=== PATIENT | male | born 1940 | race Caucasian/White ===

== ENCOUNTER 2020-02-23 06:49 | Inpatient (IN) | payer MEDICARE, SELFPAY ==
[2020-02-23] VITALS (16 sets, daily range): BP systolic 92–192; BP diastolic 59–94; PULSE 71–85; RESP 15–20; TEMP 36.4–36.7; O2SAT 96–100; BMI 30.9
--- NOTE | 2020-02-23 | ECG_ITS ---
Measurements Intervals [place] Rate: 71 P: 40 CO: 260 QRS: -45 QRSD: 170 T: -13 QT: 441 QTc: 482 Interpretive Statements SINUS RHYTHM WITH FIRST DEGREE AV BLOCK RIGHT BUNDLE BRANCH BLOCK LEFT ANTERIOR FASCICULAR BLOCK ABNORMAL ECG Electronically Signed On 02-23-2020 15:36:02 CDT by Rob Pierre D.O.
--- NOTE | 2020-02-23 | ECHO_ITS ---
Patient Info Name: Kenan Grubbs Age: 79 years : 1940 Gender: Male Ht: 70 in Wt: 216 lbs BSA: 2.23 m2 HR: 71 bpm BP: 103 / 59 mmHg Heart Rhythm: Sinus Rhythm Technical Quality: Good Exam Date: 02/23/2020 3:55 PM Exam Location: [facility] Patient Status: Inpatient Admit Date: 02/23/2020 Staff Ordering Physician: Tj Whyte MD Anchor Tack Puller: Nik Monzon RDCS Attending Provider: William Teixeira MD Referring Physician: Isabell GALDAMEZ; Exam Type: CA echo doppler color flow Study Info Indications R07.9 - Chest pain, unspecified Complete two-dimensional, color flow and Doppler transthoracic echocardiogram is performed. Strain analysis performed. History/Risk Factors Chest pain; COPD, Afib, CAD, HTN. Summary 1. Left ventricular chamber dimension is mildly enlarged. 2. Left ventricular systolic function is normal, estimated at 55-60%. 3. There is mildly increased left ventricular wall thickness. 4. Left ventricular septal wall motion is normal. 5. Global longitudinal strain is abnormal at -12 %. 6. The left ventricular diastolic function is grade I diastolic dysfunction. 7. The inferior wall is hypokinetic. 8. All other betancourt appear normal. 9. Left atrial chamber dimension is moderately enlarged. 10. Right atrial chamber dimension is mildly enlarged. 11. There is mild aortic valve regurgitation. 12. There is mild aortic valve calcification. 13. There is mild mitral valve regurgitation. 14. There is mild tricuspid valve regurgitation. 15. Mild pulmonary hypertension, estimated pulmonary arterial systolic pressure is 41 mmHg. 16. The aortic root size at the sinus of Valsalva is mildly dilated. Left Ventricle Left ventricular chamber dimension is mildly enlarged. Left ventricular systolic function is normal, estimated at 55-60%. There is mildly increased left ventricular wall thickness. Left ventricular septal wall motion is normal. The left ventricular diastolic function is grade I diastolic dysfunction. Global longitudinal strain is abnormal at -12 %. The inferior wall is hypokinetic. All other betancourt appear normal. Right Ventricle Right ventricular chamber dimension is normal. Right ventricular systolic function is normal. Left Atria Left atrial chamber dimension is moderately enlarged. Right Atria Right atrial chamber dimension is mildly enlarged. Atrial Septum Intact interatrial septum visualized by color flow imaging. Aortic Valve The aortic valve is trileaflet. There is no aortic valve stenosis. There is mild aortic valve regurgitation. There is mild aortic valve calcification. Pulmonic Valve The pulmonic valve is normal. There is no pulmonic valve stenosis. There is trace pulmonic regurgitation. Mitral Valve The mitral valve has calcified annulus. There is no mitral valve stenosis. There is mild mitral valve regurgitation. Tricuspid Valve The tricuspid valve leaflets are normal. There is no significant tricuspid valve stenosis. There is mild tricuspid valve regurgitation. Mild pulmonary hypertension, estimated pulmonary arterial systolic pressure is 41 mmHg. Pericardium/Pleural The pericardium appears normal. There is trivial pericardial effusion. Inferior Vena Cava Dilated inferior vena cava with <50% collapse upon inspiration consistent with elevated right atrial pressure, 10 mmHg. Aorta The aortic root size at the sinus of Valsalva is mildly dilated.
--- NOTE | ~2020-02-23 | CT_ITS ---
EXAMINATION: CT abdomen pelvis w con DATE: 02/23/2020 08:09 INDICATION: Upper abdominal pain, right upper quadrant. Nausea and vomiting. TECHNIQUE: Computed tomography (CT) of the abdomen and pelvis was performed with 100 cc Omnipaque 350 intravenous contrast. Automated exposure control and iterative reconstruction technique were employe d. Exam dose: 1161.58 mGy-cm total exam DLP. COMPARISON: 02/06/2019 CT abdomen pelvis FINDINGS: There is mild infiltrate, atelectasis and/or scarring in the lower lobes. There is mild dis coid atelectasis or scarring of the middle lobe. There is a small likely benign right greater fissure lymph node. Cardiomegaly. No pericardial effusion. Slight left pleural effusion. Small sliding hiatal hernia. There is intrahepatic and extrahepatic bile duct dilatation, common bile duct dilated up to 14 mm genoveva meter. The common bile duct tapers distally, without any obvious filling defect. Common bile duct siz e is not significantly changed compared to 02/06/2019, possibly secondary to cholecystectomy. Several small hepatic cysts are suggested, the largest measuring approximately 7 mm. Normal splenic size. No pancreatic mass lesion or ductal dilatation or abnormal pancreatic calcificat ion. Normal morphology of the adrenal glands. Occasional bilateral renal cysts, the largest situated on the right, measuring approximately 3.2 cm d imension. No suspicious solid renal lesion is evident. No urinary tract calculus or hydroureteronephr osis. There is an abdominal aortobiiliac endovascular stent for repair of infrarenal abdominal aortic aneur ysm. The aneurysm measures up to 6.5 cm diameter compared to approximately 6.1 cm on 02/06/2019. No intraperitoneal or retroperitoneal or pelvic mass lesion or adenopathy or ascites is evident. There is soft tissue thickening along the posterior wall of the urinary bladder which is most likely due to prostate enlargement versus much less likely possibility of prostate or urinary bladder malign aditya. The 1.3 cm peripheral density of the left trigonal region noted on the 02/06/2019 CT abdomen pelv is examination is no longer present. Diverticulosis of the colon; no CT evidence of diverticulitis. Normal appendix. No bowel obstruction, bowel wall thickening, pneumatosis or intraperitoneal free air is detected. Healed or advanced healing lower left rib fractures. Degenerative changes of the thoracic and lumbar spine, including diffuse idiopathic skeletal hyperost osis of the lower thoracic spine. There are multiple compression fracture deformities of the lower th oracic and lumbar spine including T11, L1 and L5. Bilateral L4 pars interarticularis defects are again noted, without spondylolisthesis. No suspicious osteolytic or osteoblastic lesions are noted. Bilateral fat-containing inguinal hernias. IMPRESSION: Stable bile duct dilatation, likely secondary to cholecystectomy Small sliding hiatal hernia Hepatic and renal cysts Diverticulosis of the colon Abdominal aortic and biiliac endovascular stent; mildly increased size of infrarenal fusiform abdomin al aortic aneurysm, measuring up to 6.5 cm diameter compared to 6.1 cm on 02/06/2019 Reviewed, dictated and finalized at [facility]. Reviewed, dictated and finalized at [facility]. IMPRESSION: Stable bile duct dilatation, likely secondary to cholecystectomy Small sliding hiatal hernia Hepatic and renal cysts Diverticulosis of the colon Abdominal aortic and biiliac endovascular stent; mildly increased size of infra renal fusiform abdominal aortic aneurysm, measuring up to 6.5 cm diameter nick red to 6.1 cm on 02/06/2019
--- NOTE | ~2020-02-23 | NM_ITS ---
EXAMINATION: NM betsy stress w perfusion DATE: 02/24/2020 12:34 INDICATION: Chest tightness TECHNIQUE: Rest images were obtained following intravenous administration of 9.2 mCi Tc99m tetrofosmi n (Myoview). The patient was infused intravenously with Lexiscan (Regadenoson). Then, 87.7 mCi Tc99m tetrofosmin (Myoview) was administered intravenously, and stress images were obtained. Data was recon structed into short axis and horizontal and vertical long axis SPECT images. Gated SPECT images were also obtained. COMPARISON: None. FINDINGS: There is no definite reversible or fixed perfusion abnormality to suggest ischemia or infar ction. There is normal left ventricular chamber size, wall motion and ejection fraction. Left ventr icular ejection fraction measures 63%. IMPRESSION: 1. Normal myocardial perfusion at rest and during stress. 2. Left ventricular ejection fraction measuring 63%. Reviewed, dictated and finalized at [facility].
--- NOTE | 2020-02-23 07:00 | ECG_ITS ---
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 COMPARED TO ECG 07/31/2019 10:42:53 SINUS RHYTHM NOW PRESENT FIRST DEGREE AV BLOCK NOW PRESENT LEFT-AXIS DEVIATION NOW PRESENT MTDD
--- NOTE | 2020-02-23 07:05 | ED.ABDPAIN ---
HPI - Abdominal Pain General Chief Complaint: Abdominal Pain Stated Complaint: RUQ abd pain Time Seen by Provider: 02/23/20 07:01 Source: patient and family Mode of arrival: EMS Limitations: no limitations History of Present Illness HPI narrative: Patient is a 79-year-old male with a history of Parkinson's dementia, COPD, atrial fibrillation on Eliquis, who presents to the emergency department for evaluation of chest and abdominal pain. Patient states he awakened this morning to a substernal chest pressure and upper epigastric abdominal pain. Patient also reports abdominal pain in the upper part of his right abdomen. He had associated dizziness, nausea, vomiting. Patient did not feel sweaty. He denies back pain. No ripping or tearing sensation to the flanks. No numbness or tingling. No syncope or loss of consciousness. Patient denies any cough or shortness of breath. No fever. No abdominal distention or diarrhea. Chest pain is currently resolved. Mild epigastric abdominal pain in a bandlike pattern across his abdomen. Related Data Home Medications Medication Instructions Recorded Confirmed alfuzosin mg PO 10/27/19 apixaban [Eliquis] mg 10/27/19 budesonide-formoterol [Symbicort] INHALATION 10/27/19 flecainide 10/27/19 fluticasone propionate INTRANASAL 10/27/19 ipratropium-albuterol [Combivent INHALATION 10/27/19 Respimat] isosorbide mononitrate mg PO 10/27/19 montelukast mg 10/27/19 triamterene-hydrochlorothiazid cap 10/27/19 aspirin 81 mg PO DAILY 02/23/20 polyethylene glycol 3350 [Miralax] 02/23/20 02/23/20 potassium chloride meq PO 02/23/20 02/23/20 sennosides [Perdiem Overnight mg 02/23/20 02/23/20 Relief] Allergies Allergy/AdvReac Type Severity Reaction Status Date / Time tetanus and diphtheria Allergy Severe FEVER, Verified 02/23/20 11:03 toxoids CHILLS clindamycin Allergy Unknown RASH Verified 02/23/20 11:03 amiodarone AdvReac Severe liver Verified 02/23/20 11:03 toxicity Review of Systems Review of Systems: Narrative: CONSTITUTIONAL: Denies fever, chills, or sweats. EYES: Denies visual changes ENT: Denies rhinorrhea, congestion CARDIOVASCULAR: Denies chest pain, palpitations, or edema. RESPIRATORY: Denies cough or dyspnea. GASTROINTESTINAL: Reports abdominal pain, nausea, vomiting, denies diarrhea GENITOURINARY: Denies dysuria or hematuria. SKIN: Denies rash or itching. MUSCULOSKELETAL: Denies back pain, joint pain, or myalgia. NEUROLOGIC: Denies headache, numbness, or weakness. Dizziness earlier, now resolved. [facility] Past Medical History Medical History Anemia Anxiety Arthritis of both knees Atrial fibrillation Bladder tumor Bowel obstruction BPH (benign prostatic hyperplasia) Cataracts, bilateral Constipation COPD (chronic obstructive pulmonary disease) Coronary artery disease Depression History of angina Hypercholesterolemia Hypertension Pneumonia Pulmonary embolism Tremor Urinary tract infection Surgical History Surgical History History of AAA (abdominal aortic aneurysm) repair History of cardiac cath History of cholecystectomy History of inguinal hernia repair Hx of CABG Family History Family History (Updated 02/23/20 @ 10:25 by Awilda Jay RN) Mother Acute myocardial infarction Social History Social History Smoking packs per day: 1 Smoking cigarettes per day: 20.0 Years smoked: 25 Smoking pack-years: 25.00 Smoking status: Former smoker Tobacco type: cigarettes Alcohol intake: current Substance use: never Additional living arrangements comments: Lives at home with daughter Gender identity (if verbalized by the patient): Male Spiritual care concerns: No Exam Narrative: Exam Narrative: GENERAL: Awake, alert, conversant, mild resting tremor bilate
--- NOTE | 2020-02-23 07:07 | ECG_ITS ---
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
--- NOTE | 2020-02-23 07:12 | PC.NURSE ---
PT CARE ASSUMED AT THIS TIME, ERP AT BEDSIDE FOR EVALUATION, PT NOTED TO BE IN AFIB WITH RVR, ERP INFORMED AND STATES NO EKG TO BE DONE, PT HAS KNOWN HX OF AFIB. PT SELF CONVERTS BACK TO SINUS WITH A HR IN THE 80'S WHILE ERP IS IN ROOM. PT RESTING COMFORTABLY IN BED AT THIS TIME, NO CONCERNS.
[2020-02-23 07:21] LABS: Basophils Percent Auto 0.3 % (0.2-1.2); Eosinophils Absolute Auto 0.2 K/mm3 (0-0.3); Eosinophils Percent Auto 2.6 % (0-4.4); Hematocrit 34.3 % (42.0-52.0); Hemoglobin 11.1 g/dL (14.0-18.0); Immature Granulocyte Absolute 0.02 K/mm3 (0.00-0.031); Immature Granulocyte Percent A 0.3 % (0-0.5); Lymphocytes Percent Auto 11.5 % (18.3-44.2); Mean Corpuscular HGB Conc 32.4 g/dl (32-36); Mean Corpuscular Hemoglobin 29.1 pg (26-34); Mean Corpuscular Volume 89.8 fl (80-100); Mean Platelet Volume 9.5 fl (7.4-10.4); Monocytes Absolute Auto 0.5 K/mm3 (0.1-0.6); Monocytes Percent Auto 8.1 % (2.6-8.5); Neutrophils Absolute Auto 4.7 K/mm3 (1.3-6.7); Neutrophils Percent Auto 77.2 % (45.5-73.1); Platelet Count Result 127 k/mm3 (150-375); Red Blood Count 3.82 M/mm3 (4.6-6.20); Red Cell Distribution Width 13.6 % (11.5-14.5); White Blood Count 6.1 K/mm3 (4.5-10.0)
[2020-02-23 07:33] LABS: Alanine Aminotransferase 12 U/L (4-50); Albumin Level 3.6 g/dL (3.5-5.1); Alkaline Phosphatase 124 U/L (38-126); Aspartate Amino Transferase 21 U/L (17-59); Bilirubin,Total 0.3 mg/dL (0.2-1.3); Blood Urea Nitrogen 28 mg/dL (9-20); Calcium 8.8 mg/dL (8.4-10.2); Carbon Dioxide 35 mmol/L (22-30); Chloride 100 mmol/L (98-107); Estimated Glomerular Filt Rate 49; Glucose 105 mg/dL (75-110); Lipase 64 U/L (23-300); Potassium 3.5 mmol/L (3.4-5.0); Sodium 139 mmol/L (137-145)
[2020-02-23 07:45] LABS: INR 1.1; Prothrombin Time 13.9 Seconds (11.1-14.7)
[2020-02-23 07:46] LABS: Partial Thromboplastin Time 28.3 SECONDS (22.3-36.8)
--- NOTE | 2020-02-23 07:51 | PC.NURSE ---
PT INFORMED OF NEED FOR URINE SAMPLE, REFUSING CATH. TECH AT BEDSIDE TAKING PT TO CT AT THIS TIME IN STRETCHER.
[2020-02-23 08:01] LABS: Troponin I < 0.012 ng/mL (0.000-0.034)
--- NOTE | 2020-02-23 08:13 | PC.NURSE ---
PT HAS RETURNED FROM CT AT THIS TIME. 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
--- NOTE | 2020-02-23 08:17 | PC.NURSE ---
PT ATTEMPTING URINE SAMPLE AT THIS TIME.
[2020-02-23 08:31] LABS: Add Urine Microscopic? YES; Appearance Urine Cloudy (Clear); Bacteria Urine 1+ /hpf; Bilirubin Urine Negative (Negative); Blood Urine 1+ (Negative); Color Urine Yellow (Yellow); Glucose Urine UA Negative (Negative); Ketones Urine Negative (Negative); Leukocyte Esterase Ur 3+ LEU/UL (Negative); Mucus Urine Rare /lpf; Nitrate Urine Negative (Negative); Protein Urine 1+ mg/dL (Negative); Specific Grav Ur 1.025 (1.001-1.035); Squamous Epithelial Cell Urine Rare /hpf (Few); Urobilinogen Urine Negative mg/dL (<2.0); WBC Urine >75 /hpf
[2020-02-23] MEDS: ONDANSETRON INJ 4 MG/2 ML VIAL IV PUSH (08:52)
[2020-02-23] MEDS: MORPHINE SULFATE 4 MG/ML INJ 2 MG IV PUSH (08:52)
[2020-02-23] MEDS: MAG HYDROX/AL HYDROX/SIMETH 30 ML UDC PO (08:52)
[2020-02-23] MEDS: SODIUM CHLORIDE 0.9% IV 500 ML 999 ML IV CONT (08:54)
[2020-02-23] MEDS: ASPIRIN 81 MG CHEWABLE TABLET 324 MG PO (09:37)
--- NOTE | 2020-02-23 10:12 | PC.NURSE ---
This patient, Kenan Grubbs, was admitted to IMU Room 232-01. Patient/family oriented to hospital policies and general routines including ID bracelet, bed and alarms, visiting hours, pain management, procedures, bathroom and other care routines, personal items, smoking policy, room service/diet, and visiting hours. Valuables list has been completed. Information on how to activate the Rapid Response Team has been discussed. Patient/Family are encouraged to report perceived risks to care and to ask questions if they do not understand what they are told or what they should do.
[2020-02-23 10:51] LABS: Troponin I < 0.012 ng/mL (0.000-0.034)
[2020-02-23] MEDS: NITROGLYCERIN SL 0.4 MG TABLET SUBLINGUAL ×2 (11:38→11:43)
--- NOTE | 2020-02-23 11:41 | ECG_ITS ---
Measurements Intervals [place] Rate: 75 P: 25 PA: 240 QRS: 107 QRSD: 166 T: 75 QT: 423 QTc: 473 Interpretive Statements SINUS RHYTHM WITH FIRST DEGREE AV BLOCK RIGHT AXIS DEVIATION RIGHT BUNDLE BRANCH BLOCK MINIMAL Q WAVES- INFERIOR LEADS ABNORMAL ECG Electronically Signed On 02-23-2020 12:35:02 CDT by Rob Pierre D.O.
--- NOTE | 2020-02-23 13:20 | PC.NURSE ---
Patient c/o left-sided chest pain & back pain, rating 5/10 with new onset. At 1137 gave patient Nitroglycerin 0.4 mg SL. Blood pressure noted to be 150/86. At 1144 chest pain remained 3/10, 2nd nitro given to patient. STAT EKG obtained at this time. After second nitro, patient stated that pain was 0/10. Federica Crystal NP reviewed EKG. Will continue to monitor closely. Blood pressure noted to be 103/59, heart rate 74.
[2020-02-23 14:00] LABS: Troponin I < 0.012 ng/mL (0.000-0.034)
--- NOTE | 2020-02-23 15:19 | PM.CNCAR ---
Assessment and Plan Assessment and plan (1) Acute UTI: Code(s): N39.0 - Urinary tract infection, site not specified Status: Acute Assessment and Plan: On antibiotics (2) Dizziness: Code(s): R42 - Dizziness and giddiness Status: Acute Assessment and Plan: Sounds vertiginous (3) PAF (paroxysmal atrial fibrillation): Code(s): I48.0 - Paroxysmal atrial fibrillation Status: Acute Assessment and Plan: Continue Eliquis. In sinus rhythm at this point. Continue flecainide (4) History of AAA (abdominal aortic aneurysm) repair: Code(s): Z98.890 - Other specified postprocedural states Status: Acute Assessment and Plan: Status post stent graft (5) Chest tightness: Code(s): R07.89 - Other chest pain Status: Acute Assessment and Plan: Troponins are negative. Symptoms are atypical but and is not excluded given the fact that his chest tightness did improve with nitroglycerin. Continue rule out with serial troponins. 2D echocardiogram Doppler is ordered. NPO after midnight for Lexiscan myocardial perfusion study. Will prescribe p.r.n. 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 Narrative: Reason for consultation chest pain Date of service 02/23/2020 History: Patient is a 79-year-old male with a history of Parkinson's, paroxysmal atrial fibrillation, chronic anticoagulation. He came to hospital because of some chest pain. Patient describes as a tightness that is wrapping around his lower chest/upper abdominal area. He was given nitroglycerin which did help his symptoms. The 2nd nitroglycerin did drop his blood pressure. His 1st nitroglycerin tablet taken did reduce his pain however and the 2nd nitroglycerin tablet ease it completely. His symptoms started at 5:00 a.m. this morning. It has waxed and waned throughout the day. He does not have any associated sweatiness, shortness of breath or nausea. He denies any recent syncope, presyncope, paroxysmal nocturnal dyspnea, orthopnea, edema. He does have some shortness of breath with activity which has not taken new or different. He also describes some dizziness whenever he gets. Dizziness is described as the room is spinning. Review of Systems Review of Systems: All systems reviewed & are unremarkable except as noted in HPI and below Constitutional: Constitutional: Denies body ache(s) and Denies chills Eyes: Eyes: Denies blurry vision ENT: Reports Normal hearing present and Denies epistaxis Cardiovascular: Cardiovascular: Reports chest pain Respiratory: Respiratory: Reports dyspnea and Reports dyspnea on exertion Gastrointestinal: Gastrointestinal: Denies nausea and Denies vomiting Genitourinary: Genitourinary: Denies dysuria and Denies urinary frequency Musculoskeletal: Musculoskeletal: Denies back pain and Denies neck pain Integumentary/Breasts: Skin/Breast: Denies rash Neurologic: Denies headache(s) Psychiatric: Psychiatric: Denies anxiety Endocrine: Endocrine: Denies fatigue Hematologic/Lymphatic: Hematologic/Lymphatic: Denies easy bleeding and Denies easy bruising Allergic/Immunologic: Allergic/Immunologic: Denies GI upset with certain foods and Denies lip swelling PMFSH Past Medical History Medical History Anemia Anxiety Arthritis of both knees Atrial fibrillation Bladder tumor Bowel obstruction BPH (benign prostatic hyperplasia) Cataracts, bilateral Constipation COPD (chronic obstructi
--- NOTE | 2020-02-23 17:40 | PM.IMHP ---
H&P: HPI History of Present Illness Chief complaint: Chest and abdominal pain. Narrative: Kenan Grubbs is a 79-year-old male with coronary artery disease, paroxysmal atrial fibrillation on long-term anticoagulation, COPD, chronic respiratory failure, chronic kidney disease stage 3, chronic anemia, BPH, and history of bladder cancer who presented to the emergency department earlier today for evaluation of chest and abdominal pain. He reports feeling a bit lightheaded and dizzy when he got up to use the restroom this morning ?like a washing machine? but that passed quickly. Not long thereafter, he developed diffuse upper abdominal/low chest pressure accompanied by nausea. It lasted approximately 1 hour before he decided to come in for evaluation. He was given nitroglycerin emergency department and he thinks perhaps it may have helped a little bit, but nothing significant. With further questioning, he admits to not having much of an appetite today. He denies symptoms of GERD and indigestion has no history of peptic ulcers. He has never had similar symptoms before. He has a chronic cough due to COPD, which is unchanged. He has had some mild dysuria. He denies any shortness of breath other than his baseline, mild dyspnea on exertion. He always sleeps in a reclined position, and that is unchanged. He denies lower extremity edema and history of venous thromboembolism. He has not had fever, chills, or sweats. No pleuritic pain. He denies vomiting. No melena or hematochezia. Review of Systems Review of Systems: Narrative: Twelve systems were reviewed with pertinent positives and negatives as per HPI. No fever, chills, or sweats. He denies recent cold and flu symptoms. He has a chronic smoker's cough which is unchanged. He denies recent travel and sick contacts. He has chronic upper extremity tremors. Except as documented, all other systems were reviewed and are negative. [facility] Past Medical History Medical History (Updated 02/23/20 @ 22:51 by Josephine Alejandro PA-C) Atrial flutter with rapid ventricular response (~03/2017) Status post DC cardioversion. Benign prostatic hyperplasia Bladder cancer (~06/2019) Noninvasive low-grade papillary urothelial carcinoma. Bowel obstruction Chronic anemia Chronic kidney disease, stage 3 Baseline creatinine ranges between 1.3 and 1.50. Chronic obstructive pulmonary disease Chronic respiratory failure with hypoxia, on home oxygen therapy Compression fracture Chronic compression fractures in the low thoracic and lumbar spine. Coronary artery disease (~05/2016) Cardiac catheterization per Dr. Bills showed a 99% mid RCA lesion with unsuccessful PTCA as lesion was unable to be crossed. Depression with anxiety Essential hypertension Hyperlipidemia Osteoarthritis Paroxysmal atrial fibrillation Pneumonia Pulmonary embolism Tremor Surgical History Surgical History (Updated 02/23/20 @ 22:40 by Josephine Alejandro PA-C) History of abdominal aortic aneurysm repair (~2003) History of cardiac cath History of cataract extraction History of cholecystectomy History of inguinal hernia repair Status post surgical removal and fulguration of bladder neoplasm (~06/2019) Family History Family History (Updated 02/23/20 @ 22:41 by Josephine Alejandro PA-C) Mother Acute myocardial infarction Father Aortic aneurysm Sibling Aortic aneurysm Social History Social History (Updated 02/23/20 @ 22:42 by Josephine Alejandro PA-C) Social History: The patient lives in [place]. He is . His daughter lives at home with him. 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 He was a heavy smoker, up to 2 packs of cigarettes per day for 45 years, and he ultimately quit in 1999. He denies alcohol and drug abuse. He designates his daughter, Brandy Watt, as his surrogate decision maker and he wishes to be a full code. Additional living arrangements comments: Lives at home with daughter Spiritual care co
[2020-02-23] MEDS: FLECAINIDE ACETATE 100 MG TABLET PO (23:50)
[2020-02-24] VITALS (15 sets, daily range): BP systolic 97–147; BP diastolic 50–74; PULSE 73–91; RESP 16–22; TEMP 36.1–36.8; O2SAT 93–99
[2020-02-24 04:51] LABS: Basophils Percent Auto 0.6 % (0.2-1.2); Eosinophils Absolute Auto 0.2 K/mm3 (0-0.3); Eosinophils Percent Auto 3.8 % (0-4.4); Hematocrit 32.8 % (42.0-52.0); Hemoglobin 10.5 g/dL (14.0-18.0); Immature Granulocyte Absolute 0.03 K/mm3 (0.00-0.031); Immature Granulocyte Percent A 0.5 % (0-0.5); Lymphocytes Absolute Auto 0.91 K/mm3 (0.9-3.2); Lymphocytes Percent Auto 14.6 % (18.3-44.2); Mean Corpuscular Hemoglobin 28.8 pg (26-34); Mean Corpuscular Volume 89.9 fl (80-100); Monocytes Absolute Auto 0.6 K/mm3 (0.1-0.6); Monocytes Percent Auto 9.1 % (2.6-8.5); Neutrophils Absolute Auto 4.5 K/mm3 (1.3-6.7); Neutrophils Percent Auto 71.4 % (45.5-73.1); Platelet Count Result 136 k/mm3 (150-375); Red Blood Count 3.65 M/mm3 (4.6-6.20); Red Cell Distribution Width 13.4 % (11.5-14.5); White Blood Count 6.2 K/mm3 (4.5-10.0)
[2020-02-24 05:03] LABS: Alanine Aminotransferase 16 U/L (4-50); Albumin Level 3.3 g/dL (3.5-5.1); Alkaline Phosphatase 118 U/L (38-126); Aspartate Amino Transferase 30 U/L (17-59); Bilirubin,Total 0.3 mg/dL (0.2-1.3); Blood Urea Nitrogen 26 mg/dL (9-20); Calcium 8.2 mg/dL (8.4-10.2); Carbon Dioxide 39 mmol/L (22-30); Chloride 99 mmol/L (98-107); Estimated CRCL calculation 45 ml/min; Estimated Glomerular Filt Rate 49; Glucose 85 mg/dL (75-110); Potassium 3.6 mmol/L (3.4-5.0); Sodium 138 mmol/L (137-145)
[2020-02-24] MEDS: TRIAMTERENE 37.5 MG/HCTZ 25 MG (MAXZIDE) TABLET 1 TAB PO (09:19)
[2020-02-24] MEDS: POTASSIUM CHLORIDE 20 MEQ TABLET.ER PO (09:19)
[2020-02-24] MEDS: CHOLECALCIFEROL 1,000 UNIT TABLET 5000 UNITS PO (09:19)
[2020-02-24] MEDS: MONTELUKAST SODIUM 10 MG TABLET PO (09:20)
[2020-02-24] MEDS: MULTIVITS W-FE,MIN CHEWABLE TABLET 1 TABLET PO (09:21)
--- NOTE | 2020-02-24 09:30 | PC.NURSE ---
Patient to nuclear medicine for stress test via wheelchair.
--- NOTE | 2020-02-24 10:00 | EST_ITS ---
Patient Info Name: Kenan Grubbs Age: 79 years : 1940 Gender: Male Ht: 70 in Wt: 216 lbs BSA: 2.23 m2 Exam Date: 02/24/2020 10:45 AM Exam Location: [facility] Stress Patient Status: Inpatient Admit Date: 02/23/2020 Staff Ordering Physician: Tj Whyte MD Attending Provider: William Teixeira MD Exercise Technologist: Raj Portillo, RDCS, RT Nurse: Federica Crystal, ANP, ACNP-BC Exam Type: CA stress betsy w NM Study Info A regadenoson stress test was performed. Summary 1. Please correlate with nuclear medicine images, reported separately. 2. No abnormal ST-T wave changes with lexiscan. Protocol: Lexiscan Stress ECG Details Stage: REST Duration (min): 1 min : 29 sec HR (bpm): 88 SBP (mmHg): 213 DBP (mmHg): 91 Stage: REST Duration (min): 12 min : 54 sec HR (bpm): 86 SBP (mmHg): 213 DBP (mmHg): 91 Stage: STAGE 1 Duration (min): 0 min : 59 sec HR (bpm): 89 SBP (mmHg): 179 DBP (mmHg): 77 Stage: RECOVERY Duration (min): 1 min : 0 sec HR (bpm): 91 SBP (mmHg): 179 DBP (mmHg): 77 Stage: RECOVERY Duration (min): 2 min : 0 sec HR (bpm): 93 SBP (mmHg): 179 DBP (mmHg): 77 Stage: RECOVERY Duration (min): 3 min : 0 sec HR (bpm): 94 SBP (mmHg): 168 DBP (mmHg): 70 Stage: RECOVERY Duration (min): 4 min : 0 sec HR (bpm): 94 SBP (mmHg): 168 DBP (mmHg): 70 Stage: RECOVERY Duration (min): 5 min : 0 sec HR (bpm): 94 SBP (mmHg): 136 DBP (mmHg): 54 Stage: RECOVERY Duration (min): 6 min : 0 sec HR (bpm): 94 SBP (mmHg): 136 DBP (mmHg): 55 Stage: RECOVERY Duration (min): 7 min : 0 sec HR (bpm): 93 SBP (mmHg): 137 DBP (mmHg): 56 Stage: RECOVERY Duration (min): 8 min : 0 sec HR (bpm): 94 SBP (mmHg): 137 DBP (mmHg): 56 Stage: RECOVERY Duration (min): 8 min : 9 sec HR (bpm): 93 SBP (mmHg): 137 DBP (mmHg): 56 Rest HR: 86 bpm Peak HR: 96 bpm Rest Sys BP: 213 mmHg Peak Sys BP: 179 mmHg Max Pred HR: 141 bpm % Max Pred HR: 68 % Target HR: 120 bpm Max RPP: 17,184 bpm*mmHg BP Response: Normal blood pressure response Termination Reason: Completed protocol Cardiac Symptoms: None Total Time: 1 min : 0 sec Rest Mcduffie BP: 91 mmHg Peak Mcduffie BP: 77 mmHg Total Dose: 0.4 mg Resting ECG Normal sinus rhythm. Right bundle branch block. Stress ECG No abnormal ST/T wave changes with exercise. Non-diagnostic ECG due to right bundle branch block. Arrhythmias Occasional PVCs. Report Signatures
--- NOTE | 2020-02-24 11:22 | PM.PNCARD ---
Progress Note: A&P Assessment and Plan (1) Acute UTI: Code(s): N39.0 - Urinary tract infection, site not specified Status: Acute Assessment and Plan: On antibiotics (2) Dizziness: Code(s): R42 - Dizziness and giddiness Status: Acute Assessment and Plan: Sounds vertiginous (3) PAF (paroxysmal atrial fibrillation): Code(s): I48.0 - Paroxysmal atrial fibrillation Status: Inactive Assessment and Plan: Continue Eliquis. In sinus rhythm at this point. Continue flecainide (4) History of AAA (abdominal aortic aneurysm) repair: Code(s): Z98.890 - Other specified postprocedural states Status: Acute Assessment and Plan: Status post stent graft (5) Chest tightness: Code(s): R07.89 - Other chest pain Status: Acute Assessment and Plan: Troponins are negative. Symptoms are atypical but and is not excluded given the fact that his chest tightness did improve with nitroglycerin. Troponin negative X 3 Continue rule out with serial troponins. Echo: Left ventricular chamber dimension is mildly enlarged. Left ventricular systolic function is normal, estimated at 55-60%. There is mildly increased left ventricular wall thickness. Left ventricular septal wall motion is normal. Global longitudinal strain is abnormal at -12 %. The left ventricular diastolic function is grade I diastolic dysfunction. The inferior wall is hypokinetic. All other bet[place] appear normal. Left atrial chamber dimension is moderately enlarged. Right atrial chamber dimension is mildly enlarged. There is mild aortic valve regurgitation. There is mild aortic valve calcification. There is mild mitral valve regurgitation. There is mild tricuspid valve regurgitation. Mild pulmonary hypertension, estimated pulmonary arterial systolic pressure is 41 mmHg. The aortic root size at the sinus of Valsalva is mildly dilated. Lexiscan myocardial perfusion study. 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 Very mild upper abdominal discomfort. No shortness of breath. Lightheaded when getting up today. No dizziness similar to the symptoms that brought him to the hospital. Review of Systems Constitutional: Constitutional: Denies body ache(s), Denies chills, Denies fatigue and Denies headache(s) Eyes: Eyes: Denies blurry vision ENT: Reports Normal hearing present, Denies headache(s), Denies lip swelling, Denies epistaxis and Denies neck pain Cardiovascular: Cardiovascular: Reports chest pain (with upper abdominal pressure) and Reports dyspnea on exertion Respiratory: Respiratory: Reports dyspnea on exertion Gastrointestinal: Gastrointestinal: Denies nausea and Denies vomiting Genitourinary: Genitourinary: Denies dysuria and Denies urinary frequency Musculoskeletal: Musculoskeletal: Denies back pain and Denies neck pain Integumentary/Breasts: Skin/Breast: Denies rash Neurologic: Reports Normal hearing present and Denies headache(s) Psychiatric: Psychiatric: Denies anxiety Endocrine: Endocrine: Denies fatigue Hematologic/Lymphatic: Hematologic/Lymphatic: Denies easy bleeding and Denies easy bruising Allergic/Immunolo
--- NOTE | 2020-02-24 11:53 | PC.NURSE ---
Patient returned to room following stress test.
[2020-02-24] MEDS: PHARMACIST COMMUNICATION ORDER 1 EACH XX (12:01)
[2020-02-24] MEDS: ASPIRIN 81 MG CHEWABLE TABLET PO (13:20)
[2020-02-24] MEDS: FLECAINIDE ACETATE 100 MG TABLET PO (13:20)
[2020-02-24] MEDS: ISOSORBIDE MONONITRATE 30 MG TAB.ER.24H PO (13:20)
--- NOTE | 2020-02-24 14:50 | PM.IMPN ---
Progress Note: A&P Assessment and Plan (1) Chest discomfort: Code(s): R07.89 - Other chest pain Status: Acute Assessment and Plan: Chest pain atypical. Cardiology consulted and appreciate input. Lexiscan stress test done today and normal. Serial troponin levels negative. Echocardiogram with EF 55-60%, diastolic dysfunction grade 1 and mild pulmonary hypertension. Discussed with Cardiology. Telemetry reviewed on 02/24/2020 with sinus rhythm. Will transfer to medical floor as patient still slightly unsteady but no need for further inpatient cardiac evaluation. Hopeful discharge tomorrow. (2) Urinary tract infection: Qualifiers: Urinary tract infection type: site unspecified Hematuria presence: without hematuria Qualified Code(s): N39.0 - Urinary tract infection, site not specified Code(s): N39.0 - Urinary tract infection, site not specified Status: Acute Assessment and Plan: Urinalysis suspicious on admission. Will continue IV ceftriaxone while awaiting final urine culture results. (3) Paroxysmal atrial fibrillation: Code(s): I48.0 - Paroxysmal atrial fibrillation Status: Acute Assessment and Plan: In sinus rhythm today as noted on telemetry. Will continue flecainide. Apixaban resumed with normal Lexiscan stress test. Will monitor clinically. (4) Chronic obstructive pulmonary disease: Qualifiers: COPD type: unspecified COPD Qualified Code(s): J44.9 - Chronic obstructive pulmonary disease, unspecified Code(s): J44.9 - Chronic obstructive pulmonary disease, unspecified Status: Acute Assessment and Plan: No exacerbation. On 2 L of oxygen. Continue home Combivent and Symbicort. Will monitor. (5) Chronic respiratory failure with hypoxia, on home oxygen therapy: Code(s): J96.11 - Chronic respiratory failure with hypoxia; Z99.81 - Dependence on supplemental oxygen Status: Acute Assessment and Plan: Remains on home oxygen at 2 L. Continue respiratory inhalers as noted. (6) Chronic kidney disease, stage 3: Code(s): N18.3 - Chronic kidney disease, stage 3 (moderate) Status: Acute Assessment and Plan: Creatinine stable at his baseline at 1.40 today. Will monitor while here. (7) Chronic anemia: Code(s): D64.9 - Anemia, unspecified Status: Acute Assessment and Plan: Hemoglobin and hematocrit are stable on review of previous labs. (8) Coronary artery disease: Onset Date: ~05/2016 Qualifiers: Coronary Disease-Associated Artery/Lesion type: [place] artery [place] vs. transplanted heart: [place] heart Associated angina: without angina Qualified Code(s): I25.10 - Atherosclerotic heart disease of [place] coronary artery without angina pectoris Code(s): I25.10 - Atherosclerotic heart disease of [place] coronary artery without angina pectoris Status: Acute Assessment and Plan: No acute issue. Appreciate input from cardiology. Continue home Imdur. (9) Essential hypertension: Code(s): I10 - Essential (primary) hypertension Status: Acute Assessment and Plan: Blood pressure reviewed on 02/24/2020 and now improved. Continue to monitor on Imdur and Maxzide. (10) DVT prophylaxis: Code(s): Z29.9 - Encounter for prophylactic measures, unspecified Status: Acute Assessment and Plan: Home apixaban resumed. Time Spent With Patient Time with patient: 15 - 25 minutes Subjective Date/time seen: 02/24/20 14:50 Interval history: Date of Service: 02/24/2020. Admitted with chest pain, dizziness, possible UTI. Patient reports feeling better today but still with some dizziness at times. No current chest pain or chest pressure. Does have some left-sided abdominal pain. No nausea or vomiting. Denies current urinary symptoms. Review of Systems Revi
--- NOTE | 2020-02-24 16:36 | ECG_ITS ---
Measurements Intervals [place] Rate: 89 P: 30 ME: 251 QRS: -56 QRSD: 169 T: 3 QT: 404 QTc: 492 Interpretive Statements SINUS RHYTHM WITH FIRST DEGREE AV BLOCK RIGHT BUNDLE BRANCH BLOCK LEFT ANTERIOR FASCICULAR BLOCK ABNORMAL ECG Electronically Signed On 02-25-2020 10:52:18 CDT by Rob Pierre D.O.
[2020-02-24] MEDS: APIXABAN 2.5 MG TABLET PO (17:49)
--- NOTE | 2020-02-24 17:56 | PC.NURSE ---
This patient, Kenan Grubbs, was transferred to [facility] on 02/24/20 at 1756. Personal belongings sent with patient. Report given to MEGGAN Gonzalez. Appropriate documentation sent with patient.
--- NOTE | 2020-02-24 18:11 | PC.NURSE ---
This patient, Kenan Grubbs, was received from IMU[ ] on 02/24/20 at 1800. Personal belongings list checked and signed. Patient/family oriented to unit policies and routines
[2020-02-25] VITALS (7 sets, daily range): BP systolic 119–131; BP diastolic 66–78; PULSE 76–88; RESP 16–20; TEMP 36.5–36.7; O2SAT 93–99
[2020-02-25 06:15] LABS: Hematocrit 33.7 % (42.0-52.0); Hemoglobin 10.9 g/dL (14.0-18.0); Mean Corpuscular HGB Conc 32.3 g/dl (32-36); Mean Corpuscular Hemoglobin 29.4 pg (26-34); Mean Corpuscular Volume 90.8 fl (80-100); Mean Platelet Volume 10.2 fl (7.4-10.4); Platelet Count Result 138 k/mm3 (150-375); Red Blood Count 3.71 M/mm3 (4.6-6.20); Red Cell Distribution Width 13.4 % (11.5-14.5); White Blood Count 6.4 K/mm3 (4.5-10.0)
[2020-02-25 06:32] LABS: Blood Urea Nitrogen 26 mg/dL (9-20); Calcium 8.5 mg/dL (8.4-10.2); Carbon Dioxide 35 mmol/L (22-30); Chloride 99 mmol/L (98-107); Estimated CRCL calculation 48 ml/min; Estimated Glomerular Filt Rate 53; Glucose 85 mg/dL (75-110); Magnesium 2.1 mg/dL (1.6-2.3); Potassium 3.5 mmol/L (3.4-5.0); Sodium 137 mmol/L (137-145)
[2020-02-25] MEDS: CHOLECALCIFEROL 1,000 UNIT TABLET 5000 UNITS PO (08:23)
[2020-02-25] MEDS: polyethylene glycoL 3350 17 GM POWD.PACK PO (08:23)
[2020-02-25] MEDS: POTASSIUM CHLORIDE 20 MEQ TABLET.ER PO (08:24)
[2020-02-25] MEDS: FLECAINIDE ACETATE 100 MG TABLET PO ×2 (08:24→16:34)
[2020-02-25] MEDS: MONTELUKAST SODIUM 10 MG TABLET PO (08:24)
[2020-02-25] MEDS: APIXABAN 2.5 MG TABLET PO ×2 (08:24→16:35)
[2020-02-25] MEDS: ISOSORBIDE MONONITRATE 30 MG TAB.ER.24H PO (08:24)
[2020-02-25] MEDS: MULTIVITS W-FE,MIN CHEWABLE TABLET 1 TABLET PO (08:24)
[2020-02-25] MEDS: TRIAMTERENE 37.5 MG/HCTZ 25 MG (MAXZIDE) TABLET 1 TAB PO (08:25)
--- NOTE | 2020-02-25 10:29 | PM.PNCARD ---
Progress Note: A&P Assessment and Plan (1) Acute UTI: Code(s): N39.0 - Urinary tract infection, site not specified Status: Acute Assessment and Plan: On antibiotics (2) Dizziness: Code(s): R42 - Dizziness and giddiness Status: Acute Assessment and Plan: Sounds vertiginous (3) PAF (paroxysmal atrial fibrillation): Code(s): I48.0 - Paroxysmal atrial fibrillation Status: Inactive Assessment and Plan: Continue Eliquis. In sinus rhythm at this point. Continue flecainide His potassium level is low and will replace with 40 mEq p.o. x1 of KCl. 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 I question this dose but will defer to his primary polysomnography technician, Dr. Bills for adjustments. Okay to discharge from Cardiology perspective Subjective Date/time seen: 02/25/20 10:29 Interval history: Follow-up for: Chest discomfort, history of mild coronary artery disease, COPD, Parkinson's tremor Date of service: 02/25/2020 Subjective: Feels better. Upper Abdominal pain is better. No shortness of breath. Review of Systems Review of Systems: All systems reviewed & are unremarkable except as noted in HPI and below Constitutional: Constitutional: Denies body ache(s), Denies chills, Denies fatigue and Denies headache(s) Eyes: Eyes: Denies blurry vision ENT: Reports Normal hearing present, Denies headache(s), Denies lip swelling, Denies epistaxis and Denies neck pain Cardiovascular: Cardiovascular: Reports chest pain (with upper abdominal pressure) and Reports dyspnea on exertion Respiratory: Respiratory: Reports dyspnea on exertion Gastrointestinal: Gastrointestinal: Denies nausea and Denies vomiting Genitourinary: Genitourinary: Denies dysuria and Denies urinary frequency Musculoskeletal: Musculoskeletal: Denies back pain and Denies neck pain Integumentary/Breasts: Skin/Breast: Denies rash Neurologic: Reports Normal hearing present and Denies headache(s) Psychiatric: Psychiatric: Denies anxiety Endocrine: Endocrine: Denies fatigue Hematologic/Lymphatic: Hematologic/Lymphatic: Denies easy bleeding and Denies easy bruising Allergic/Immunologic: Allergic/Immunologic: Denies GI upset with certain foods and Denies lip swelling Exam Narrative: Exam Narrative: Exam and ROS done in stress lab. Const: General: no acute distress HENMT: General nose exam: Normal nares present and no epistaxis Eyes: Sclera: sclerae normal Neck: Neck: supple Chest: Other: No reproducible chest wall or epigastric pain to palpation Resp: Auscultation: clear to auscultation bilaterally and diminished lung sounds bilateral in the lower lung valdez Cardio: Rate: regular rate Rhythm: regular rhythm Heart sounds: no murmurs Skin: General skin exam: normal color Neuro: Cranial nerves: Yes Normal hearing present Cognition (Neuro): normal cognition Speech: normal speech Other: Parkinsonian tremor noted Extrem: General: normal to inspection, no edema and no pedal edema Psych: Mental Status: mental status grossly normal Objective Data Vital Signs Vital Signs: Vital Signs - 24 hr 02/24/20 12:00 02/24/20 13:20 02/24/20 14:00 Temperature 36.6 C Pulse Rate 91 81 85 Respiratory Rate 16 Blood Pressure 147/74 H Pulse Oximetry 96 02/24/20 16:00 02/23
[2020-02-25] MEDS: POTASSIUM CHLORIDE 20 MEQ TABLET 40 MEQ PO (11:45)
[2020-02-25] MEDS: ASPIRIN 81 MG CHEWABLE TABLET PO (11:45)
--- NOTE | 2020-02-25 14:32 | PM.IMPN ---
Progress Note: A&P Assessment and Plan (1) Urinary tract infection: Qualifiers: Hematuria presence: without hematuria Urinary tract infection type: site unspecified Qualified Code(s): N39.0 - Urinary tract infection, site not specified Code(s): N39.0 - Urinary tract infection, site not specified Status: Acute Assessment and Plan: Urinalysis suspicious on admission. Urine culture now positive for Enterococcus. Was hoping for sensitivities to be available today but none available by late afternoon. Discussed with patient. Will place on IV ampicillin at this point while awaiting final results. Anticipate will most likely be discharged tomorrow as a result. Will continue to monitor. (2) Dizziness: Code(s): R42 - Dizziness and giddiness Status: Acute Assessment and Plan: Improving. Does have some wax in the left ear for which I will give him Debrox. Advised may need to follow-up with his primary physician or ENT as an outpatient. (3) Chest discomfort: Code(s): R07.89 - Other chest pain Status: Acute Assessment and Plan: Chest pain atypical. Cardiology consulted and appreciate input. Lexiscan stress test negative. Serial troponin levels negative. Echocardiogram with EF 55-60%, diastolic dysfunction grade 1 and mild pulmonary hypertension. Remains stable at this time. Will monitor while here. (4) Paroxysmal atrial fibrillation: Code(s): I48.0 - Paroxysmal atrial fibrillation Status: Acute Assessment and Plan: Remains in sinus rhythm. Continue flecainide. Continue apixaban for anticoagulation. (5) Chronic obstructive pulmonary disease: Qualifiers: COPD type: unspecified COPD Qualified Code(s): J44.9 - Chronic obstructive pulmonary disease, unspecified Code(s): J44.9 - Chronic obstructive pulmonary disease, unspecified Status: Acute Assessment and Plan: Stable. No exacerbation. On 2 L of oxygen. Continue home Combivent and Symbicort. Will monitor. (6) Chronic respiratory failure with hypoxia, on home oxygen therapy: Code(s): J96.11 - Chronic respiratory failure with hypoxia; Z99.81 - Dependence on supplemental oxygen Status: Acute Assessment and Plan: Remains on home oxygen at 2 L. Continue respiratory inhalers as noted. (7) Chronic kidney disease, stage 3: Code(s): N18.3 - Chronic kidney disease, stage 3 (moderate) Status: Acute Assessment and Plan: Creatinine remains stable and within his baseline at 1.30. Will monitor while here. (8) Coronary artery disease: Onset Date: ~05/2016 Qualifiers: Associated angina: without angina Coronary Disease-Associated Artery/Lesion type: [place] artery [place] vs. transplanted heart: [place] heart Qualified Code(s): I25.10 - Atherosclerotic heart disease of [place] coronary artery without angina pectoris Code(s): I25.10 - Atherosclerotic heart disease of [place] coronary artery without angina pectoris Status: Acute Assessment and Plan: No acute issue. Appreciate input from cardiology. Continue home Imdur. (9) Essential hypertension: Code(s): I10 - Essential (primary) hypertension Status: Acute Assessment and Plan: Blood pressure reviewed on 02/25/2020 and stable. Continue to monitor on Imdur and Maxzide. (10) Chronic anemia: Code(s): D64.9 - Anemia, unspecified Status: Acute Assessment and Plan: Hemoglobin remains stable at 10.9 today. Will only monitor periodically. (11) DVT prophylaxis: Code(s): Z29.9 - Encounter for prophylactic measures, unspecified Status: Acute Assessment and Plan: On home apixaban. Time Spent With Patient Time with patient: 15 - 25 minutes Subjective Date/time seen: 02/25/20 14:32 Interval history: Date of Service: 02/25/2020. Admitted with chest pain, dizziness, UTI. Continues to feel b
[2020-02-25] MEDS: AMPICILLIN 1 GM/NS 50 ML 1 GM/50 ML BAG IVPB ×2 (17:54→23:44)
[2020-02-25] MEDS: CARBAMIDE PEROXIDE 6.5% OT SOLN 15 ML BTL 5 DROP EACH EAR (21:08)
[2020-02-26] MEDS: AMPICILLIN 1 GM/NS 50 ML 1 GM/50 ML BAG IVPB ×2 (05:28→12:36)
[2020-02-26 06:00] VITALS: BP 130/77; PULSE 83; RESP 20; TEMP 36.7; O2SAT 92
[2020-02-26 06:29] LABS: Blood Urea Nitrogen 28 mg/dL (9-20); Calcium 8.9 mg/dL (8.4-10.2); Carbon Dioxide 34 mmol/L (22-30); Chloride 100 mmol/L (98-107); Estimated CRCL calculation 45 ml/min; Estimated Glomerular Filt Rate 49; Glucose 96 mg/dL (75-110); Potassium 3.5 mmol/L (3.4-5.0); Sodium 138 mmol/L (137-145)
[2020-02-26 09:02] VITALS: O2SAT 93
[2020-02-26] MEDS: CARBAMIDE PEROXIDE 6.5% OT SOLN 15 ML BTL 5 DROP EACH EAR (09:04)
[2020-02-26 09:05] VITALS: PULSE 84
[2020-02-26] MEDS: polyethylene glycoL 3350 17 GM POWD.PACK PO (09:05)
[2020-02-26] MEDS: FLECAINIDE ACETATE 100 MG TABLET PO (09:05)
[2020-02-26] MEDS: CHOLECALCIFEROL 1,000 UNIT TABLET 5000 UNITS PO (09:05)
[2020-02-26] MEDS: POTASSIUM CHLORIDE 20 MEQ TABLET.ER PO (09:06)
[2020-02-26] MEDS: TRIAMTERENE 37.5 MG/HCTZ 25 MG (MAXZIDE) TABLET 1 TAB PO (09:06)
[2020-02-26] MEDS: APIXABAN 2.5 MG TABLET PO (09:06)
[2020-02-26] MEDS: ASPIRIN 81 MG CHEWABLE TABLET PO (09:06)
[2020-02-26] MEDS: MULTIVITS W-FE,MIN CHEWABLE TABLET 1 TABLET PO (09:06)
[2020-02-26] MEDS: MONTELUKAST SODIUM 10 MG TABLET PO (09:06)
[2020-02-26] MEDS: ISOSORBIDE MONONITRATE 30 MG TAB.ER.24H PO (09:06)
--- NOTE | 2020-02-26 10:22 | PM.PNCARD ---
Progress Note: A&P Assessment and Plan (1) Acute UTI: Code(s): N39.0 - Urinary tract infection, site not specified Status: Acute Assessment and Plan: On antibiotics (2) Dizziness: Code(s): R42 - Dizziness and giddiness Status: Acute Assessment and Plan: Sounds vertiginous (3) PAF (paroxysmal atrial fibrillation): Code(s): I48.0 - Paroxysmal atrial fibrillation Status: Inactive Assessment and Plan: Continue Eliquis. In sinus rhythm at this point. Continue flecainide Potassium chloride 40 mEq p.o. 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 Okay to discharge from Cardiology perspective Subjective Date/time seen: 02/26/20 10:22 Interval history: Follow-up for: Chest discomfort, history of mild coronary artery disease, COPD, Parkinson's tremor Date of service: 02/26/2020 Subjective: Feels better. No chest pain or abdominal pain. No shortness of breath. Review of Systems Review of Systems: All systems reviewed & are unremarkable except as noted in HPI and below Constitutional: Constitutional: Denies body ache(s), Denies chills, Denies fatigue and Denies headache(s) Eyes: Eyes: Denies blurry vision ENT: Reports Normal hearing present, Denies headache(s), Denies lip swelling, Denies epistaxis and Denies neck pain Cardiovascular: Cardiovascular: Reports chest pain (with upper abdominal pressure) and Reports dyspnea on exertion Respiratory: Respiratory: Reports dyspnea on exertion Gastrointestinal: Gastrointestinal: Denies nausea and Denies vomiting Genitourinary: Genitourinary: Denies dysuria and Denies urinary frequency Musculoskeletal: Musculoskeletal: Denies back pain and Denies neck pain Integumentary/Breasts: Skin/Breast: Denies rash Neurologic: Reports Normal hearing present and Denies headache(s) Psychiatric: Psychiatric: Denies anxiety Endocrine: Endocrine: Denies fatigue Hematologic/Lymphatic: Hematologic/Lymphatic: Denies easy bleeding and Denies easy bruising Allergic/Immunologic: Allergic/Immunologic: Denies GI upset with certain foods and Denies lip swelling Exam Narrative: Exam Narrative: Exam and ROS done in stress lab. Const: General: no acute distress HENMT: General nose exam: Normal nares present and no epistaxis Eyes: Sclera: sclerae normal Neck: Neck: supple Chest: Other: No reproducible chest wall or epigastric pain to palpation Resp: Auscultation: clear to auscultation bilaterally and diminished lung sounds bilateral in the lower lung valdez Cardio: Rate: regular rate Rhythm: regular rhythm Heart sounds: no murmurs Skin: General skin exam: normal color Neuro: Cranial nerves: Yes Normal hearing present Cognition (Neuro): normal cognition Speech: normal speech Other: Parkinsonian tremor noted Extrem: General: normal to inspection, no edema and no pedal edema Psych: Mental Status: mental status grossly normal Objective Data Vital Signs Vital Signs: Vital Signs - 24 hr 02/25/20 14:00 02/25/20 16:34 02/25/20 20:18 Temperature 36.7 C Pulse Rate 78 76 79 Respiratory Rate 16 18 Blood Pressure 121/68 Pulse Oximetry 99 94 02/25/20 21:56 02/26/20 06:00
[2020-02-26] MEDS: POTASSIUM CHLORIDE 20 MEQ TABLET 40 MEQ PO (12:43)
--- NOTE | 2020-02-26 12:49 | PM.IMPN ---
Progress Note: A&P Assessment and Plan (1) Urinary tract infection: Qualifiers: Hematuria presence: without hematuria Urinary tract infection type: site unspecified Qualified Code(s): N39.0 - Urinary tract infection, site not specified Code(s): N39.0 - Urinary tract infection, site not specified Status: Acute Assessment and Plan: Urinalysis suspicious on admission. Urine culture positive for Enterococcus. Sensitivities available this afternoon and consistent with VRE but sensitive to ampicillin which was started yesterday. Will discharge home today. (2) Dizziness: Code(s): R42 - Dizziness and giddiness Status: Acute Assessment and Plan: No dizziness today. Does have some wax in the left ear for which I will give him Debrox. Advised may need to follow-up with his primary physician or ENT as an outpatient. (3) Chest discomfort: Code(s): R07.89 - Other chest pain Status: Acute Assessment and Plan: Chest pain atypical. Cardiology consulted and appreciate input. Lexiscan stress test negative. Serial troponin levels negative. Echocardiogram with EF 55-60%, diastolic dysfunction grade 1 and mild pulmonary hypertension. Remains stable at this time. (4) Paroxysmal atrial fibrillation: Code(s): I48.0 - Paroxysmal atrial fibrillation Status: Acute Assessment and Plan: Remains in sinus rhythm. Continue flecainide. Continue apixaban for anticoagulation. (5) Chronic obstructive pulmonary disease: Qualifiers: COPD type: unspecified COPD Qualified Code(s): J44.9 - Chronic obstructive pulmonary disease, unspecified Code(s): J44.9 - Chronic obstructive pulmonary disease, unspecified Status: Acute Assessment and Plan: Stable. No exacerbation. On 2 L of oxygen. Continue home Combivent and Symbicort. (6) Chronic respiratory failure with hypoxia, on home oxygen therapy: Code(s): J96.11 - Chronic respiratory failure with hypoxia; Z99.81 - Dependence on supplemental oxygen Status: Acute Assessment and Plan: Remains on home oxygen at 2 L as noted above. Continue respiratory inhalers as noted. (7) Chronic kidney disease, stage 3: Code(s): N18.3 - Chronic kidney disease, stage 3 (moderate) Status: Acute Assessment and Plan: Creatinine remains stable and within his baseline at 1.40. Follow as outpatient. (8) Coronary artery disease: Onset Date: ~05/2016 Qualifiers: Associated angina: without angina Coronary Disease-Associated Artery/Lesion type: [place] artery [place] vs. transplanted heart: [place] heart Qualified Code(s): I25.10 - Atherosclerotic heart disease of [place] coronary artery without angina pectoris Code(s): I25.10 - Atherosclerotic heart disease of [place] coronary artery without angina pectoris Status: Acute Assessment and Plan: Stable. No acute issue. Appreciate input from cardiology. Continue home Imdur. (9) Essential hypertension: Code(s): I10 - Essential (primary) hypertension Status: Acute Assessment and Plan: Blood pressure reviewed on 02/26/2020 and stable. Continue to monitor on Imdur and Maxzide. (10) Chronic anemia: Code(s): D64.9 - Anemia, unspecified Status: Acute Assessment and Plan: Hemoglobin remains stable at 10.9 on 02/25/2020. Can follow as outpatient. (11) DVT prophylaxis: Code(s): Z29.9 - Encounter for prophylactic measures, unspecified Status: Acute Assessment and Plan: On home apixaban. Time Spent With Patient Time with patient: 15 - 25 minutes Subjective Date/time seen: 02/26/20 12:49 Interval history: Date of Service: 02/26/2020. Admitted with chest pain, dizziness, UTI. Sitting eating lunch. Feeling better. No dizziness. No abdominal pain. No chest pain or shortness of breath. Review of Systems Review of Systems: Narrative:
[2020-02-26 14:00] VITALS: BP 99/59; PULSE 88; RESP 18; TEMP 36.6; O2SAT 95
--- NOTE | 2020-02-26 20:57 | PM.DS ---
DS: Admitting Diagnosis Admitting Diagnosis Admitting Diagnosis: Urinary tract infection, site not specified DS: Discharge Diagnosis Discharge Diagnosis (1) Urinary tract infection: Qualifiers: Hematuria presence: without hematuria Urinary tract infection type: site unspecified Qualified Code(s): N39.0 - Urinary tract infection, site not specified Code(s): N39.0 - Urinary tract infection, site not specified Status: Acute (2) Dizziness: Code(s): R42 - Dizziness and giddiness Status: Acute (3) Chest discomfort: Code(s): R07.89 - Other chest pain Status: Acute (4) Paroxysmal atrial fibrillation: Code(s): I48.0 - Paroxysmal atrial fibrillation Status: Acute (5) Chronic obstructive pulmonary disease: Qualifiers: COPD type: unspecified COPD Qualified Code(s): J44.9 - Chronic obstructive pulmonary disease, unspecified Code(s): J44.9 - Chronic obstructive pulmonary disease, unspecified Status: Acute (6) Chronic respiratory failure with hypoxia, on home oxygen therapy: Code(s): J96.11 - Chronic respiratory failure with hypoxia; Z99.81 - Dependence on supplemental oxygen Status: Acute (7) Chronic kidney disease, stage 3: Code(s): N18.3 - Chronic kidney disease, stage 3 (moderate) Status: Acute (8) Coronary artery disease: Onset Date: ~05/2016 Qualifiers: Associated angina: without angina Coronary Disease-Associated Artery/Lesion type: [place] artery [place] vs. transplanted heart: [place] heart Qualified Code(s): I25.10 - Atherosclerotic heart disease of [place] coronary artery without angina pectoris Code(s): I25.10 - Atherosclerotic heart disease of [place] coronary artery without angina pectoris Status: Acute (9) Essential hypertension: Code(s): I10 - Essential (primary) hypertension Status: Acute (10) Chronic anemia: Code(s): D64.9 - Anemia, unspecified Status: Acute DS: Summary Hospital Course Reason for hospitalization: Chest and abdominal pain. Hospital Course: Date of Service of Discharge: February 26, 2020. History of Present Illness: Kenan Grubbs is a 79-year-old male with coronary artery disease, paroxysmal atrial fibrillation on long-term anticoagulation, COPD, chronic respiratory failure, chronic kidney disease stage 3, chronic anemia, BPH, and history of bladder cancer who presented to the emergency department with complaint of chest and abdominal pain. He also reported feeling a little lightheaded and dizzy when he got up to go to the bathroom this morning. Symptoms resolved very quickly. Shortly thereafter he developed diffuse upper abdominal/ lower chest pressure completed by nausea. Symptoms lasted for approximately 1 hour at that point. No associated shortness of breath, sweats or chills. No recent fevers. With persistence of symptoms, he presented to the emergency room for further evaluation and treatment. He denied any similar symptoms previously. He also denied indigestion with no history of GERD or ulcers. He does report some mild dysuria. In the emergency room, he was given nitroglycerin with perhaps some improvement. Initial cardiac testing was unremarkable but given his symptoms, he was admitted for further evaluation and treatment. Course in Hospital: He was initially admitted to the IMU with cardiology consultation. Symptoms were felt to be atypical. No acute changes on EKG. No acute changes on telemetry. Troponin levels were negative. Echocardiogram did reveal EF 55-60%, diastolic dysfunction grade 1 and mild pulmonary hypertension. A Lexiscan stress test was performed on the day after admission and normal. No further cardiac evaluation was felt needed. He was continued on flecainide for his known paroxysmal atrial fibrillation remaining in sinus rhythm during his stay. Apixaban was restarted for anticoagulation once results of Le
== END 2020-02-26 16:15 | disposition home or self-care (01) | DRG 690 ==
LOC: ANHED 09:09 → ANHIMU 09:13 → ANH3MEDSUR 02-25 09:49 → ANHIMU 03-01 14:40
PROVIDERS: Physician Assistant; Admitting Provider Internal Medicine; Emergency Provider Emergency Medicine; PCP Family Medicine; Visit Provider Hospitalist
DX: N39.0 Urinary tract infection, site not specified (principal); J96.11 Chronic respiratory failure with hypoxia; I48.0 Paroxysmal atrial fibrillation; J44.9 Chronic obstructive pulmonary disease, unspecified; R42 Dizziness and giddiness; R07.89 Other chest pain; I12.9 Hypertensive chronic kidney disease with stage 1 through stage 4 chronic kidney disease, or unspecified chronic kidney disease; N18.3 Chronic kidney disease, stage 3 (moderate); I25.10 Atherosclerotic heart disease of native coronary artery without angina pectoris; D64.9 Anemia, unspecified; Z99.81 Dependence on supplemental oxygen; Z79.01 Long term (current) use of anticoagulants; N40.0 Benign prostatic hyperplasia without lower urinary tract symptoms; Z85.51 Personal history of malignant neoplasm of bladder; Z86.711 Personal history of pulmonary embolism; E78.5 Hyperlipidemia, unspecified; M19.90 Unspecified osteoarthritis, unspecified site; Z87.891 Personal history of nicotine dependence; Z98.890 Other specified postprocedural states
CPT/HCPCS: 36415; 74177; 78452; 80048; 80053; 81001; 83690; 83735; 84484; 85025; 85027; 85610; 85730; 87077; 87086; 87088; 87186; 93005; 93017; 93306; 94640; 96365; 96375; 96376; 99285; A9270; A9502; G0378; J0131; J0290; J0696; J2270; J2405; J2785; J7040; Q9967

== ENCOUNTER 2020-05-25 13:40 | Outpatient (CLI) | payer MEDICARE, SELFPAY ==
[2020-05-25 14:26] LABS: Creatinine Urine 123.9 mg/dL; Total Protein Urine Random 13 mg/dL
[2020-05-25 14:29] LABS: Albumin Level 3.6 g/dL (3.5-5.1); Anion Gap 5 mmol/L (8-16); Blood Urea Nitrogen 34 mg/dL (9-20); Calcium 8.7 mg/dL (8.4-10.2); Carbon Dioxide 35 mmol/L (22-30); Chloride 99 mmol/L (98-107); Estimated Glomerular Filt Rate 45; Glucose 114 mg/dL (75-110); Phosphorus 3.8 mg/dL (2.5-4.5); Potassium 3.8 mmol/L (3.4-5.0); Sodium 139 mmol/L (137-145)
[2020-05-25 14:34] LABS: Complement C3 113 mg/dL (88-165)
[2020-05-25 15:26] LABS: Vitamin D 25 Hydroxy 69.7 ng/mL
[2020-05-29 19:37] LABS: ANCA Screen Negative (Negative)
[2020-05-30 23:09] LABS: Albumin 3.3 g/dL (3.8-4.8); Alpha 1 Globulin 0.4 g/dL (0.2-0.3); Alpha 2 Globulin 0.7 g/dL (0.5-0.9); Beta 1 Globulin 0.5 g/dL (0.4-0.6); Gamma Globulin 0.7 g/dL (0.8-1.7); Protein, Total 5.8 g/dL (6.1-8.1)
[2020-05-31 21:08] LABS: Creatinine, Random Urine 116 mg/dL (20-320); Total Protein/Creatinine Ratio 103 mg/g creat (22-128)
== END 2020-05-25 13:41 | disposition home or self-care (01) ==
PROVIDERS: PCP Family Medicine; Visit Provider Internal Medicine Nephrology
DX: R80.8 Other proteinuria (principal); I12.9 Hypertensive chronic kidney disease with stage 1 through stage 4 chronic kidney disease, or unspecified chronic kidney disease; N18.3 Chronic kidney disease, stage 3 (moderate)
CPT/HCPCS: 36415; 80069; 82306; 82570; 84155; 84156; 84165; 84166; 86021; 86038; 86160; 86225

== ENCOUNTER 2020-07-10 10:27 | Emergency (ER) | payer MEDICARE, SELFPAY ==
[2020-07-10] VITALS (11 sets, daily range): BP systolic 91–131; BP diastolic 59–83; PULSE 83–114; RESP 20; TEMP 36.8; O2SAT 95–100
--- NOTE | ~2020-07-10 | XR_ITS ---
EXAMINATION: XR chest 2V EXAM DATE: 07/10/2020 10:59 INDICATION: Chest, mid back pain. TECHNIQUE: Frontal and lateral projections of the chest obtained and reviewed. Comparison is made to prior examination from 07/31/2019. FINDINGS: There is moderate chronic hyperinflation. Mild cardiomegaly. Cardiac silhouette is stable i n size compared to prior exam. There is tortuosity of the aorta. There is aortic arteriosclerosis. No confluent consolidation, pneumothorax or pleural effusion suspected. There are bony degenerative rock nges. IMPRESSION: 1. Mild cardiomegaly. Reviewed, dictated and finalized at location A. IMPRESSION: 1. Mild cardiomegaly.
--- NOTE | ~2020-07-10 | CT_ITS ---
EXAMINATION: CTA chest EXAM DATE: 07/10/2020 11:53 INDICATION: History of abdominal aortic aneurysm repair. Neck, back pain. TECHNIQUE: Spiral CT of the chest following intravenous injection of 100 mL Omnipaque 350. Axial, co rene and sagittal images were reviewed. Maximum intensity projection 3-D reconstructions of the aort a were created by the technologist on dedicated workstation. Coronal maximum intensity pixel images of chest reviewed. The dose-length product (DLP) for this examination was 689.05 mGy-cm. The expos ure was tailored according to patient size (auto mA exposure control), and iterative reconstruction ( ASIR) was used as additional dose reduction technique. Comparison is made to prior examination from . FINDINGS: There are no central pulmonary emboli. Mild to moderate scattered thoracic aortic calcifie d and noncalcified plaques. The thoracic aortic contour is mildly ectatic, with mild aneurysmal dilat ion of the aortic arch up to 4.2 cm. There is no thoracic aortic, subclavian or carotid dissection. T he left vertebral artery is dominant. There is moderate emphysema. There are several right upper lobe nodules measuring up to 5 mm, with th e anterior one on image 89 new compared to previous study. Previously described 4 mm pleural-based no dule is stable, granuloma. There is scattered bibasilar subsegmental atelectasis. No acute airspace d isease. There are no pleural or pericardial effusions. Tracheobronchial tree is patent. There is no mediastinal, hilar or axillary lymphadenopathy. There is no pneumothorax. Mild cardiomegaly. There is mild coronary arterial calcification, arterial sclerosis. There are cholecystectomy clips. Renal lesions, imaged portions consistent with cysts. Several old left rib fractures. IMPRESSION: 1. Recommend 6 month follow-up CT chest for a new right upper lobe nodule. 2. Scattered subsegmental atelectasis at the lung bases. 3. Mildly aneurysmal aortic arch at 4.2 cm, without dissection. 4. Scattered atherosclerotic and arterial sclerotic disease. 5. Moderate emphysema. Reviewed, dictated and finalized at location A.
--- NOTE | 2020-07-10 10:35 | ECG_ITS ---
Measurements Intervals [place] Rate: 98 P: -1 NV: 218 QRS: -59 QRSD: 178 T: 41 QT: 394 QTc: 504 Interpretive Statements SINUS RHYTHM WITH FIRST DEGREE AV BLOCK RIGHT BUNDLE BRANCH BLOCK LEFT ANTERIOR FASCICULAR BLOCK BASELINE WANDER- I, II, III ABNORMAL ECG Electronically Signed On 07-10-2020 16:51:07 CDT by Rob Pierre D.O.
[2020-07-10 11:10] LABS: Basophils Percent Auto 0.3 % (0.2-1.2); Eosinophils Absolute Auto 0.1 K/mm3 (0-0.3); Eosinophils Percent Auto 1.8 % (0-4.4); Hematocrit 35.7 % (42.0-52.0); Hemoglobin 11.5 g/dL (14.0-18.0); Immature Granulocyte Absolute 0.02 K/mm3 (0.00-0.031); Immature Granulocyte Percent A 0.3 % (0-0.5); Lymphocytes Absolute Auto 0.71 K/mm3 (0.9-3.2); Lymphocytes Percent Auto 11.8 % (18.3-44.2); Mean Corpuscular HGB Conc 32.2 g/dl (32-36); Mean Corpuscular Hemoglobin 29.9 pg (26-34); Mean Corpuscular Volume 92.7 fl (80-100); Mean Platelet Volume 10.2 fl (7.4-10.4); Monocytes Absolute Auto 0.5 K/mm3 (0.1-0.6); Monocytes Percent Auto 8.4 % (2.6-8.5); Neutrophils Absolute Auto 4.7 K/mm3 (1.3-6.7); Neutrophils Percent Auto 77.4 % (45.5-73.1); Platelet Count Result 144 k/mm3 (150-375); Red Blood Count 3.85 M/mm3 (4.6-6.20); Red Cell Distribution Width 13.7 % (11.5-14.5)
[2020-07-10] MEDS: SODIUM CHLORIDE 0.9% IV 500 ML 999 ML IV CONT (11:15)
[2020-07-10 11:20] LABS: INR 1.1; Prothrombin Time 14.3 Seconds (11.1-14.7)
[2020-07-10 11:21] LABS: Partial Thromboplastin Time 30.3 SECONDS (22.3-36.8)
--- NOTE | 2020-07-10 11:25 | ED.GENADULT ---
HPI - General Adult General Chief complaint: Dizziness Stated complaint: back pain/dizzy Time Seen by Provider: 07/10/20 10:39 History of Present Illness HPI narrative: Patient is a 79-year-old male who presents to the ER with concerns for neck and back pain. Patient was sitting at the table drinking coffee when he suddenly developed discomfort in his neck and in his back reports was very severe. It since subsided but still persists. No nausea or vomiting. Denies any chest pain or pressure. Patient has chronic shortness of breath due to COPD that requires 2 L of oxygen chronically. Patient is also known to have CKD. Blood pressure normal at this time. Family present and helping give history as he is a poor historian. Patient denies choking on anything while eating. Related Data Home Medications Medication Instructions Recorded Confirmed Combivent Respimat 1 puff INHALATION QID 10/27/19 02/23/20 alfuzosin 10 mg PO DAILY 10/27/19 02/23/20 budesonide-formoterol [Symbicort] 2 puff INHALATION BID 10/27/19 02/23/20 flecainide 100 mg PO BID 10/27/19 02/23/20 fluticasone propionate 1 spray INTRANASAL BID PRN 10/27/19 02/23/20 isosorbide mononitrate 30 mg PO DAILY 10/27/19 02/23/20 montelukast 10 mg PO DAILY 10/27/19 02/23/20 triamterene-hydrochlorothiazid 1 cap PO DAILY 10/27/19 02/23/20 Eliquis 2.5 mg PO BID 02/23/20 02/23/20 Flintstones Complete 1 tablet PO DAILY 02/23/20 02/23/20 Perdiem Overnight Relief 30 mg PO DAILY 02/23/20 02/23/20 aspirin 81 mg PO DAILY 02/23/20 02/23/20 cholecalciferol (vitamin D3) 125 mcg PO DAILY 02/23/20 02/23/20 [Vitamin D3] nitroglycerin 0.4 mg SUBLINGUAL DIRECTED PRN 02/23/20 02/23/20 polyethylene glycol 3350 [Miralax] 17 g PO DAILY 02/23/20 02/23/20 potassium chloride 20 meq PO DAILY 02/23/20 02/23/20 Allergies Allergy/AdvReac Type Severity Reaction Status Date / Time tetanus and diphtheria Allergy Severe FEVER, Verified 07/10/20 10:34 toxoids CHILLS clindamycin Allergy Unknown RASH Verified 07/10/20 10:34 amiodarone AdvReac Severe liver Verified 07/10/20 10:34 toxicity Review of Systems Review of Systems: All systems reviewed & are unremarkable except as noted in HPI and below Constitutional: Constitutional: Denies chills, Denies fever(s) and Denies weakness ENT: Denies dysphagia, Denies nasal congestion and Denies sore throat Cardiovascular: Cardiovascular: Denies chest pain, Denies rapid heart rate and Reports radiating jaw, neck or arm pain Respiratory: Respiratory: Denies cough, Denies dyspnea and Denies wheezing Gastrointestinal: Gastrointestinal: Denies abdominal pain, Denies nausea and Denies vomiting Musculoskeletal: Musculoskeletal: Reports back pain, Denies arthralgias and Denies muscle cramps Neurologic: Denies dizziness, Denies focal weakness and Denies numbness [facility] Past Medical History Medical History (Updated 07/10/20 @ 15:14 by Sriram Childress MD) Atrial flutter with rapid ventricular response (~03/2017) Status post DC cardioversion. Benign prostatic hyperplasia Bladder cancer (~06/2019) Noninvasive low-grade papillary urothelial carcinoma. Bowel obstruction Chronic anemia Chronic kidney disease, stage 3 Baseline creatinine ranges between 1.3 and 1.50. Chronic obstructive pulmonary disease Chronic respiratory failure with hypoxia, on home oxygen therapy Compression fracture Chronic compression fractures in the low thoracic and lumbar spine. Coronary artery disease (~05/2016) Cardiac catheterization per Dr. Bills showed a 99% mid RCA lesion with unsuccessful PTCA as lesion was unable to be crossed. Depression with anxiety Essential hypertension Hyperlipidemia Osteoarthritis Paroxysmal atrial fibrillation Pneumonia Pulmonary embolism Tremor Surgical History Surgical History (Updated 02/23/20 @ 22:40 by Josephine Alejandro PA-C) History of abdominal aortic aneurysm repair (~2003) History of cardiac cath History of cataract extracti
[2020-07-10 11:26] LABS: Anion Gap 6 mmol/L (8-16); Blood Urea Nitrogen 28 mg/dL (9-20); Calcium 9.1 mg/dL (8.4-10.2); Carbon Dioxide 38 mmol/L (22-30); Chloride 97 mmol/L (98-107); Estimated Glomerular Filt Rate 45; Glucose 93 mg/dL (75-110); Potassium 3.6 mmol/L (3.4-5.0); Sodium 141 mmol/L (137-145)
[2020-07-10 11:37] LABS: Troponin I < 0.012 ng/mL (0.000-0.034)
[2020-07-10 14:27] LABS: Troponin I < 0.012 ng/mL (0.000-0.034)
[2020-07-10] MEDS: BELLADONNA ALK/PHENOB ELIX 10 ML, MAG HYDROX/ALUMINUM HYD/SIMETH 30 ML, LIDOCAINE HCL 2... PO (14:56)
== END 2020-07-10 15:30 | disposition home or self-care (01) ==
PROVIDERS: Emergency Provider Emergency Medicine; PCP Family Medicine
DX: E86.0 Dehydration (principal); K21.9 Gastro-esophageal reflux disease without esophagitis; J43.9 Emphysema, unspecified; Z99.81 Dependence on supplemental oxygen; I12.9 Hypertensive chronic kidney disease with stage 1 through stage 4 chronic kidney disease, or unspecified chronic kidney disease; N18.30 Chronic kidney disease, stage 3 unspecified; N40.0 Benign prostatic hyperplasia without lower urinary tract symptoms; Z85.51 Personal history of malignant neoplasm of bladder; D63.1 Anemia in chronic kidney disease; J96.11 Chronic respiratory failure with hypoxia; I25.10 Atherosclerotic heart disease of native coronary artery without angina pectoris; E78.5 Hyperlipidemia, unspecified; M19.90 Unspecified osteoarthritis, unspecified site; I48.0 Paroxysmal atrial fibrillation; Z86.711 Personal history of pulmonary embolism; Z79.01 Long term (current) use of anticoagulants; Z79.82 Long term (current) use of aspirin; Z98.49 Cataract extraction status, unspecified eye; Z87.891 Personal history of nicotine dependence; I51.7 Cardiomegaly; I44.0 Atrioventricular block, first degree; I45.2 Bifascicular block; R91.1 Solitary pulmonary nodule; I71.2 Thoracic aortic aneurysm, without rupture
CPT/HCPCS: 36415; 71046; 71275; 80048; 84484; 85025; 85610; 85730; 93005; 96360; 99284; A9270; J7040; Q9967

== ENCOUNTER 2020-10-08 08:48 | Observation (INO) | payer MEDICARE, SELFPAY ==
[2020-10-08] VITALS (23 sets, daily range): BP systolic 80–180; BP diastolic 50–97; PULSE 60–150; RESP 16–23; TEMP 36.1–36.3; O2SAT 91–100; BMI 30.9
--- NOTE | 2020-10-08 08:56 | ECG_ITS ---
Measurements Intervals [place] Rate: 149 P: [place]: 0 QRS: -72 QRSD: 174 T: 81 QT: 327 QTc: 516 Interpretive Statements ATRIAL FLUTTER/TACHYCARDIA WITH RAPID VENTRICULAR RESPONSE RIGHT BUNDLE BRANCH BLOCK LEFT ANTERIOR FASCICULAR BLOCK ABNORMAL ECG Electronically Signed On 10-08-2020 9:00:49 INVASIVE CARDIOLOGIST by Rob Pierre D.O.
--- NOTE | 2020-10-08 08:59 | ED.CHESTPAIN ---
HPI - Chest Pain General Chief Complaint: Chest Pain Stated Complaint: CP History of Present Illness HPI narrative: 79 yo male with h/o CHF, a-fib, COPD on home oxygen brought in by EMS from home for chest pain. Substernal chest pain since early this morning. Radiates into the neck. Associated with feeling like he can't get any oxygen, but not short of breath. He says that he has never had this pain before. Noted to have rapid heart beat by EMS. took home nitro glycerine and given one spray of nitro glycerine by EMS. Related Data Home Medications Medication Instructions Recorded Confirmed Combivent Respimat 1 puff INHALATION QID 10/27/19 10/08/20 alfuzosin 10 mg PO DAILY 10/27/19 10/08/20 budesonide-formoterol [Symbicort] 2 puff INHALATION BID 10/27/19 10/08/20 flecainide 100 mg PO BID 10/27/19 10/08/20 fluticasone propionate 1 spray INTRANASAL DAILY PRN 10/27/19 10/08/20 isosorbide mononitrate 30 mg PO DAILY 10/27/19 10/08/20 montelukast 10 mg PO DAILY 10/27/19 10/08/20 triamterene-hydrochlorothiazid 1 cap PO DAILY 10/27/19 10/08/20 Eliquis 2.5 mg PO BID 02/23/20 10/08/20 Perdiem Overnight Relief 30 mg PO DAILY 02/23/20 10/08/20 aspirin 81 mg PO DAILY 02/23/20 10/08/20 cholecalciferol (vitamin D3) 125 mcg PO DAILY 02/23/20 10/08/20 [Vitamin D3] nitroglycerin 0.4 mg SUBLINGUAL DIRECTED PRN 02/23/20 10/08/20 polyethylene glycol 3350 [Miralax] 17 g PO DAILY 02/23/20 10/08/20 potassium chloride 20 meq PO DAILY 02/23/20 10/08/20 Allergies Allergy/AdvReac Type Severity Reaction Status Date / Time tetanus and diphtheria Allergy Severe FEVER, Verified 10/08/20 09:03 toxoids CHILLS clindamycin Allergy Unknown RASH Verified 10/08/20 09:03 amiodarone AdvReac Severe liver Verified 10/08/20 09:03 toxicity [facility] Past Medical History Medical History (Updated 10/08/20 @ 17:44 by Philip Ramirez MD) Atrial flutter with rapid ventricular response (~03/2017) Status post DC cardioversion. Benign prostatic hyperplasia Bladder cancer (~06/2019) Noninvasive low-grade papillary urothelial carcinoma. Bowel obstruction Chronic anemia Chronic kidney disease, stage 3 Baseline creatinine ranges between 1.3 and 1.50. Chronic obstructive pulmonary disease Chronic respiratory failure with hypoxia, on home oxygen therapy Compression fracture Chronic compression fractures in the low thoracic and lumbar spine. Coronary artery disease (~05/2016) Cardiac catheterization per Dr. Bills showed a 99% mid RCA lesion with unsuccessful PTCA as lesion was unable to be crossed. Depression with anxiety Essential hypertension Hyperlipidemia Osteoarthritis Paroxysmal atrial fibrillation Pneumonia Pulmonary embolism Tremor Surgical History Surgical History (Updated 02/23/20 @ 22:40 by Josephine Alejandro PA-C) History of abdominal aortic aneurysm repair (~2003) History of cardiac cath History of cataract extraction History of cholecystectomy History of inguinal hernia repair Status post surgical removal and fulguration of bladder neoplasm (~06/2019) Family History Family History Mother Acute myocardial infarction Father Aortic aneurysm Sibling Aortic aneurysm Social History Social History (Updated 02/23/20 @ 22:42 by Josephine Alejandro PA-C) Social History: The patient lives in [place]. He is . His daughter lives at home with him. 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 He was a heavy smoker, up to 2 packs of cigarettes per day for 45 years, and he ultimately quit in 1999. He denies alcohol and drug abuse. He designates his daughter, Brandy Watt, as his surrogate decision maker and he wishes to be a full code. Smoking status: Former smoker Additional living arrangements comments: Lives at home with daughter Gender identity (if verbalized by the patient): Male Spiritual care concerns: No Exam Const: General: no acute distress, estrella
[2020-10-08] MEDS: SODIUM CHLORIDE 0.9% IV 500 ML 999 ML IV CONT (09:14)
[2020-10-08 09:21] LABS: Basophils Percent Auto 0.5 % (0.2-1.2); Eosinophils Absolute Auto 0.2 K/mm3 (0-0.3); Eosinophils Percent Auto 3.1 % (0-4.4); Hematocrit 35.6 % (42.0-52.0); Hemoglobin 11.3 g/dL (14.0-18.0); Immature Granulocyte Absolute 0.01 K/mm3 (0.00-0.031); Immature Granulocyte Percent A 0.2 % (0-0.5); Lymphocytes Absolute Auto 0.95 K/mm3 (0.9-3.2); Lymphocytes Percent Auto 15.5 % (18.3-44.2); Mean Corpuscular HGB Conc 31.7 g/dl (32-36); Mean Corpuscular Hemoglobin 29.7 pg (26-34); Mean Corpuscular Volume 93.7 fl (80-100); Mean Platelet Volume 9.4 fl (7.4-10.4); Monocytes Absolute Auto 0.6 K/mm3 (0.1-0.6); Monocytes Percent Auto 9.2 % (2.6-8.5); Neutrophils Absolute Auto 4.4 K/mm3 (1.3-6.7); Neutrophils Percent Auto 71.5 % (45.5-73.1); Platelet Count Result 149 k/mm3 (150-375); Red Cell Distribution Width 13.5 % (11.5-14.5); White Blood Count 6.1 K/mm3 (4.5-10.0)
[2020-10-08] MEDS: KETAMINE HCL (*CRX) 500 MG/10 ML VIAL (09:28)
--- NOTE | 2020-10-08 09:30 | ECG_ITS ---
Measurements Intervals [place] Rate: 94 P: 11 MT: 233 QRS: -47 QRSD: 181 T: 120 QT: 380 QTc: 477 Interpretive Statements SINUS RHYTHM WITH FIRST DEGREE AV BLOCK RIGHT BUNDLE BRANCH BLOCK LEFT ANTERIOR FASCICULAR BLOCK BASELINE ARTIFACT- V5 ABNORMAL ECG Electronically Signed On 10-11-2020 10:59:59 WIRE STRIPPER by Rob Pierre D.O.
--- NOTE | 2020-10-08 09:30 | PC.NURSE ---
DR PERKINS AT BEDSIDE. DISCUSSED SYNCHRONIZED CARDIOVERSION WITH PT AND DAUGHTER. 0928 100 MG KETAMINE GIVEN IVP. SYNCHRONIZED CARDIOVERSION PERFORMED BY DR PERKINS AT 0930. PT TOLERATED WELL. REPEAT EKG GIVEN TO DR PERKINS.
[2020-10-08 09:31] LABS: Prothrombin Time 13.9 Seconds (11.1-14.7)
[2020-10-08 09:32] LABS: Partial Thromboplastin Time 27.1 SECONDS (22.3-36.8)
[2020-10-08 09:34] LABS: Anion Gap 2 mmol/L (8-16); Blood Urea Nitrogen 25 mg/dL (9-20); Calcium 8.8 mg/dL (8.4-10.2); Carbon Dioxide 39 mmol/L (22-30); Chloride 98 mmol/L (98-107); Estimated CRCL calculation 48 ml/min; Estimated Glomerular Filt Rate 53; Glucose 120 mg/dL (75-110); Potassium 3.4 mmol/L (3.4-5.0); Sodium 139 mmol/L (137-145)
[2020-10-08 09:46] LABS: NT Pro B Type Natriuretic Pept 485 PG/ML (5-100); Troponin I < 0.012 ng/mL (0.000-0.034)
[2020-10-08] MEDS: FLECAINIDE ACETATE 100 MG TABLET PO ×2 (10:19→20:33)
--- NOTE | 2020-10-08 12:34 | ADMGEN ---
This patient, Kenan Grubbs, was admitted to IMU Room 201-01. Patient/family oriented to hospital policies and general routines including ID bracelet, bed and alarms, visiting hours, pain management, procedures, bathroom and other care routines, personal items, smoking policy, room service/diet, and visiting hours. Information on how to activate the Rapid Response Team has been discussed. Patient/Family are encouraged to report perceived risks to care and to ask questions if they do not understand what they are told or what they should do.
--- NOTE | 2020-10-08 13:39 | PM.IMHP ---
H&P: HPI History of Present Illness Date/Time: 10/08/20 13:39 Chief Complaint: chest pain Narrative: Date of visit 10/08/2020 1245 Kenan Grubbs is a 79 year old male with history of atrial fib flutter who states that the a.m. after awakening . while sitting drinking his coffee heart seen to raise and had a tight sensation in his throat and chest. With symptoms persisting he came to the emergency room was found to be hypotensive and in atrial flutter with ventricular rate of 140, was given a liter of fluid and electrically cardioverted to sinus rhythm. He took a nitroglycerin at home and was given nitroglycerin spray on route. He did have a cardioversion in 2016 for atrial flutter . Also cardiac catheterization in 2015 revealed a subtotal RCA which could not be opened. He did have a negative Lexiscan stress test 02/23 with no ischemia and normal ejection fraction Review of Systems Review of Systems: Narrative: Constitutional weight is steady appetite good Eyes no double vision scotoma Mouth no pharyngitis laryngitis Pulmonary no increased shortness of breath , home O2 for probably 20 years CV has per present illness no pedal edema GI no melena hematochezia diarrhea no dysuria no hematuria Muscle skeletal no particular joint discomfort Integument no skin breakdown rashes Neuro no seizures no syncope [facility] Past Medical History Medical History (Updated 10/08/20 @ 13:55 by William Teixeira MD) Atrial flutter with rapid ventricular response (~03/2017) Status post DC cardioversion. Benign prostatic hyperplasia Bladder cancer (~06/2019) Noninvasive low-grade papillary urothelial carcinoma. Bowel obstruction Chronic anemia Chronic kidney disease, stage 3 Baseline creatinine ranges between 1.3 and 1.50. Chronic obstructive pulmonary disease Chronic respiratory failure with hypoxia, on home oxygen therapy Compression fracture Chronic compression fractures in the low thoracic and lumbar spine. Coronary artery disease (~05/2016) Cardiac catheterization per Dr. Bills showed a 99% mid RCA lesion with unsuccessful PTCA as lesion was unable to be crossed. Depression with anxiety Essential hypertension Hyperlipidemia Osteoarthritis Paroxysmal atrial fibrillation Pneumonia Pulmonary embolism Tremor Surgical History Surgical History (Updated 02/23/20 @ 22:40 by Josephine Alejandro PA-C) History of abdominal aortic aneurysm repair (~2003) History of cardiac cath History of cataract extraction History of cholecystectomy History of inguinal hernia repair Status post surgical removal and fulguration of bladder neoplasm (~06/2019) Family History Family History Mother Acute myocardial infarction Father Aortic aneurysm Sibling Aortic aneurysm Social History Social History (Updated 02/23/20 @ 22:42 by Josephine Alejandro PA-C) Social History: The patient lives in [place]. He is . His daughter lives at home with him. 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 He was a heavy smoker, up to 2 packs of cigarettes per day for 45 years, and he ultimately quit in 1999. He denies alcohol and drug abuse. He designates his daughter, Brandy Watt, as his surrogate decision maker and he wishes to be a full code. Smoking status: Former smoker Additional living arrangements comments: Lives at home with daughter Gender identity (if verbalized by the patient): Male Spiritual care concerns: No Meds Home Medications and Allergies Home Medications Medication Instructions Recorded Confirmed Type Combivent Respimat 1 puff INHALATION QID 10/27/19 02/23/20 History alfuzosin 10 mg PO DAILY 10/27/19 02/23/20 History budesonide-formoterol [Symbicort] 2 puff INHALATION BID 10/27/19 02/23/20 History flecainide 100 mg PO BID 10/27/19 02/23/20 History fluticasone propionate 1 spray INTRANASAL BID PRN 10/27/19 02/23/20 History isosorbide mononitrate 30 mg
--- NOTE | 2020-10-08 14:13 | ECG_ITS ---
Measurements Intervals [place] Rate: 83 P: 52 DE: 257 QRS: -52 QRSD: 172 T: 26 QT: 432 QTc: 509 Interpretive Statements SINUS RHYTHM WITH FIRST DEGREE AV BLOCK RIGHT BUNDLE BRANCH BLOCK LEFT ANTERIOR FASCICULAR BLOCK ABNORMAL ECG Electronically Signed On 10-08-2020 17:53:31 [employer] by Rob Pierre D.O.
[2020-10-08 14:40] LABS: Troponin I 0.035 ng/mL (0.000-0.034)
[2020-10-08] MEDS: polyethylene glycoL 3350 17 GM POWD.PACK PO (16:16)
[2020-10-08] MEDS: METOPROLOL TARTRATE 12.5 MG TABLET PO (16:17)
[2020-10-08] MEDS: ISOSORBIDE MONONITRATE 30 MG TAB.ER.24H PO (16:18)
[2020-10-08] MEDS: MONTELUKAST SODIUM 10 MG TABLET PO ×2 (16:19→20:35)
[2020-10-08] MEDS: ASPIRIN 81 MG CHEWABLE TABLET PO (16:22)
[2020-10-08] MEDS: ALBUTEROL SULFATE NEB 2.5 MG/0.5 ML INH 5 MG INHALATION (18:24)
[2020-10-08] MEDS: IPRATROPIUM BR 0.02% INH SOLN 0.5 MG/2.5 ML VIAL INHALATION (18:24)
[2020-10-08] MEDS: APIXABAN 2.5 MG TABLET PO (20:33)
[2020-10-08] MEDS: METOPROLOL TARTRATE 25 MG TABLET PO (20:34)
[2020-10-08] MEDS: SENNOSIDES 8.6 MG TABLET 25.8 MG PO (20:38)
[2020-10-09] VITALS (16 sets, daily range): BP systolic 116–125; BP diastolic 62–68; PULSE 68–79; RESP 16–20; TEMP 35.7–36.4; O2SAT 95–97
[2020-10-09] MEDS: IPRATROPIUM BR 0.02% INH SOLN 0.5 MG/2.5 ML VIAL INHALATION ×3 (00:05→13:29)
[2020-10-09] MEDS: ALBUTEROL SULFATE NEB 2.5 MG/0.5 ML INH 5 MG INHALATION ×3 (00:05→13:29)
[2020-10-09 04:44] LABS: Anion Gap 0 mmol/L (8-16); Blood Urea Nitrogen 29 mg/dL (9-20); Calcium 8.1 mg/dL (8.4-10.2); Carbon Dioxide 39 mmol/L (22-30); Chloride 100 mmol/L (98-107); Estimated CRCL calculation 48 ml/min; Estimated Glomerular Filt Rate 53; Glucose 90 mg/dL (75-110); Potassium 3.6 mmol/L (3.4-5.0); Sodium 139 mmol/L (137-145)
[2020-10-09 08:06] LABS: Troponin I 0.015 ng/mL (0.000-0.034)
[2020-10-09] MEDS: FLECAINIDE ACETATE 100 MG TABLET PO (08:13)
[2020-10-09] MEDS: CHOLECALCIFEROL 1,000 UNITS TABLET 5000 UNITS PO (08:13)
[2020-10-09] MEDS: METOPROLOL TARTRATE 25 MG TABLET PO (08:13)
[2020-10-09] MEDS: APIXABAN 2.5 MG TABLET PO (08:13)
[2020-10-09] MEDS: ISOSORBIDE MONONITRATE 30 MG TAB.ER.24H PO (08:13)
[2020-10-09] MEDS: polyethylene glycoL 3350 17 GM POWD.PACK PO (08:13)
[2020-10-09] MEDS: ASPIRIN 81 MG CHEWABLE TABLET PO (08:17)
--- NOTE | 2020-10-09 18:05 | PM.DS ---
DS: Admitting Diagnosis Admitting Diagnosis Admitting Diagnosis: Chest pain with atrial flutter and rapid ventricular response DS: Discharge Diagnosis Discharge Diagnosis (1) Atrial flutter with rapid ventricular response: Onset Date: ~03/2017 Code(s): I48.92 - Unspecified atrial flutter Status: Acute Assessment and Plan: Patient was hypotensive with systolic pressure of 80 complaining of chest discomfort and was electrically cardioverted in the ER. He is on chronic anticoagulation. Pressure reverted back to normal after cardioversion. Continued his flecainide and discussed with cardiology and added low dose betablocker Toprol XL 25 HS Troponin normal day of discharge and post cardioversion EKG no ischemic changes (2) Essential hypertension: Code(s): I10 - Essential (primary) hypertension Status: Acute Assessment and Plan: Blood pressure adequate at this time after adding low dose betablocker Systolic BP 124 (3) Coronary artery disease: Onset Date: ~05/2016 Qualifiers: Associated angina: without angina Coronary Disease-Associated Artery/Lesion type: [place] artery [place] vs. transplanted heart: [place] heart Qualified Code(s): I25.10 - Atherosclerotic heart disease of [place] coronary artery without angina pectoris Code(s): I25.10 - Atherosclerotic heart disease of [place] coronary artery without angina pectoris Status: Acute Assessment and Plan: Status post catheterization 2015 with subtotal RCA and negative Lexiscan stress test 02/23 Continue aspirin added beta gracie (4) Chronic respiratory failure with hypoxia, on home oxygen therapy: Code(s): J96.11 - Chronic respiratory failure with hypoxia; Z99.81 - Dependence on supplemental oxygen Status: Acute Assessment and Plan: Continue home to and inhalers (5) Chronic kidney disease, stage 3: Code(s): N18.3 - Chronic kidney disease, stage 3 (moderate) Status: Acute Assessment and Plan: creatinine stable and unchanged 1.3 at discharge DS: Summary Hospital Course Hospital Course: Date of discharge 10/09/2020, date of visit 10/09/2020 79-year-old white male with history of paroxysmal atrial flutter and fibrillation with COPD on home O2 developed tightness in his throat chest discomfort while sitting drinking coffee in the a.m.. Brought to the emergency room after receiving nitroglycerin in the field and here he was slightly hypotensive with rapid ventricular response complaining of chest discomfort so he was electrically cardioverted to sinus rhythm after sedation. Post cardioversion EKG no ischemic changes and he had no further symptoms. Low-dose beta-gracie was added to his regime and he maintained sinus rhythm the next 24 hours. 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 Bills within the next 3-4 weeks Time Spent with Patient Time attestation: Total time spent providing and/or coordinating discharge services: 35 minutes Exam Narrative: Exam Narrative: Condition on discharge Blood pressure 124/66 pulse is 70 and regular saturating 95% on 2 have L nasal cannula Lungs clear prolonged expiratory phase no wheezing or consolidation CV regular rate rhythm Abdomen soft nontender no masses Extremities without edema right leg slightly more prominent than left which is chronic He was up about feeling well with no shortness of breath or chest discomfort and able to be discharged home in stable condition DS: Data Data Completed and Pending Labs on day of discharge: Labs from last 24 hours 10/09/20 10/09/20 10/09/20 04:07 04:07 04:03 Sodium 139 Potassium 3.6 Chloride 100 Carbon Dioxide 39 H Anion Gap 0 L BUN 29 H Creatinine 1.30 Estim Creat Clear Calc 48 Estimated GFR 53 L Glucose 90 Calcium 8.1 L Troponin I 0.015 TSH (Reflex) 1.800 Discharge Plan Discharge Attending
== END 2020-10-09 14:00 | disposition home or self-care (01) ==
LOC: ANHED 09:12 → ANHIMU 13:34
PROVIDERS: Admitting Provider Internal Medicine; Emergency Provider Emergency Medicine; PCP Family Medicine; Visit Provider Internal Medicine
DX: I48.92 Unspecified atrial flutter (principal); R07.9 Chest pain, unspecified; I13.0 Hypertensive heart and chronic kidney disease with heart failure and stage 1 through stage 4 chronic kidney disease, or unspecified chronic kidney disease; I50.9 Heart failure, unspecified; J44.9 Chronic obstructive pulmonary disease, unspecified; N18.30 Chronic kidney disease, stage 3 unspecified; N40.0 Benign prostatic hyperplasia without lower urinary tract symptoms; J96.11 Chronic respiratory failure with hypoxia; Z99.81 Dependence on supplemental oxygen; I25.10 Atherosclerotic heart disease of native coronary artery without angina pectoris; F41.8 Other specified anxiety disorders; E78.5 Hyperlipidemia, unspecified; Z86.711 Personal history of pulmonary embolism; Z79.01 Long term (current) use of anticoagulants; Z85.51 Personal history of malignant neoplasm of bladder
CPT/HCPCS: 36415; 80048; 83880; 84443; 84484; 85025; 85610; 85730; 92960; 93005; 94640; 99285; A9270; G0378; J7040

== ENCOUNTER 2020-10-27 14:21 | Outpatient (CLI) | payer MEDICARE, SELFPAY ==
[2020-10-27 15:10] LABS: Creatinine Urine 128.9 mg/dL; Total Protein Urine Random 15 mg/dL; Ur Ttl Prot Creatinine Ratio 0.12 mg/mg (0-0.20)
[2020-10-27 15:12] LABS: Albumin Level 3.3 g/dL (3.5-5.1); Blood Urea Nitrogen 41 mg/dL (9-20); Calcium 8.8 mg/dL (8.4-10.2); Carbon Dioxide > 40 mmol/L (22-30); Chloride 99 mmol/L (98-107); Estimated Glomerular Filt Rate 45; Glucose 143 mg/dL (75-110); Potassium 3.9 mmol/L (3.4-5.0); Sodium 139 mmol/L (137-145)
[2020-10-27 15:27] LABS: Parathyroid Intact 17.6 pg/mL (7.5-53.5)
[2020-10-27 16:05] LABS: Vitamin D 25 Hydroxy 64.5 ng/mL
== END 2020-10-27 14:22 | disposition home or self-care (01) ==
LOC: ANHLAB 14:26
PROVIDERS: PCP Family Medicine; Visit Provider Internal Medicine Nephrology
DX: N18.30 Chronic kidney disease, stage 3 unspecified (principal); I12.9 Hypertensive chronic kidney disease with stage 1 through stage 4 chronic kidney disease, or unspecified chronic kidney disease; R80.8 Other proteinuria
CPT/HCPCS: 36415; 80069; 82306; 82570; 83970; 84156

== ENCOUNTER 2020-12-22 07:23 | Emergency (ER) | payer MEDICARE, SELFPAY ==
[2020-12-22] VITALS (13 sets, daily range): BP systolic 113–156; BP diastolic 46–83; PULSE 71–85; RESP 14–20; TEMP 36.8; O2SAT 95–100
--- NOTE | ~2020-12-22 | CT_ITS ---
EXAMINATION: CT brain wo con DATE: 12/22/2020 07:55 INDICATION: Head injury. TECHNIQUE: Computed tomography (CT) of the head was performed without intravenous contrast. The mA wa s adjusted according to patient size. Iterative reconstruction technique was employed. The dose-lengt h product was 605.33 mGy-cm. COMPARISON: Head CT 10/27/2019 FINDINGS: There is no intracranial hemorrhage, acute infarction, or abnormal intracranial mass lesion . The ventricles are normal in size. There is mild mucosal thickening in the paranasal sinuses. There are likely changes of right ocular lens replacement surgery. There is a left mastoid effusion. IMPRESSION: 1. Normal brain. Reviewed, dictated and finalized at location A. IMPRESSION: 1. Normal brain.
--- NOTE | 2020-12-22 08:25 | ED.HEATRA ---
HPI - Head Injury General Chief complaint: Head Injury Stated complaint: ABRASION Time Seen by Provider: 12/22/20 07:24 History of Present Illness HPI Narrative: Patient is an 80-year-old male who presents ER after falling and striking his head. Patient had gotten out of bed to use the restroom was making a turn when he fell and struck his head on the wall. Denies losing consciousness. Unsure why he fell, reports he kind of blacked out. Denies dizziness/headache/change in vision/change in hearing. Patient does take Eliquis so he is concerned about potential head bleed. After hitting the wall he sloughed off a known skin lesion on the top of his head and started bleeding. Patient has a Parkinson's-like tremor in his upper extremities and is chronically O2 dependent. No change in these issues. Related Data Home Medications Medication Instructions Recorded Confirmed Combivent Respimat 1 puff INHALATION QID 10/27/19 10/08/20 alfuzosin 10 mg PO DAILY 10/27/19 10/08/20 budesonide-formoterol [Symbicort] 2 puff INHALATION BID 10/27/19 10/08/20 flecainide 100 mg PO BID 10/27/19 10/08/20 fluticasone propionate 1 spray INTRANASAL DAILY PRN 10/27/19 10/08/20 isosorbide mononitrate 30 mg PO DAILY 10/27/19 10/08/20 montelukast 10 mg PO DAILY 10/27/19 10/08/20 triamterene-hydrochlorothiazid 1 cap PO DAILY 10/27/19 10/08/20 Eliquis 2.5 mg PO BID 02/23/20 10/08/20 Perdiem Overnight Relief 30 mg PO DAILY 02/23/20 10/08/20 aspirin 81 mg PO DAILY 02/23/20 10/08/20 cholecalciferol (vitamin D3) 125 mcg PO DAILY 02/23/20 10/08/20 [Vitamin D3] nitroglycerin 0.4 mg SUBLINGUAL DIRECTED PRN 02/23/20 10/08/20 polyethylene glycol 3350 [Miralax] 17 g PO DAILY 02/23/20 10/08/20 potassium chloride 20 meq PO DAILY 02/23/20 10/08/20 Allergies Allergy/AdvReac Type Severity Reaction Status Date / Time tetanus and diphtheria Allergy Severe FEVER, Verified 12/22/20 07:30 toxoids CHILLS clindamycin Allergy Unknown RASH Verified 12/22/20 07:30 amiodarone AdvReac Severe liver Verified 12/22/20 07:30 toxicity Review of Systems Review of Systems: All systems reviewed & are unremarkable except as noted in HPI and below Constitutional: Constitutional: Denies chills, Denies fever(s) and Denies weakness Eyes: Eyes: Denies change in vision and Denies photophobia ENT: Denies dizziness, Denies nasal congestion and Denies sore throat Cardiovascular: Cardiovascular: Denies chest pain, Denies rapid heart rate and Denies radiating jaw, neck or arm pain Gastrointestinal: Gastrointestinal: Denies nausea and Denies vomiting Neurologic: Denies dizziness, Denies syncope, Denies headache(s), Denies focal weakness and Denies numbness PMFSH Past Medical History Medical History (Updated 12/22/20 @ 11:06 by Sriram Childress MD) Atrial flutter with rapid ventricular response (~03/2017) Status post DC cardioversion. Benign prostatic hyperplasia Bladder cancer (~06/2019) Noninvasive low-grade papillary urothelial carcinoma. Bowel obstruction Chronic anemia Chronic kidney disease, stage 3 Baseline creatinine ranges between 1.3 and 1.50. Chronic obstructive pulmonary disease Chronic respiratory failure with hypoxia, on home oxygen therapy Compression fracture Chronic compression fractures in the low thoracic and lumbar spine. Coronary artery disease (~05/2016) Cardiac catheterization per Dr. Bills showed a 99% mid RCA lesion with unsuccessful PTCA as lesion was unable to be crossed. Depression with anxiety Essential hypertension Hyperlipidemia Osteoarthritis Paroxysmal atrial fibrillation Pneumonia Pulmonary embolism Tremor Surgical History Surgical History (Updated 02/23/20 @ 22:40 by Josephine Alejandro PA-C) History of abdominal aortic aneurysm repair (~2003) History of cardiac cath History of cataract extraction History of cholecystectomy History of inguinal hernia repair Status post surgical removal and fulguration of bladder neoplasm (~
[2020-12-22 08:30] LABS: Basophils Percent Auto 0.5 % (0.2-1.2); Eosinophils Absolute Auto 0.2 K/mm3 (0-0.3); Eosinophils Percent Auto 2.7 % (0-4.4); Hematocrit 34.8 % (42.0-52.0); Immature Granulocyte Absolute 0.03 K/mm3 (0.00-0.031); Immature Granulocyte Percent A 0.5 % (0-0.5); Lymphocytes Absolute Auto 0.95 K/mm3 (0.9-3.2); Lymphocytes Percent Auto 15.3 % (18.3-44.2); Mean Corpuscular HGB Conc 31.6 g/dl (32-36); Mean Corpuscular Hemoglobin 29.8 pg (26-34); Mean Corpuscular Volume 94.3 fl (80-100); Mean Platelet Volume 9.6 fl (7.4-10.4); Monocytes Absolute Auto 0.4 K/mm3 (0.1-0.6); Monocytes Percent Auto 6.9 % (2.6-8.5); Neutrophils Absolute Auto 4.6 K/mm3 (1.3-6.7); Neutrophils Percent Auto 74.1 % (45.5-73.1); Platelet Count Result 140 k/mm3 (150-375); Red Blood Count 3.69 M/mm3 (4.6-6.20); Red Cell Distribution Width 13.8 % (11.5-14.5); White Blood Count 6.2 K/mm3 (4.5-10.0)
[2020-12-22] MEDS: SODIUM CHLORIDE 0.9% IV 1,000 ML 999 ML IV CONT (08:37)
[2020-12-22 08:51] LABS: Blood Urea Nitrogen 31 mg/dL (9-20); Calcium 8.8 mg/dL (8.4-10.2); Carbon Dioxide > 40 mmol/L (22-30); Chloride 99 mmol/L (98-107); Estimated CRCL calculation 44 ml/min; Estimated Glomerular Filt Rate 49; Glucose 89 mg/dL (75-110); Potassium 3.9 mmol/L (3.4-5.0); Sodium 140 mmol/L (137-145)
--- NOTE | 2020-12-22 10:02 | PC.NURSE ---
Frequent checks on patency of IV, tremors causing fluids to flow at slower rate.
--- NOTE | 2020-12-22 11:38 | PC.NURSE ---
1045 pt daughter declines antibiotic ointment for head lesion. Head wound cleaned, bandaid applied. Minor bleeding occurred before discharge, gauze dressing with tegaderm and paper tape applied.
== END 2020-12-22 11:30 | disposition home or self-care (01) ==
PROVIDERS: Emergency Provider Emergency Medicine; PCP Family Medicine
DX: S00.01XA Abrasion of scalp, initial encounter (principal); E86.0 Dehydration; G20 Parkinson's disease; J44.9 Chronic obstructive pulmonary disease, unspecified; N40.0 Benign prostatic hyperplasia without lower urinary tract symptoms; D63.1 Anemia in chronic kidney disease; I12.9 Hypertensive chronic kidney disease with stage 1 through stage 4 chronic kidney disease, or unspecified chronic kidney disease; N18.30 Chronic kidney disease, stage 3 unspecified; J96.11 Chronic respiratory failure with hypoxia; I25.10 Atherosclerotic heart disease of native coronary artery without angina pectoris; E78.5 Hyperlipidemia, unspecified; M19.90 Unspecified osteoarthritis, unspecified site; I48.0 Paroxysmal atrial fibrillation; Z86.711 Personal history of pulmonary embolism; Z99.81 Dependence on supplemental oxygen; Z79.01 Long term (current) use of anticoagulants; Z98.49 Cataract extraction status, unspecified eye; Z87.891 Personal history of nicotine dependence; W01.198A Fall on same level from slipping, tripping and stumbling with subsequent striking against other object, initial encounter
CPT/HCPCS: 36415; 70450; 80048; 85025; 96360; 96361; 99284; J7030

== ENCOUNTER 2021-01-08 13:08 | Emergency (ER) | payer MEDICARE, SELFPAY ==
[2021-01-08 13:14] VITALS: BP 126/60; PULSE 84; RESP 20; TEMP 36.3; O2SAT 97
--- NOTE | 2021-01-08 17:22 | ED.GENADULT ---
HPI - General Adult General Chief complaint: Eye Problems Stated complaint: r eye injury Time Seen by Provider: 01/08/21 16:19 Source: patient and family Mode of arrival: ambulatory Limitations: no limitations History of Present Illness HPI narrative: Patient is an 80-year-old male who presents to emergency department for evaluation of right eye irritation for the last couple of days noting that he had an eyelash going to his eye and may have scratched his eye while trying to remove it every day has developed some redness and irritation with some matting and discharge patient has not taken anything for his symptoms presents for private vehicle with his daughter who he lives with on arrival patient in the room in no distress Related Data Home Medications Medication Instructions Recorded Confirmed Combivent Respimat 1 puff INHALATION QID 10/27/19 10/08/20 alfuzosin 10 mg PO DAILY 10/27/19 10/08/20 budesonide-formoterol [Symbicort] 2 puff INHALATION BID 10/27/19 10/08/20 flecainide 100 mg PO BID 10/27/19 10/08/20 fluticasone propionate 1 spray INTRANASAL DAILY PRN 10/27/19 10/08/20 isosorbide mononitrate 30 mg PO DAILY 10/27/19 10/08/20 montelukast 10 mg PO DAILY 10/27/19 10/08/20 triamterene-hydrochlorothiazid 1 cap PO DAILY 10/27/19 10/08/20 Eliquis 2.5 mg PO BID 02/23/20 10/08/20 Perdiem Overnight Relief 30 mg PO DAILY 02/23/20 10/08/20 aspirin 81 mg PO DAILY 02/23/20 10/08/20 cholecalciferol (vitamin D3) 125 mcg PO DAILY 02/23/20 10/08/20 [Vitamin D3] nitroglycerin 0.4 mg SUBLINGUAL DIRECTED PRN 02/23/20 10/08/20 polyethylene glycol 3350 [Miralax] 17 g PO DAILY 02/23/20 10/08/20 potassium chloride 20 meq PO DAILY 02/23/20 10/08/20 Allergies Allergy/AdvReac Type Severity Reaction Status Date / Time tetanus and diphtheria Allergy Severe FEVER, Verified 12/22/20 07:30 toxoids CHILLS clindamycin Allergy Unknown RASH Verified 12/22/20 07:30 amiodarone AdvReac Severe liver Verified 12/22/20 07:30 toxicity Review of Systems Review of Systems: All systems reviewed & are unremarkable except as noted in HPI and below PMFSH Past Medical History Medical History Atrial flutter with rapid ventricular response (~03/2017) Status post DC cardioversion. Benign prostatic hyperplasia Bladder cancer (~06/2019) Noninvasive low-grade papillary urothelial carcinoma. Bowel obstruction Chronic anemia Chronic kidney disease, stage 3 Baseline creatinine ranges between 1.3 and 1.50. Chronic obstructive pulmonary disease Chronic respiratory failure with hypoxia, on home oxygen therapy Compression fracture Chronic compression fractures in the low thoracic and lumbar spine. Coronary artery disease (~05/2016) Cardiac catheterization per Dr. Bills showed a 99% mid RCA lesion with unsuccessful PTCA as lesion was unable to be crossed. Depression with anxiety Essential hypertension Hyperlipidemia Osteoarthritis Paroxysmal atrial fibrillation Pneumonia Pulmonary embolism Tremor Surgical History Surgical History History of abdominal aortic aneurysm repair (~2003) History of cardiac cath History of cataract extraction History of cholecystectomy History of inguinal hernia repair Status post surgical removal and fulguration of bladder neoplasm (~06/2019) Family History Family History Mother Acute myocardial infarction Father Aortic aneurysm Sibling Aortic aneurysm Social History Social History Social History: The patient lives in [place]. He is . His daughter lives at home with him. 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 He was a heavy smoker, up to 2 packs of cigarettes per day for 45 years, and he ultimately quit in 1999. He denies alcohol and drug abuse. He designates his daughter, Jossy
[2021-01-08] MEDS: ERYTHROMYCIN OPHTH OINTMENT 1 GM TUBE 1 APPLIC EACH EYE (17:32)
[2021-01-08 17:48] VITALS: BP 132/78; PULSE 86; RESP 22; O2SAT 96
== END 2021-01-08 17:49 | disposition home or self-care (01) ==
PROVIDERS: Emergency Provider Family Medicine; PCP Family Medicine
DX: H10.9 Unspecified conjunctivitis (principal); I48.0 Paroxysmal atrial fibrillation; D63.1 Anemia in chronic kidney disease; I12.9 Hypertensive chronic kidney disease with stage 1 through stage 4 chronic kidney disease, or unspecified chronic kidney disease; N18.30 Chronic kidney disease, stage 3 unspecified; J44.9 Chronic obstructive pulmonary disease, unspecified; J96.11 Chronic respiratory failure with hypoxia; I25.10 Atherosclerotic heart disease of native coronary artery without angina pectoris; E78.5 Hyperlipidemia, unspecified; N40.0 Benign prostatic hyperplasia without lower urinary tract symptoms; M19.90 Unspecified osteoarthritis, unspecified site; Z79.01 Long term (current) use of anticoagulants; Z86.711 Personal history of pulmonary embolism; Z79.82 Long term (current) use of aspirin; Z98.49 Cataract extraction status, unspecified eye; Z87.891 Personal history of nicotine dependence
CPT/HCPCS: 99283; A9270

== ENCOUNTER 2021-02-07 14:12 | Outpatient (CLI) | payer MEDICARE, SELFPAY ==
[2021-02-07 14:50] LABS: Creatinine Urine 119.5 mg/dL; Total Protein Urine Random 15 mg/dL; Ur Ttl Prot Creatinine Ratio 0.13 mg/mg (0-0.20)
[2021-02-07 14:54] LABS: Albumin Level 3.5 g/dL (3.5-5.1); Blood Urea Nitrogen 34 mg/dL (9-20); Calcium 9.2 mg/dL (8.4-10.2); Carbon Dioxide > 40 mmol/L (22-30); Chloride 99 mmol/L (98-107); Estimated Glomerular Filt Rate 42; Glucose 127 mg/dL (75-110); Sodium 142 mmol/L (137-145)
== END 2021-02-07 14:13 | disposition home or self-care (01) ==
PROVIDERS: PCP Family Medicine; Referring Provider Family Medicine; Visit Provider Internal Medicine Nephrology
DX: I12.9 Hypertensive chronic kidney disease with stage 1 through stage 4 chronic kidney disease, or unspecified chronic kidney disease (principal); N18.31 Chronic kidney disease, stage 3a; R80.8 Other proteinuria
CPT/HCPCS: 36415; 80069; 82570; 84156

== ENCOUNTER 2021-08-22 13:24 | Outpatient (CLI) | payer MEDICARE, SELFPAY ==
[2021-08-22 14:28] LABS: Creatinine Urine 130.4 mg/dL; Total Protein Urine Random 31 mg/dL; Ur Ttl Prot Creatinine Ratio 0.24 mg/mg (0-0.20)
[2021-08-22 14:30] LABS: Albumin Level 3.6 g/dL (3.5-5.1); Anion Gap 7 mmol/L (8-16); Blood Urea Nitrogen 45 mg/dL (9-20); Calcium 9.5 mg/dL (8.4-10.2); Carbon Dioxide 39 mmol/L (22-30); Chloride 99 mmol/L (98-107); Estimated Glomerular Filt Rate 36; Glucose 105 mg/dL (65-110); Phosphorus 4.5 mg/dL (2.5-4.5); Potassium 4.1 mmol/L (3.4-5.0); Sodium 145 mmol/L (137-145)
[2021-08-22 14:47] LABS: Parathyroid Intact 13.3 pg/mL (7.5-53.5)
[2021-08-22 14:51] LABS: Vitamin D 25 Hydroxy 73.7 ng/mL
== END 2021-08-22 13:25 | disposition home or self-care (01) ==
PROVIDERS: PCP Emergency Medicine; Visit Provider Internal Medicine Nephrology
DX: N18.32 Chronic kidney disease, stage 3b (principal); I12.9 Hypertensive chronic kidney disease with stage 1 through stage 4 chronic kidney disease, or unspecified chronic kidney disease; R53.82 Chronic fatigue, unspecified
CPT/HCPCS: 36415; 80069; 82306; 82570; 83970; 84156

== ENCOUNTER 2021-10-11 10:51 | Outpatient (CLI) | payer MEDICARE, SELFPAY ==
[2021-10-11 11:27] LABS: Alanine Aminotransferase 13 U/L (4-50); Albumin Level 3.7 g/dL (3.5-5.1); Alkaline Phosphatase 105 U/L (38-126); Anion Gap 5 mmol/L (8-16); Aspartate Amino Transferase 22 U/L (17-59); Bilirubin,Total 0.3 mg/dL (0.2-1.3); Blood Urea Nitrogen 34 mg/dL (9-20); Carbon Dioxide 37 mmol/L (22-30); Chloride 98 mmol/L (98-107); Cholesterol 154 mg/dL (0-200); Estimated Glomerular Filt Rate 42; Glucose 104 mg/dL (65-110); HDL Direct 39 mg/dL; Potassium 4.1 mmol/L (3.4-5.0); Sodium 140 mmol/L (137-145); Triglycerides 77 mg/dL (<150)
[2021-10-11 11:38] LABS: LDL Cholesterol Direct 94 mg/dL
[2021-10-11 12:31] LABS: Folic Acid 17.5 ng/mL (2.76->20)
== END 2021-10-11 10:52 | disposition home or self-care (01) ==
PROVIDERS: PCP Emergency Medicine; Visit Provider Emergency Medicine
DX: E53.8 Deficiency of other specified B group vitamins (principal); I10 Essential (primary) hypertension
CPT/HCPCS: 36415; 80053; 80061; 82607; 82746

== ENCOUNTER 2021-12-19 14:51 | Outpatient (CLI) | payer MEDICARE, SELFPAY ==
[2021-12-19 15:46] LABS: Albumin Level 3.5 g/dL (3.5-5.1); Anion Gap 6 mmol/L (8-16); Blood Urea Nitrogen 45 mg/dL (9-20); Calcium 9.1 mg/dL (8.4-10.2); Carbon Dioxide 38 mmol/L (22-30); Chloride 97 mmol/L (98-107); Estimated Glomerular Filt Rate 34; Glucose 116 mg/dL (65-110); Phosphorus 4.6 mg/dL (2.5-4.5); Potassium 4.2 mmol/L (3.4-5.0); Sodium 141 mmol/L (137-145)
[2021-12-19 15:50] LABS: Creatinine Urine 139.4 mg/dL; Total Protein Urine Random 16 mg/dL; Ur Ttl Prot Creatinine Ratio 0.11 mg/mg (0-0.20)
== END 2021-12-19 14:52 | disposition home or self-care (01) ==
PROVIDERS: PCP Emergency Medicine; Visit Provider Internal Medicine Nephrology
DX: N18.32 Chronic kidney disease, stage 3b (principal); I12.9 Hypertensive chronic kidney disease with stage 1 through stage 4 chronic kidney disease, or unspecified chronic kidney disease; R80.8 Other proteinuria
CPT/HCPCS: 36415; 80069; 82570; 84156

== ENCOUNTER 2022-01-12 14:01 | Outpatient (CLI) | payer MEDICARE, SELFPAY ==
[2022-01-12 14:39] LABS: Alanine Aminotransferase 12 U/L (4-50); Albumin Level 3.5 g/dL (3.5-5.1); Alkaline Phosphatase 104 U/L (38-126); Anion Gap 5 mmol/L (8-16); Aspartate Amino Transferase 25 U/L (17-59); Bilirubin,Total 0.2 mg/dL (0.2-1.3); Blood Urea Nitrogen 42 mg/dL (9-20); Calcium 8.8 mg/dL (8.4-10.2); Carbon Dioxide 37 mmol/L (22-30); Chloride 97 mmol/L (98-107); Estimated Glomerular Filt Rate 36; Glucose 110 mg/dL (65-110); Potassium 3.7 mmol/L (3.4-5.0); Sodium 139 mmol/L (137-145)
[2022-01-12 15:41] LABS: Folic Acid > 20.0 ng/mL (2.76->20)
[2022-01-16 12:49] LABS: Vitamin D 1,25 (OH)2 Total 29 pg/mL (18-72); Vitamin D2 1,25 (OH)2 <8 pg/mL; Vitamin D3 1,25 (OH)2 29 pg/mL
== END 2022-01-12 14:02 | disposition home or self-care (01) ==
PROVIDERS: PCP Emergency Medicine; Visit Provider Emergency Medicine
DX: R53.83 Other fatigue (principal); E55.9 Vitamin D deficiency, unspecified; I10 Essential (primary) hypertension
CPT/HCPCS: 36415; 80053; 82607; 82652; 82746

== ENCOUNTER 2022-01-27 09:33 | Emergency (ER) | payer MEDICARE, SELFPAY ==
[2022-01-27] VITALS (15 sets, daily range): BP systolic 115–153; BP diastolic 56–109; PULSE 61–72; RESP 16–21; TEMP 36.3; O2SAT 96–100
--- NOTE | ~2022-01-27 | CT_ITS ---
EXAMINATION: CTA chest abdomen pelvis DATE: 01/27/2022 11:39 INDICATION: Chest pain and shortness of breath. Abdominal aortic aneurysm. TECHNIQUE: Computed tomography (CT) angiogram of the chest was performed with 100 mL Omnipaque-350 in travenous contrast. Additional 3D reconstructions utilizing coronal maximum intensity projection (MIP ) were performed. CT of the abdomen and pelvis was performed with intravenous contrast utilizing the same contrast bolus following a short delay. Automated exposure control and iterative reconstruction technique were employed. The dose-length product was 1833.16 mGy-cm. COMPARISON: CT chest dated 07/10/[address] abdomen and pelvis dated 02/23/2020 FINDINGS: Chest: Moderate emphysema. Calcified left lower lobe nodule consistent with old granulomatous disease. Uncha nged pleural-based noncalcified granuloma in the right lower lobe. Similar pattern of mild atelectasis/scarring in the bilateral lower lobes. Fusiform thoracic aortic a neurysm which measures up to 4.4 x 4.2 cm in maximal diameter immediately distal to the takeoff of th e left subclavian artery. No dissection. Cardiomegaly. Atherosclerotic coronary artery calcification. No pericardial effusion. No pathologically enlarged thoracic lymphadenopathy. Severe lower cervical spondylosis. Mild thoracic spondylosis with chronic mild anterior wedging of several mid and lower th oracic vertebral bodies. There are bridging osteophytes at multiple levels consistent with diffuse id iopathic skeletal hyperostosis (DISH). Abdomen/pelvis: There is a stented infrarenal abdominal aortic aneurysm with aortobiiliac endoluminal stenting. The a neurysm sac has increased slightly from 6.6 x 6.6 cm to currently measuring 7.1 x 6.6 cm with linear regions of increased attenuation in the aneurysm sac suspicious for endoleak. Small peripheral wedge- shaped region of transient hepatic attenuation difference in segment 6 of the liver. Chronic dilation of the common bile duct which currently measures up to 1.9 cm diameter but with only minimal central intrahepatic biliary ductal dilation most likely represent sequela of prior cholecystectomy with randy gical clips in the gallbladder fossa. Spleen, pancreas and bilateral adrenal glands are normal. Bilat eral renal cysts the largest on the right measuring 4 cm in maximal diameter. Moderate scattered dive rticulosis without adjacent inflammatory change to suggest diverticulitis. Small bowel and appendix a re normal. Bladder is normal. Small bilateral fat-containing inguinal hernias. No free intraperitonea l gas or fluid. No pathologically enlarged abdominal or pelvic lymphadenopathy. Chronic mild L1 compr ession fracture. Mild lumbar spondylosis but with Naper's disease along the spinous processes and m oderate to severe lower lumbar facet osteoarthritis. 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 IMPRESSION: 1. No significant change in a 4.4 x 4.2 cm fusiform aneurysm at the distal aortic arch. 2. Slight increase in size of a stented 7.1 x 6.6 cm infrarenal abdominal aortic aneurysm with sugges tion of small amount of endoleak within the aneurysm sac. 3. Cardiomegaly. 4. Moderate emphysema. Reviewed, dictated and finalized at location A. IMPRESSION: 1. No significant change in a 4.4 x 4.2 cm fusiform aneurysm at the distal aort ic arch. 2. Slight increase in size of a stented 7.1 x 6.6 cm infrarenal abdominal aorti c aneurysm with suggestion of small amount of endoleak within the aneurysm sac. 3. Cardiomegaly. 4. Moderate emphysema.
--- NOTE | 2022-01-27 09:30 | ECG_ITS ---
Measurements Intervals [place] Rate: 66 P: 15 MA: 261 QRS: -46 QRSD: 172 T: 69 QT: 461 QTc: 486 Interpretive Statements SINUS RHYTHM WITH FIRST DEGREE AV BLOCK RIGHT BUNDLE BRANCH BLOCK [120+ ms QRS DURATION, UPRIGHT V1, 40+ ms S IN I/aVL/V4/V5/V6] LEFT ANTERIOR FASCICULAR BLOCK [QRS AXIS <= -45, QR IN I, RS IN II] INTERPRETATION BASED ON A DEFAULT AGE OF 40 YEARS COMPARED TO ECG 10/08/2020 14:29:39 NO SIGNIFICANT CHANGES Electronically Signed On 01-28-2022 7:53:29 CDT by Kartik Bills M.D.
[2022-01-27 10:01] LABS: Basophils Percent Auto 0.5 % (0.2-1.2); Eosinophils Absolute Auto 0.2 K/mm3 (0-0.3); Eosinophils Percent Auto 2.8 % (0-4.4); Hematocrit 30.3 % (42.0-52.0); Hemoglobin 9.3 g/dL (14.0-18.0); Immature Granulocyte Absolute 0.01 K/mm3 (0.00-0.031); Immature Granulocyte Percent A 0.2 % (0-0.5); Lymphocytes Absolute Auto 0.78 K/mm3 (0.9-3.2); Lymphocytes Percent Auto 12.7 % (18.3-44.2); Mean Corpuscular HGB Conc 30.7 g/dl (32-36); Mean Corpuscular Hemoglobin 29.9 pg (26-34); Mean Corpuscular Volume 97.4 fl (80-100); Mean Platelet Volume 10.2 fl (7.4-10.4); Monocytes Absolute Auto 0.6 K/mm3 (0.1-0.6); Monocytes Percent Auto 10.3 % (2.6-8.5); Neutrophils Absolute Auto 4.5 K/mm3 (1.3-6.7); Neutrophils Percent Auto 73.5 % (45.5-73.1); Platelet Count Result 154 k/mm3 (150-375); Red Blood Count 3.11 M/mm3 (4.6-6.20); White Blood Count 6.1 K/mm3 (4.5-10.0)
[2022-01-27 10:12] LABS: Alanine Aminotransferase 11 U/L (4-50); Albumin Level 3.5 g/dL (3.5-5.1); Alkaline Phosphatase 91 U/L (38-126); Anion Gap 4 mmol/L (8-16); Aspartate Amino Transferase 23 U/L (17-59); Bilirubin,Total 0.3 mg/dL (0.2-1.3); Blood Urea Nitrogen 43 mg/dL (9-20); Calcium 8.9 mg/dL (8.4-10.2); Carbon Dioxide 35 mmol/L (22-30); Chloride 101 mmol/L (98-107); Estimated CRCL calculation 41 ml/min; Estimated Glomerular Filt Rate 45; Glucose 98 mg/dL (65-110); Lipase 45 U/L (23-300); Potassium 3.9 mmol/L (3.4-5.0); Sodium 140 mmol/L (137-145)
--- NOTE | 2022-01-27 10:37 | PC.NURSE ---
lunch ordered for pt
--- NOTE | 2022-01-27 11:09 | ED.GENADULT ---
HPI - General Adult General Chief complaint: Abdominal Pain Stated complaint: upper abd pain x 2 weeks Time Seen by Provider: 01/27/22 09:36 Source: patient and family Limitations: no limitations History of Present Illness HPI narrative: 81-year-old male with history of AAA repair in 2003, hiatal hernia, COPD, presented to the emergency department for evaluation of epigastric pain and worsening SOB. Patient states over the last 2 weeks he has had worsening epigastric pain. Patient states the pain does radiate up his chest and into his back. Patient reports decreased p.o. intake. Patient does have a history of AAA repair in 2003. Patient is normally on 3 L of oxygen at all times. Related Data Home Medications Medication Instructions Recorded Confirmed Combivent Respimat 1 puff INHALATION QID 10/27/19 01/22/22 budesonide-formoterol [Symbicort] 2 puff INHALATION BID 10/27/19 01/22/22 flecainide 100 mg PO BID 10/27/19 01/22/22 fluticasone propionate 1 spray INTRANASAL DAILY PRN 10/27/19 01/22/22 isosorbide mononitrate 30 mg PO DAILY 10/27/19 01/22/22 Eliquis 2.5 mg PO BID 02/23/20 01/22/22 Perdiem Overnight Relief 30 mg PO DAILY 02/23/20 01/22/22 aspirin 81 mg PO DAILY 02/23/20 01/22/22 cholecalciferol (vitamin D3) 125 mcg PO DAILY 02/23/20 01/22/22 [Vitamin D3] nitroglycerin 0.4 mg SUBLINGUAL DIRECTED PRN 02/23/20 01/22/22 polyethylene glycol 3350 [Miralax] 17 g PO DAILY 02/23/20 01/22/22 albuterol sulfate 90 mcg/actuation See Rx Instructions .ROUTE .COMPLEX 07/12/21 01/22/22 aerosol inhaler famotidine-Ca carb-mag hydrox 10 1 tablet PO DAILY PRN 07/12/21 01/22/22 mg-800 mg-165 mg chewable tablet pediatric multivitamin no.76 1 tablet PO DAILY 07/12/21 01/22/22 atenolol 50 mg tablet 50 mg PO DAILY 10/18/21 01/22/22 Allergies Allergy/AdvReac Type Severity Reaction Status Date / Time tetanus and diphtheria Allergy Severe FEVER, Verified 01/27/22 09:36 toxoids CHILLS clindamycin Allergy Unknown RASH Verified 01/27/22 09:36 amiodarone AdvReac Severe liver Verified 01/27/22 09:36 toxicity BREZTRI Allergy Severe Difficulty Uncoded 01/27/22 09:36 Breathing Review of Systems Review of Systems: CONSTITUTIONAL: Increased generalized weakness EYES: Denies visual changes, redness, or discharge. ENT: Denies rhinorrhea, congestion, sore throat, or otalgia. CARDIOVASCULAR: See HPI RESPIRATORY: On 3 L of oxygen by nasal cannula, worsening shortness of breath GASTROINTESTINAL: See HPI GENITOURINARY: Denies dysuria or hematuria. SKIN: Denies rash or itching. MUSCULOSKELETAL: Denies back pain, joint pain, or myalgia. NEUROLOGIC: Denies headache, numbness, or weakness. All systems reviewed & are unremarkable except as noted in HPI and below PMFSH Past Medical History Medical History Atrial flutter with rapid ventricular response (~03/2017) Status post DC cardioversion. Benign prostatic hyperplasia Bladder cancer (~06/2019) Noninvasive low-grade papillary urothelial carcinoma. Bowel obstruction Chronic anemia Chronic kidney disease, stage 3 Baseline creatinine ranges between 1.3 and 1.50. Chronic obstructive pulmonary disease Chronic respiratory failure with hypoxia, on home oxygen therapy Compression fracture Chronic compression fractures in the low thoracic and lumbar spine. Coronary artery disease (~05/2016) Cardiac catheterization per Dr. Bills showed a 99% mid RCA lesion with unsuccessful PTCA as lesion was unable to be crossed. Depression with anxiety Essential hypertension Hyperlipidemia Osteoarthritis Paroxysmal atrial fibrillation Pneumonia Pulmonary embolism Tremor Surgical History Surgical History History of abdominal aortic aneurysm repair (~2003) History of cardiac cath History of cataract extraction History of cholecystectomy History of inguinal hernia repair Status post surgi
[2022-01-27] MEDS: ALBUTEROL SULFATE NEB 2.5 MG/0.5 ML INH 5 MG INHALATION (11:16)
[2022-01-27 11:43] LABS: NT Pro B Type Natriuretic Pept 690 pg/mL (5-100)
[2022-01-27 11:44] LABS: Troponin I < 0.012 ng/mL (0.000-0.034)
--- NOTE | 2022-01-27 13:36 | PC.NURSE ---
Pt stood at bedside with assistance of tech to provide urine sample. When pt moved to standing position SpO2 dropped to 70% on 3L/NC. Pt got back into bed. SpO2 slowly improved to 95% with rest. Pt denies feeling short of breath at this time. Dr. Watt made aware.
[2022-01-27 13:57] LABS: Add Urine Microscopic? YES; Appearance Urine Cloudy (Clear); Bacteria Urine Trace /hpf; Bilirubin Urine Negative (Negative); Blood Urine Negative (Negative); Color Urine Yellow (Yellow); Glucose Urine UA Negative (Negative); Ketones Urine Negative (Negative); Leukocyte Esterase Ur 3+ LEU/UL (Negative); Mucus Urine Rare /lpf; Nitrate Urine Negative (Negative); Protein Urine Negative (Negative); Squamous Epithelial Cell Urine Occasional /hpf (Few); Urobilinogen Urine Negative mg/dL (<2.0); WBC Urine >75 /hpf
[2022-01-27 14:08] LABS: Specific Grav Ur 1.044 (1.001-1.035)
[2022-01-27 14:31] LABS: Troponin I < 0.012 ng/mL (0.000-0.034)
--- NOTE | 2022-01-27 14:36 | PC.NURSE ---
Dr. disla at bedside to discuss results and treatment plan with pt and family
[2022-01-27 15:20] LABS: SARS-CoV-2 RNA PCR Negative
--- NOTE | 2022-01-27 15:32 | PC.NURSE ---
Pt has been accepted to [facility]. Awaiting bed assignment.
--- NOTE | 2022-01-27 16:12 | PC.NURSE ---
Pt offered meal; pt declined.
--- NOTE | 2022-01-27 16:56 | PC.NURSE ---
Pt sitting in recliner chair. Still awaiting bed assignment at [facility].
[2022-01-27] MEDS: APIXABAN 2.5 MG TABLET PO (22:55)
[2022-01-27] MEDS: FLECAINIDE ACETATE 100 MG TABLET PO (22:55)
== END 2022-01-27 23:10 | disposition short-term general hospital (02) ==
PROVIDERS: Emergency Provider Emergency Medicine; PCP Emergency Medicine
DX: T82.390A Other mechanical complication of aortic (bifurcation) graft (replacement), initial encounter (principal); J96.11 Chronic respiratory failure with hypoxia; R10.13 Epigastric pain; Z20.822 Contact with and (suspected) exposure to COVID-19; J44.9 Chronic obstructive pulmonary disease, unspecified; I12.9 Hypertensive chronic kidney disease with stage 1 through stage 4 chronic kidney disease, or unspecified chronic kidney disease; N18.30 Chronic kidney disease, stage 3 unspecified; I25.10 Atherosclerotic heart disease of native coronary artery without angina pectoris; E78.5 Hyperlipidemia, unspecified; I48.92 Unspecified atrial flutter; I48.0 Paroxysmal atrial fibrillation; D64.9 Anemia, unspecified; N40.0 Benign prostatic hyperplasia without lower urinary tract symptoms; Z99.81 Dependence on supplemental oxygen; Z85.51 Personal history of malignant neoplasm of bladder; Z86.711 Personal history of pulmonary embolism; Z87.01 Personal history of pneumonia (recurrent); Z98.49 Cataract extraction status, unspecified eye; Z79.82 Long term (current) use of aspirin; Z79.01 Long term (current) use of anticoagulants; Z87.891 Personal history of nicotine dependence; Y71.8 Miscellaneous cardiovascular devices associated with adverse incidents, not elsewhere classified
CPT/HCPCS: 36415; 71275; 74174; 80053; 81001; 83690; 83880; 84484; 85025; 86850; 86900; 86901; 87086; 87088; 93005; 94640; 99285; A9270; C9803; Q9967; U0003; U0005

== ENCOUNTER 2022-02-08 15:05 | Outpatient (NON) | payer MEDICARE, SELFPAY ==
[2022-02-08 16:00] LABS: Alanine Aminotransferase 13 U/L (4-50); Albumin Level 3.2 g/dL (3.5-5.1); Alkaline Phosphatase 81 U/L (38-126); Anion Gap 4 mmol/L (8-16); Aspartate Amino Transferase 21 U/L (17-59); Bilirubin,Total 0.2 mg/dL (0.2-1.3); Blood Urea Nitrogen 52 mg/dL (9-20); Calcium 9.1 mg/dL (8.4-10.2); Carbon Dioxide 38 mmol/L (22-30); Chloride 98 mmol/L (98-107); Estimated Glomerular Filt Rate 45; Glucose 127 mg/dL (65-110); Potassium 3.5 mmol/L (3.4-5.0); Sodium 140 mmol/L (137-145)
[2022-02-09 10:08] LABS: NT Pro B Type Natriuretic Pept 802 pg/mL (5-100)
== END 2022-02-08 15:06 | disposition home or self-care (01) ==
PROVIDERS: PCP Emergency Medicine; Visit Provider Emergency Medicine
DX: N18.30 Chronic kidney disease, stage 3 unspecified (principal); I48.91 Unspecified atrial fibrillation; J44.9 Chronic obstructive pulmonary disease, unspecified; R06.02 Shortness of breath; S22.000D Wedge compression fracture of unspecified thoracic vertebra, subsequent encounter for fracture with routine healing; S32.000D Wedge compression fracture of unspecified lumbar vertebra, subsequent encounter for fracture with routine healing; I25.10 Atherosclerotic heart disease of native coronary artery without angina pectoris; X58.XXXD Exposure to other specified factors, subsequent encounter
CPT/HCPCS: 80053; 83880

== ENCOUNTER 2022-02-13 01:46 | Emergency (ER) | payer MEDICARE, SELFPAY ==
--- NOTE | ~2022-02-13 | XR_ITS ---
XR elbow RT min 3V DATE: 02/13/2022 03:24 INDICATION: Fall. Right elbow injury, pain TECHNIQUE: 4 views COMPARISON: 10/27/2019 right elbow FINDINGS: No fracture or dislocation or joint effusion is detected. There is degenerative change at t he elbow. IMPRESSION: No fracture or dislocation or joint effusion Reviewed, dictated and finalized at location B.
--- NOTE | ~2022-02-13 | XR_ITS ---
EXAMINATION: XR knee RT min 4V DATE: 02/13/2022 03:24 INDICATION: Right knee pain TECHNIQUE: Four views of the right knee were obtained. COMPARISON: None. FINDINGS: Alignment is normal. No fracture or osteochondral lesion. There is mild tricompartmental os teoarthritis characterized by tiny marginal osteophytes. No joint effusion/synovitis. Calcified athe rosclerosis is noted. IMPRESSION: 1. No acute osseous abnormality. Reviewed, dictated and finalized at location A.
--- NOTE | ~2022-02-13 | CT_ITS ---
EXAMINATION: CT brain wo con DATE: 02/13/2022 03:08 INDICATION: Fall. Minor head trauma. Supraorbital pain on the right. TECHNIQUE: Computed tomography (CT) of the head was performed without intravenous contrast. The mA wa s adjusted according to patient size. Iterative reconstruction technique was employed. Exam dose: 68 1.00 mGy-cm total exam DLP. COMPARISON: 12/22/2020 CT head FINDINGS: Bilateral vertebral artery and carotid siphon internal carotid artery calcifications. There is nonspecific diminished attenuation of the cerebral white matter, likely due to chronic small vess el ischemic changes. No intracranial mass lesion or hemorrhage or cerebrovascular accident is evident. No midline shift or mass effect. There is moderate cerebral volume loss. No subdural or epidural hematoma. Left mastoid effusions. Right mastoid air cells are well-developed and aerated. There is patchy opacification of right ethmoid air cells and mild mucoperiosteal thickening right fro ntal sinus, minimal mucoperiosteal thickening of the right maxillary sinus. No fracture or bone destruction of the cranial vault. IMPRESSION: Cerebral atherosclerosis and chronic small vessel ischemic changes of the cerebral white matter Paranasal sinus and left mastoid sinus disease Reviewed, dictated and finalized at Location A. Reviewed, dictated and finalized at location B.
--- NOTE | ~2022-02-13 | CT_ITS ---
EXAMINATION: CT cervical spine wo con DATE: 02/13/2022 03:08 INDICATION: Fall. Neck pain. TECHNIQUE: Computed tomography (CT) of the cervical spine was performed without intravenous contrast. Automated exposure control and iterative reconstruction technique were employed. Exam dose: 552.20 mGy-cm total exam DLP. COMPARISON: None FINDINGS: Left mastoid effusions. Right mastoid air cells are normally developed and aerated. There is straightening of the cervical spine. C1 and C2 are normally aligned and the odontoid process is intact. No fracture or dislocation or locked facet is evident. There is degenerative disc disease, moderate at C2-3, moderately severe at C3-4 and C4-5, severe at C 5-6 and C6-7, posterior spurring at all levels, minimal at C2-3. There is uncovertebral joint spurrin g at C3-4, C4-5, C5-6, C6-7. Incidentally noted is prominent emphysematous change of the lungs. There is thoracic aortic aneurysm.. IMPRESSION: Severe cervical spondylosis Straightening of cervical spine which may be secondary to muscle spasm No fracture or dislocation or locked facet Emphysema Thoracic aortic aneurysm Reviewed, dictated and finalized at Location A. Reviewed, dictated and finalized at location B.
--- NOTE | 2022-02-13 02:45 | ED.GENADULT ---
HPI - General Adult General Chief complaint: Fall Stated complaint: FALL/HEAD INJURY Time Seen by Provider: 02/13/22 02:05 Source: patient History of Present Illness HPI narrative: 81-year-old male history of hypertension, high cholesterol, atrial fibrillation and frequent falls presenting to the emergency department for evaluation after having a ground-level fall. Patient states that he was walking and his legs got weak and he fell. Patient did strike his head. Patient does report lateral right-sided neck pain. Patient also has right elbow pain and right knee pain. Patient denies any loss consciousness. Patient does report he does have frequent falls. Patient does have multiple longstanding health issues states he is otherwise feeling well. Patient denies any chest pain or shortness of breath. Patient denies any nausea vomiting or diarrhea. Related Data Home Medications Medication Instructions Recorded Confirmed Combivent Respimat 1 puff INHALATION QID 10/27/19 01/22/22 budesonide-formoterol [Symbicort] 2 puff INHALATION BID 10/27/19 01/22/22 flecainide 100 mg PO BID 10/27/19 01/22/22 fluticasone propionate 1 spray INTRANASAL DAILY PRN 10/27/19 01/22/22 isosorbide mononitrate 30 mg PO DAILY 10/27/19 01/22/22 Eliquis 2.5 mg PO BID 02/23/20 01/22/22 Perdiem Overnight Relief 30 mg PO DAILY 02/23/20 01/22/22 aspirin 81 mg PO DAILY 02/23/20 01/22/22 cholecalciferol (vitamin D3) 125 mcg PO DAILY 02/23/20 01/22/22 [Vitamin D3] nitroglycerin 0.4 mg SUBLINGUAL DIRECTED PRN 02/23/20 01/22/22 polyethylene glycol 3350 [Miralax] 17 g PO DAILY 02/23/20 01/22/22 albuterol sulfate 90 mcg/actuation See Rx Instructions .ROUTE .COMPLEX 07/12/21 01/22/22 aerosol inhaler pediatric multivitamin no.76 1 tablet PO DAILY 07/12/21 01/22/22 atenolol 50 mg tablet 50 mg PO DAILY 10/18/21 01/22/22 pantoprazole 40 mg tablet,delayed 40 mg PO QAM 02/05/22 release Allergies Allergy/AdvReac Type Severity Reaction Status Date / Time tetanus and diphtheria Allergy Severe FEVER, Verified 02/05/22 14:40 toxoids CHILLS clindamycin Allergy Unknown RASH Verified 02/05/22 14:40 amiodarone AdvReac Severe liver Verified 02/05/22 14:40 toxicity BREZTRI Allergy Severe Difficulty Uncoded 01/27/22 09:36 Breathing Review of Systems Review of Systems: CONSTITUTIONAL: Denies fever, chills, or sweats. EYES: Denies visual changes, redness, or discharge. ENT: Denies rhinorrhea, congestion, sore throat, or otalgia. CARDIOVASCULAR: Denies chest pain, palpitations, or edema. RESPIRATORY: Denies cough or dyspnea. GASTROINTESTINAL: Denies abdominal pain, nausea, vomiting, or diarrhea. GENITOURINARY: Denies dysuria or hematuria. SKIN: Contusion on right forearm MUSCULOSKELETAL: Denies back pain, joint pain, or myalgia. NEUROLOGIC: Headache PMFSH Past Medical History Medical History Atrial flutter with rapid ventricular response (~03/2017) Status post DC cardioversion. Benign prostatic hyperplasia Bladder cancer (~06/2019) Noninvasive low-grade papillary urothelial carcinoma. Bowel obstruction Chronic anemia Chronic kidney disease, stage 3 Baseline creatinine ranges between 1.3 and 1.50. Chronic obstructive pulmonary disease Chronic respiratory failure with hypoxia, on home oxygen therapy Compression fracture Chronic compression fractures in the low thoracic and lumbar spine. Coronary artery disease (~05/2016) Cardiac catheterization per Dr. Bills showed a 99% mid RCA lesion with unsuccessful PTCA as lesion was unable to be crossed. Depression with anxiety Essential hypertension Hyperlipidemia Osteoarthritis Paroxysmal atrial fibrillation Pneumonia Pulmonary embolism Tremor Surgical History Surgical History History of abdominal aortic aneurysm repair (~2003) History of cardiac cath History of cataract extraction History of
[2022-02-13 02:48] VITALS: BP 156/75; PULSE 102; RESP 20; TEMP 36.9; O2SAT 96
[2022-02-13 05:36] VITALS: BP 143/62; PULSE 75; RESP 18; O2SAT 98
[2022-02-13 07:09] VITALS: BP 163/87; PULSE 86; RESP 18; O2SAT 97
== END 2022-02-13 07:10 | disposition home or self-care (01) ==
PROVIDERS: Emergency Provider Emergency Medicine; PCP Emergency Medicine
DX: S09.90XA Unspecified injury of head, initial encounter (principal); S80.01XA Contusion of right knee, initial encounter; S50.01XA Contusion of right elbow, initial encounter; I48.92 Unspecified atrial flutter; I48.0 Paroxysmal atrial fibrillation; I12.9 Hypertensive chronic kidney disease with stage 1 through stage 4 chronic kidney disease, or unspecified chronic kidney disease; N18.30 Chronic kidney disease, stage 3 unspecified; D64.9 Anemia, unspecified; J96.11 Chronic respiratory failure with hypoxia; J43.9 Emphysema, unspecified; I25.10 Atherosclerotic heart disease of native coronary artery without angina pectoris; E78.5 Hyperlipidemia, unspecified; N40.0 Benign prostatic hyperplasia without lower urinary tract symptoms; Z99.81 Dependence on supplemental oxygen; Z85.51 Personal history of malignant neoplasm of bladder; Z86.711 Personal history of pulmonary embolism; Z87.01 Personal history of pneumonia (recurrent); Z98.49 Cataract extraction status, unspecified eye; Z87.891 Personal history of nicotine dependence; Z79.01 Long term (current) use of anticoagulants; Z79.82 Long term (current) use of aspirin; W18.39XA Other fall on same level, initial encounter; M47.812 Spondylosis without myelopathy or radiculopathy, cervical region
CPT/HCPCS: 70450; 72125; 73080; 73564; 99284

== ENCOUNTER 2022-02-23 02:45 | Inpatient (IN) | payer MEDICARE, SELFPAY ==
[2022-02-23] VITALS (56 sets, daily range): BP systolic 92–140; BP diastolic 45–90; PULSE 69–148; RESP 11–29; TEMP 35.9–36.5; O2SAT 90–100; BMI 30.7
--- NOTE | ~2022-02-23 | CT_ITS ---
EXAMINATION: CT brain wo con INDICATION: Head injury COMPARISON: 02/13/2022 TECHNIQUE: Standard unenhanced head CT. The dose-length product (DLP) was 681.00 mGy-cm. The mA was a djusted according to patient size. Iterative reconstruction technique was employed. FINDINGS: There is no acute intraparenchymal hemorrhage. No evidence of mass lesion. No evidence of a cute infarction. There is mild periventricular and subcortical hypodensity probably related to small vessel ischemic disease. There is mild prominence of the sulci and ventricles related to cerebral atr ophy. Intracranial calcified cerebral atherosclerosis is noted. There are no extra-axial collections. There is no mass effect or midline shift. Changes in the right globe are likely from ocular lens randy matheus. There is a left mastoid effusion. There is mild mucosal thickening of the paranasal sinuses and moderate opacification of the right ethmoidal air cells IMPRESSION: 1. No acute intracranial abnormality. 2. Age related findings. Reviewed, dictated and finalized at location A.
--- NOTE | ~2022-02-23 | XR_ITS ---
EXAMINATION: XR chest 1V portable INDICATION: Chest pain after fall TECHNIQUE: Portable AP chest at 0331 hours COMPARISON: 07/10/2020 FINDINGS: There are minimal chronic airspace opacities of the lung bases. Cardiomegaly is noted. Ther e is no pleural effusion or pneumothorax. IMPRESSION: 1. No acute cardiopulmonary abnormality. Reviewed, dictated and finalized at location A.
--- NOTE | ~2022-02-23 | CT_ITS ---
EXAMINATION: CT cervical spine wo con DATE: 02/23/2022 03:34 INDICATION: Head injury TECHNIQUE: Computed tomography (CT) of the cervical spine was performed without intravenous contrast. The dose-length product (DLP) was 450.10 mGy-cm. Automated exposure control and iterative reconstruc tion technique were employed. COMPARISON: 02/13/2022 FINDINGS: There is no fracture. The vertebral body heights are normal. There is severe loss of interv ertebral disc space height at C5-6 and C6-7. There is moderate loss of disc space height throughout t he remainder of the cervical spine. The odontoid is intact. There is severe multilevel facet and unco vertebral joint osteoarthritis. The prevertebral soft tissues are normal. There is emphysema visualiz ed lung apices. IMPRESSION: 1. Severe cervical spondylosis without acute findings or significant interval change. Reviewed, dictated and finalized at location A. IMPRESSION: 1. Severe cervical spondylosis without acute findings or significant interval c catalina.
--- NOTE | ~2022-02-23 | XR_ITS ---
EXAMINATION: XR wrist RT min 3V DATE: 02/23/2022 03:40 INDICATION: Right wrist pain post fall TECHNIQUE: Posteroanterior, ulnar deviation, oblique, and lateral views of the right wrist were obtai saniya. COMPARISON: none FINDINGS: Old healed fracture deformity at the distal right radius resulting an 3-4 mm ulnar positive variance. Alignment is otherwise normal. Additional old healed fracture at the neck of the right fifth metacar pal and chronic nonunited ulnar styloid avulsion fracture. No acute fracture. Polyarticular osteoarth ritis, moderate severity at the third metacarpophalangeal joint and mild is additional metacarpophala ngeal joints as well as at the triscaphe and first carpal metacarpal joints. IMPRESSION: 1. Sequela of old trauma including healed fractures of the distal radius and fifth metacarpal and chr onic nonunited ulnar styloid avulsion fracture. No acute osseous abnormality. Reviewed, dictated and finalized at location A. IMPRESSION: 1. Sequela of old trauma including healed fractures of the distal radius and fi fth metacarpal and chronic nonunited ulnar styloid avulsion fracture. No acute osseous abnormality.
--- NOTE | ~2022-02-23 | CT_ITS ---
EXAMINATION: CT abdomen pelvis wo con DATE: 02/23/2022 06:13 INDICATION: Abdominal pain post fall TECHNIQUE: Computed tomography (CT) of the abdomen and pelvis was performed without intravenous contr ast. Automated exposure control and iterative reconstruction technique were employed. The dose-length product was 1369.94 mGy-cm. COMPARISON: 01/27/2022 FINDINGS: Emphysema. Calcified left lower lobe nodule consistent with old granulomatous disease. Similar patter n of architectural distortion, linear and bandlike opacities in the bilateral lower lobes consistent with chronic atelectasis/scarring. Borderline heart size. No pericardial or pleural effusion. Tortuou s and atherosclerotic thoracic aorta. There is an infrarenal aortobiiliac endoluminal stent spanning an unchanged 6.8 x 6.6 cm distal aortic aneurysm. What was previously thought to reflect some endolea k on the prior contrast enhanced study is unchanged on the current noncontrast study consistent with calcification. Cholecystectomy clips the gallbladder fossa. Liver, spleen, pancreas and bilateral adr enal glands are normal. Atherosclerotic calcifications along the bilateral renal arteries. No nephrol ithiasis or hydronephrosis. Bilateral renal cysts the largest a 4 cm proteinaceous/hemorrhagic exophy tic cyst at the lower pole of the right kidney with identical attenuation as on the prior contrast en hanced CT. Bladder is normal. Bilateral small fat-containing inguinal hernias, right greater than lef t. There is moderate colonic diverticulosis without adjacent inflammatory change to suggest diverticu litis. Small bowel and appendix are normal. No free intraperitoneal gas or fluid. No pathologically enlarged abdominal or pelvic lymphadenopathy. Chronic compression fractures at T11 and L1. 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 IMPRESSION: 1. No significant interval change in a 6.8 x 6.6 cm stented fusiform infrarenal abdominal aortic aneu rysm. 2. Borderline heart size. 3. Emphysema. 4. Diverticulosis. 5. Small right and very small left fat-containing inguinal hernias. Reviewed, dictated and finalized at location A. IMPRESSION: 1. No significant interval change in a 6.8 x 6.6 cm stented fusiform infrarenal abdominal aortic aneurysm. 2. Borderline heart size. 3. Emphysema. 4. Diverticulosis. 5. Small right and very small left fat-containing inguinal hernias.
--- NOTE | 2022-02-23 05:07 | ECG_ITS ---
Measurements Intervals [place] Rate: 70 P: -13 [place]: 266 QRS: -47 QRSD: 186 T: 60 QT: 471 QTc: 510 Interpretive Statements SINUS RHYTHM WITH FIRST DEGREE AV BLOCK RIGHT BUNDLE BRANCH BLOCK LEFT ANTERIOR FASCICULAR BLOCK BASELINE ARTIFACT- I, II, III, AVR, AVL, AVF, V4-V6 ABNORMAL ECG Electronically Signed On 02-23-2022 6:36:17 CDT by Rob Pierre D.O.
--- NOTE | 2022-02-23 05:26 | ED.FALL ---
HPI - Fall General Chief Complaint: Fall Stated Complaint: FALL,HEAD INJURY Time Seen by Provider: 02/23/22 02:47 Source: RN notes reviewed History of Present Illness HPI Narrative: Patient presents emerged department from home via EMS for fall. Patient states he was walking the bathroom with his walker when he went to turn and fell states his unsure if he lost consciousness but does believe he hit his head states he is on blood thinners for history of atrial fibrillation he notes a skin tear over his right arm he denies any other trauma or injury he denies any chest pain, shortness of breath abdominal pain nausea or vomiting or extremity pain Related Data Home Medications Medication Instructions Recorded Confirmed Combivent Respimat 1 puff INHALATION QID 10/27/19 01/22/22 budesonide-formoterol [Symbicort] 2 puff INHALATION BID 10/27/19 01/22/22 flecainide 100 mg PO BID 10/27/19 01/22/22 fluticasone propionate 1 spray INTRANASAL DAILY PRN 10/27/19 01/22/22 isosorbide mononitrate 30 mg PO DAILY 10/27/19 01/22/22 Eliquis 2.5 mg PO BID 02/23/20 01/22/22 Perdiem Overnight Relief 30 mg PO DAILY 02/23/20 01/22/22 aspirin 81 mg PO DAILY 02/23/20 01/22/22 cholecalciferol (vitamin D3) 125 mcg PO DAILY 02/23/20 01/22/22 [Vitamin D3] nitroglycerin 0.4 mg SUBLINGUAL DIRECTED PRN 02/23/20 01/22/22 polyethylene glycol 3350 [Miralax] 17 g PO DAILY 02/23/20 01/22/22 albuterol sulfate 90 mcg/actuation See Rx Instructions .ROUTE .COMPLEX 07/12/21 01/22/22 aerosol inhaler pediatric multivitamin no.76 1 tablet PO DAILY 07/12/21 01/22/22 pantoprazole 40 mg tablet,delayed 40 mg PO QAM 02/05/22 release Allergies Allergy/AdvReac Type Severity Reaction Status Date / Time tetanus and diphtheria Allergy Severe FEVER, Verified 02/05/22 14:40 toxoids CHILLS clindamycin Allergy Unknown RASH Verified 02/05/22 14:40 amiodarone AdvReac Severe liver Verified 02/05/22 14:40 toxicity BREZTRI Allergy Severe Difficulty Uncoded 01/27/22 09:36 Breathing Review of Systems Review of Systems: Gen.: Denies fevers or chills Eyes: Denies eye pain or visual change ENT: Denies congestion Respiratory: Denies shortness of breath or cough CV: Denies chest pain or palpitations GI: Denies abdominal pain nausea, emesis or Musculoskeletal: Denies back pain or muscle pain Neuro: Denies numbness, tingling, weakness or focal weakness Skin: Reports skin tear Except as documented, all other systems reviewed and negative [facility] Past Medical History Medical History Atrial flutter with rapid ventricular response (~03/2017) Status post DC cardioversion. Benign prostatic hyperplasia Bladder cancer (~06/2019) Noninvasive low-grade papillary urothelial carcinoma. Bowel obstruction Chronic anemia Chronic kidney disease, stage 3 Baseline creatinine ranges between 1.3 and 1.50. Chronic obstructive pulmonary disease Chronic respiratory failure with hypoxia, on home oxygen therapy Compression fracture Chronic compression fractures in the low thoracic and lumbar spine. Coronary artery disease (~05/2016) Cardiac catheterization per Dr. Bills showed a 99% mid RCA lesion with unsuccessful PTCA as lesion was unable to be crossed. Depression with anxiety Essential hypertension Hyperlipidemia Osteoarthritis Paroxysmal atrial fibrillation Pneumonia Pulmonary embolism Tremor Surgical History Surgical History History of abdominal aortic aneurysm repair (~2003) History of cardiac cath History of cataract extraction History of cholecystectomy History of inguinal hernia repair Status post surgical removal and fulguration of bladder neoplasm (~06/2019) Family History Family History Mother Acute myocardial infarction Father Aortic aneurysm Sibling Aortic aneurysm Social History Social Hi
[2022-02-23 05:31] LABS: Basophils Percent Auto 0.4 % (0.2-1.2); Eosinophils Absolute Auto 0.2 K/mm3 (0-0.3); Eosinophils Percent Auto 3.2 % (0-4.4); Hematocrit 26.7 % (42.0-52.0); Hemoglobin 8.2 g/dL (14.0-18.0); Immature Granulocyte Absolute 0.02 K/mm3 (0.00-0.031); Immature Granulocyte Percent A 0.4 % (0-0.5); Lymphocytes Absolute Auto 0.69 K/mm3 (0.9-3.2); Lymphocytes Percent Auto 12.2 % (18.3-44.2); Mean Corpuscular HGB Conc 30.7 g/dl (32-36); Mean Corpuscular Hemoglobin 29.5 pg (26-34); Mean Platelet Volume 9.4 fl (7.4-10.4); Monocytes Absolute Auto 0.5 K/mm3 (0.1-0.6); Monocytes Percent Auto 8.3 % (2.6-8.5); Neutrophils Absolute Auto 4.3 K/mm3 (1.3-6.7); Neutrophils Percent Auto 75.5 % (45.5-73.1); Platelet Count Result 165 k/mm3 (150-375); Red Blood Count 2.78 M/mm3 (4.6-6.20); Red Cell Distribution Width 13.7 % (11.5-14.5); White Blood Count 5.6 K/mm3 (4.5-10.0)
[2022-02-23] MEDS: SODIUM CHLORIDE 0.9% IV 1,000 ML 999 ML IV CONT (05:38)
[2022-02-23 05:49] LABS: Alanine Aminotransferase 13 U/L (6-50); Alkaline Phosphatase 86 U/L (38-126); Aspartate Amino Transferase 22 U/L (17-59); Bilirubin,Total 0.4 mg/dL (0.2-1.3); Blood Urea Nitrogen 40 mg/dL (9-20); Calcium 8.9 mg/dL (8.4-10.2); Carbon Dioxide > 40 mmol/L (22-30); Chloride 91 mmol/L (98-107); Estimated CRCL calculation 37 ml/min; Estimated Glomerular Filt Rate 39; Glucose 101 mg/dL (65-110); Potassium 2.6 mmol/L (3.4-5.0); Sodium 139 mmol/L (137-145)
[2022-02-23 05:55] LABS: INR 1.3
[2022-02-23 05:56] LABS: Partial Thromboplastin Time 29.6 SECONDS (22.3-36.8)
[2022-02-23 06:08] LABS: Magnesium 1.9 mg/dL (1.6-2.3)
[2022-02-23 06:37] LABS: SARS-CoV-2 RNA PCR Negative
[2022-02-23] MEDS: POTASSIUM CHLORIDE 20 MEQ TABLET 40 MEQ PO ×2 (06:44→15:35)
[2022-02-23] MEDS: KCL 40 MEQ/WATER 100 ML 100 ML 25 ML IVPB (06:45)
[2022-02-23 06:47] LABS: Appearance Urine Clear (Clear); Bilirubin Urine Negative (Negative); Blood Urine Negative (Negative); Color Urine Yellow (Yellow); Glucose Urine UA Negative (Negative); Ketones Urine Negative (Negative); Leukocyte Esterase Ur Negative LEU/UL (Negative); Nitrate Urine Negative (Negative); Protein Urine Negative (Negative); Urobilinogen Urine 0.2 mg/dL (<2.0); pH Urine 6.5 (5.0-9.0)
[2022-02-23 06:55] LABS: Mucus Urine Rare /lpf; RBC Urine 0-2 /hpf (0-2); WBC Urine 0-3 /hpf
[2022-02-23 06:59] LABS: Add Urine Microscopic? NO
--- NOTE | 2022-02-23 07:20 | PC.NURSE ---
Report received from MEGGAN Anthony. Pt resting comfortably on stretcher, denies needs at present. Daughter at bedside also denies needs. Explained awaiting bed assignment. KCL gtt running without difficulty. SR with 1 degree AVB on monitor.
--- NOTE | 2022-02-23 08:13 | PC.NURSE ---
Pt moved to boarded status due to bed availability. Pt and family updated per Mookie Thompson RN.
--- NOTE | 2022-02-23 08:38 | PC.NURSE ---
ASUNCION faxed to [address] [place] [address].
--- NOTE | 2022-02-23 09:10 | PC.NURSE ---
Attempt to call report, RN unavailable and will call back.
--- NOTE | 2022-02-23 09:12 | PC.NURSE ---
Heart Healthy diet ordered for patient.
--- NOTE | 2022-02-23 09:26 | PC.NURSE ---
Attempt to call report. Floor unable to take at this time and will call back.
--- NOTE | 2022-02-23 09:45 | ADMGEN ---
This patient, Kenan Grubbs, was admitted to 2 Medical Room 259-. Patient/family oriented to hospital policies and general routines including ID bracelet, bed and alarms, visiting hours, pain management, procedures, bathroom and other care routines, personal items, smoking policy, room service/diet, and visiting hours. Information on how to activate the Rapid Response Team has been discussed. Patient/Family are encouraged to report perceived risks to care and to ask questions if they do not understand what they are told or what they should do.
[2022-02-23 14:31] LABS: Potassium 3.3 mmol/L (3.4-5.0)
--- NOTE | 2022-02-23 14:32 | PM.IMHP ---
H&P: HPI History of Present Illness Date/Time: 02/23/22 14:32 Chief Complaint: Fall Narrative: this is an 81-year-old male who presents via EMS for fall. He was walking to the bathroom at night when he is not sure what happened but fell and hit is head. He is not sure if he lost consciousness. He reports that he has been feeling weak over the past several months. He has been using walker since past few months. He lives at home with his daughter for past several years. He denies any other injuries to any other areas. He is on a blood thinner for his history of atrial fibrillation. He denies any chest pain or shortness of breath nausea vomiting abdominal pain. In the ER he was noted to have severe hypokalemia with a potassium of 2.6 and hence getting admitted for further evaluation under observation status. He received 40 of p.o. potassium and 40 of IV potassium level ordered from the ER. He is also on chronic home oxygen for his underlying history of COPD. Review of Systems Review of Systems: - CONSTITUTIONAL: Denies weight loss, fever and chills. - HEENT: Denies changes in vision and hearing - RESPIRATORY: Denies SOB and cough. - CV: Denies palpitations and CP. - GI: Denies abdominal pain, nausea, vomiting and diarrhea. - : Denies dysuria and urinary frequency. - MSK: Denies myalgia and joint pain. - SKIN: Denies rash and pruritus. - NEUROLOGICAL: Denies headache and syncope. - PSYCHIATRIC: Denies recent changes in mood. Denies anxiety and depression. All systems reviewed & are unremarkable except as noted in HPI and below Constitutional: Constitutional: Reports fatigue and Reports weakness Neurologic: Reports weakness Endocrine: Endocrine: Reports fatigue [facility] Past Medical History Medical History Atrial flutter with rapid ventricular response (~03/2017) Status post DC cardioversion. Benign prostatic hyperplasia Bladder cancer (~06/2019) Noninvasive low-grade papillary urothelial carcinoma. Bowel obstruction Chronic anemia Chronic kidney disease, stage 3 Baseline creatinine ranges between 1.3 and 1.50. Chronic obstructive pulmonary disease Chronic respiratory failure with hypoxia, on home oxygen therapy Compression fracture Chronic compression fractures in the low thoracic and lumbar spine. Coronary artery disease (~05/2016) Cardiac catheterization per Dr. Bills showed a 99% mid RCA lesion with unsuccessful PTCA as lesion was unable to be crossed. Depression with anxiety Essential hypertension Hyperlipidemia Osteoarthritis Paroxysmal atrial fibrillation Pneumonia Pulmonary embolism Tremor Surgical History Surgical History History of abdominal aortic aneurysm repair (~2003) History of cardiac cath History of cataract extraction History of cholecystectomy History of inguinal hernia repair Status post surgical removal and fulguration of bladder neoplasm (~06/2019) Family History Family History Mother Acute myocardial infarction Father Aortic aneurysm Sibling Aortic aneurysm Social History Social History Social History: The patient lives in [place]. He is . His daughter lives at home with him. 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 He was a heavy smoker, up to 2 packs of cigarettes per day for 45 years, and he ultimately quit in 1999. He denies alcohol and drug abuse. He designates his daughter, Brandy Watt, as his surrogate decision maker and he wishes to be a full code. Smoking status: Former smoker Alcohol intake: never Substance use: never Substance use type: does not use Additional living arrangements comments: Lives at home with daughter Gender identity (if verbalized by the patient): Male Spiritual care concerns: No
[2022-02-23] MEDS: APIXABAN 2.5 MG TABLET PO (17:10)
[2022-02-23] MEDS: FLECAINIDE ACETATE 100 MG TABLET PO (17:10)
[2022-02-23] MEDS: FLUTICASONE/SALMETEROL 115-21 MCG INHALER 1 PUFF 2 PUFF INHALATION (21:20)
[2022-02-23 23:55] LABS: Anion Gap 5 mmol/L (8-16); Blood Urea Nitrogen 35 mg/dL (9-20); Calcium 8.4 mg/dL (8.4-10.2); Carbon Dioxide 39 mmol/L (22-30); Chloride 96 mmol/L (98-107); Estimated CRCL calculation 41 ml/min; Estimated Glomerular Filt Rate 45; Glucose 91 mg/dL (65-110); Magnesium 1.8 mg/dL (1.6-2.3); Potassium 3.3 mmol/L (3.4-5.0); Sodium 140 mmol/L (137-145)
[2022-02-24] VITALS (15 sets, daily range): BP systolic 107–135; BP diastolic 51–61; PULSE 69–82; RESP 18–20; TEMP 35.8–36.6; O2SAT 95–99
[2022-02-24 05:51] LABS: Basophils Percent Auto 0.4 % (0.2-1.2); Eosinophils Absolute Auto 0.2 K/mm3 (0-0.3); Hematocrit 29.2 % (42.0-52.0); Hemoglobin 8.9 g/dL (14.0-18.0); Immature Granulocyte Absolute 0.02 K/mm3 (0.00-0.031); Immature Granulocyte Percent A 0.4 % (0-0.5); Lymphocytes Absolute Auto 0.69 K/mm3 (0.9-3.2); Lymphocytes Percent Auto 14.4 % (18.3-44.2); Mean Corpuscular HGB Conc 30.5 g/dl (32-36); Mean Corpuscular Hemoglobin 29.8 pg (26-34); Mean Corpuscular Volume 97.7 fl (80-100); Mean Platelet Volume 9.5 fl (7.4-10.4); Monocytes Absolute Auto 0.5 K/mm3 (0.1-0.6); Monocytes Percent Auto 10.8 % (2.6-8.5); Neutrophils Absolute Auto 3.3 K/mm3 (1.3-6.7); Platelet Count Result 178 k/mm3 (150-375); Red Blood Count 2.99 M/mm3 (4.6-6.20); Red Cell Distribution Width 13.6 % (11.5-14.5); White Blood Count 4.8 K/mm3 (4.5-10.0)
[2022-02-24 05:55] LABS: Alanine Aminotransferase 13 U/L (6-50); Albumin Level 3.2 g/dL (3.5-5.1); Alkaline Phosphatase 92 U/L (38-126); Aspartate Amino Transferase 25 U/L (17-59); Bilirubin,Total 0.5 mg/dL (0.2-1.3); Blood Urea Nitrogen 32 mg/dL (9-20); Calcium 8.6 mg/dL (8.4-10.2); Carbon Dioxide > 40 mmol/L (22-30); Chloride 96 mmol/L (98-107); Estimated CRCL calculation 41 ml/min; Estimated Glomerular Filt Rate 45; Glucose 90 mg/dL (65-110); Potassium 3.4 mmol/L (3.4-5.0); Sodium 141 mmol/L (137-145)
[2022-02-24 07:30] LABS: Glucose Point of Care 80 mg/dl (65-105)
[2022-02-24] MEDS: polyethylene glycoL 3350 17 GM POWD.PACK PO (08:22)
[2022-02-24] MEDS: ASPIRIN 81 MG CHEWABLE TABLET PO (08:23)
[2022-02-24] MEDS: CHOLECALCIFEROL 1,000 UNITS TABLET 5000 UNITS PO (08:23)
[2022-02-24] MEDS: SENNOSIDES 8.6 MG TABLET 17.2 MG PO (08:23)
[2022-02-24] MEDS: FLUTICASONE PROPIONATE 0.05% NA SPR 16 GM BTL (*BKC) 1 SPRAY NASAL (08:23)
[2022-02-24] MEDS: TRIAMTERENE 37.5 MG/HCTZ 25 MG (MAXZIDE) TABLET 1 TAB PO (08:24)
[2022-02-24] MEDS: atenoloL 12.5 MG TABLET PO (08:24)
[2022-02-24] MEDS: ISOSORBIDE MONONITRATE 30 MG TAB.ER.24H PO (08:24)
[2022-02-24] MEDS: MONTELUKAST SODIUM 10 MG TABLET PO (08:24)
[2022-02-24] MEDS: FLECAINIDE ACETATE 100 MG TABLET PO ×2 (08:24→16:21)
[2022-02-24] MEDS: PANTOPRAZOLE 40 MG TABLET PO (08:24)
[2022-02-24] MEDS: POTASSIUM CHLORIDE 20 MEQ TABLET.ER PO (08:24)
[2022-02-24] MEDS: MULTIVITS W-FE,MIN CHEWABLE TABLET 1 TABLET PO (08:24)
[2022-02-24] MEDS: FUROSEMIDE 40 MG TABLET PO (08:25)
[2022-02-24] MEDS: APIXABAN 2.5 MG TABLET PO ×2 (08:25→16:22)
[2022-02-24] MEDS: FLUTICASONE/SALMETEROL 115-21 MCG INHALER 1 PUFF 2 PUFF INHALATION ×2 (09:40→21:01)
--- NOTE | 2022-02-24 10:32 | PM.IMPN ---
Progress Note: A&P Assessment and Plan (1) Acute hypokalemia: Code(s): E87.6 - Hypokalemia Status: Acute (2) Anemia: Code(s): D64.9 - Anemia, unspecified Status: Acute (3) Contusion of head: Code(s): S00.93XA - Contusion of unspecified part of head, initial encounter Status: Acute (4) Frequent falls: Code(s): R29.6 - Repeated falls Status: Acute (5) COPD (chronic obstructive pulmonary disease): Qualifiers: COPD type: unspecified COPD Qualified Code(s): J44.9 - Chronic obstructive pulmonary disease, unspecified Code(s): J44.9 - Chronic obstructive pulmonary disease, unspecified Status: Acute (6) Chronic anemia: Code(s): D64.9 - Anemia, unspecified Status: Acute (7) Coronary artery disease: Onset Date: ~05/2016 Qualifiers: Coronary Disease-Associated Artery/Lesion type: [place] artery [place] vs. transplanted heart: [place] heart Associated angina: without angina Qualified Code(s): I25.10 - Atherosclerotic heart disease of [place] coronary artery without angina pectoris Code(s): I25.10 - Atherosclerotic heart disease of [place] coronary artery without angina pectoris Status: Acute (8) Essential hypertension: Code(s): I10 - Essential (primary) hypertension Status: Acute (9) Chronic respiratory failure with hypoxia, on home oxygen therapy: Code(s): J96.11 - Chronic respiratory failure with hypoxia; Z99.81 - Dependence on supplemental oxygen Status: Acute (10) Paroxysmal atrial fibrillation: Code(s): I48.0 - Paroxysmal atrial fibrillation Status: Acute (11) Chronic kidney disease, stage 3: Qualifiers: Chronic kidney disease stage 3 subtype: stage 3b (GFR 30-44) Qualified Code(s): N18.32 - Chronic kidney disease, stage 3b Code(s): N18.3 - Chronic kidney disease, stage 3 (moderate) Status: Acute (12) Chronic anticoagulation: Code(s): Z79.01 - medical terminologist (current) use of anticoagulants Status: Acute (13) History of AAA (abdominal aortic aneurysm) repair: Code(s): Z98.890 - Other specified postprocedural states Status: Acute Additional Plan Generalized weakness PT OT to see recommends home health Frequent falls CT head negative CT cervical spine with severe cervical spondylosis without acute findings hypokalemia replace and monitor magnesium level is normal Head contusion Chronic respiratory failure on home oxygen at baseline COPD Not in exacerbation Coronary artery disease Chronic anticoagulation paroxysmal atrial fibrillation on Eliquis Hypertension stable home medication Anxiety depression Chronic tremor Chronic anemia mildly lower than previous levels. Hemoccult done in the ER was negative no signs of bleeding and hemoglobin stable Chronic kidney disease stage 3 baseline creatinine in mid 1s History abdominal aortic aneurysm status post repair DVT prophylaxis already on Eliquis Code status :full code discussed with the patient Subjective Date/time seen: 02/24/22 10:32 Interval history: HPI:this is an 81-year-old male who presents via EMS for fall. He was walking to the bathroom at night when he is not sure what happened but fell and hit is head. He is not sure if he lost consciousness. He reports that he has been feeling weak over the past several months. He has been using walker since past few months. He lives at home with his daughter for past several years. He denies any other injuries to any other areas. He is on a blood thinner for his history of atrial fibrillation. He denies any chest pain or shortness of breath nausea vomiting abdominal pain. In the ER he was noted to have severe hypokalemia with a potassium of 2.6 and hence getting admitted for further evaluation under observation status. He received 40 of p.o. potassium and 40 of IV potassium level ordered from the ER. He is also on ch
[2022-02-24] MEDS: POTASSIUM CHLORIDE 20 MEQ TABLET 40 MEQ PO (11:26)
[2022-02-25] VITALS (15 sets, daily range): BP systolic 111–137; BP diastolic 57–69; PULSE 68–100; RESP 18–21; TEMP 36.1–36.8; O2SAT 95–100
[2022-02-25 05:44] LABS: Basophils Percent Auto 0.5 % (0.2-1.2); Eosinophils Absolute Auto 0.3 K/mm3 (0-0.3); Eosinophils Percent Auto 6.1 % (0-4.4); Hematocrit 26.1 % (42.0-52.0); Hemoglobin 7.9 g/dL (14.0-18.0); Immature Granulocyte Absolute 0.01 K/mm3 (0.00-0.031); Immature Granulocyte Percent A 0.2 % (0-0.5); Lymphocytes Absolute Auto 0.62 K/mm3 (0.9-3.2); Lymphocytes Percent Auto 14.6 % (18.3-44.2); Mean Corpuscular HGB Conc 30.3 g/dl (32-36); Mean Corpuscular Hemoglobin 29.7 pg (26-34); Mean Corpuscular Volume 98.1 fl (80-100); Mean Platelet Volume 9.5 fl (7.4-10.4); Monocytes Absolute Auto 0.5 K/mm3 (0.1-0.6); Monocytes Percent Auto 11.8 % (2.6-8.5); Neutrophils Absolute Auto 2.8 K/mm3 (1.3-6.7); Neutrophils Percent Auto 66.8 % (45.5-73.1); Platelet Count Result 157 k/mm3 (150-375); Red Blood Count 2.66 M/mm3 (4.6-6.20); Red Cell Distribution Width 13.6 % (11.5-14.5); White Blood Count 4.2 K/mm3 (4.5-10.0)
[2022-02-25 05:48] LABS: Alanine Aminotransferase 11 U/L (6-50); Alkaline Phosphatase 79 U/L (38-126); Aspartate Amino Transferase 21 U/L (17-59); Bilirubin,Total 0.4 mg/dL (0.2-1.3); Blood Urea Nitrogen 29 mg/dL (9-20); Calcium 8.5 mg/dL (8.4-10.2); Carbon Dioxide > 40 mmol/L (22-30); Chloride 93 mmol/L (98-107); Estimated CRCL calculation 38 ml/min; Estimated Glomerular Filt Rate 42; Glucose 93 mg/dL (65-110); Magnesium 1.9 mg/dL (1.6-2.3); Potassium 3.2 mmol/L (3.4-5.0); Sodium 137 mmol/L (137-145)
[2022-02-25] MEDS: FLUTICASONE/SALMETEROL 115-21 MCG INHALER 1 PUFF 2 PUFF INHALATION ×2 (07:55→19:50)
[2022-02-25] MEDS: FLECAINIDE ACETATE 100 MG TABLET PO ×2 (08:19→16:36)
[2022-02-25] MEDS: CHOLECALCIFEROL 1,000 UNITS TABLET 5000 UNITS PO (08:19)
[2022-02-25] MEDS: MONTELUKAST SODIUM 10 MG TABLET PO (08:20)
[2022-02-25] MEDS: SENNOSIDES 8.6 MG TABLET 17.2 MG PO (08:20)
[2022-02-25] MEDS: atenoloL 12.5 MG TABLET PO (08:20)
[2022-02-25] MEDS: ISOSORBIDE MONONITRATE 30 MG TAB.ER.24H PO (08:20)
[2022-02-25] MEDS: MULTIVITS W-FE,MIN CHEWABLE TABLET 1 TABLET PO (08:20)
[2022-02-25] MEDS: TRIAMTERENE 37.5 MG/HCTZ 25 MG (MAXZIDE) TABLET 1 TAB PO (08:21)
[2022-02-25] MEDS: POTASSIUM CHLORIDE 20 MEQ TABLET.ER PO (08:21)
[2022-02-25] MEDS: FUROSEMIDE 40 MG TABLET PO (08:21)
[2022-02-25] MEDS: ASPIRIN 81 MG CHEWABLE TABLET PO (08:21)
[2022-02-25] MEDS: APIXABAN 2.5 MG TABLET PO ×2 (08:21→16:35)
[2022-02-25] MEDS: PANTOPRAZOLE 40 MG TABLET PO (08:21)
[2022-02-25] MEDS: polyethylene glycoL 3350 17 GM POWD.PACK PO (08:22)
[2022-02-25] MEDS: POTASSIUM CHLORIDE 20 MEQ TABLET 40 MEQ PO (09:15)
[2022-02-25 09:29] LABS: Immature Reticulocyte Fraction 17.1 % (3.0-15.9); Reticulocyte Hemoglobin Conten 29.5 pg (28.2-35.7); Reticulocyte Percent 1.96 % (0.7-4.3); Reticulocytes Absolute 0.06 B/L (32.2-175.7)
[2022-02-25 10:20] LABS: Iron 28 ug/dL (49-181)
[2022-02-25 10:30] LABS: Percent Iron Saturation 8 % (20-50)
[2022-02-25 10:45] LABS: Folic Acid > 20.0 ng/mL (2.76->20)
--- NOTE | 2022-02-25 12:48 | PM.IMPN ---
Progress Note: A&P Assessment and Plan (1) Acute hypokalemia: Code(s): E87.6 - Hypokalemia Status: Acute (2) Anemia: Code(s): D64.9 - Anemia, unspecified Status: Acute (3) Contusion of head: Code(s): S00.93XA - Contusion of unspecified part of head, initial encounter Status: Acute (4) Frequent falls: Code(s): R29.6 - Repeated falls Status: Acute (5) COPD (chronic obstructive pulmonary disease): Qualifiers: COPD type: unspecified COPD Qualified Code(s): J44.9 - Chronic obstructive pulmonary disease, unspecified Code(s): J44.9 - Chronic obstructive pulmonary disease, unspecified Status: Acute (6) Chronic anemia: Code(s): D64.9 - Anemia, unspecified Status: Acute (7) Coronary artery disease: Onset Date: ~05/2016 Qualifiers: Coronary Disease-Associated Artery/Lesion type: [place] artery [place] vs. transplanted heart: [place] heart Associated angina: without angina Qualified Code(s): I25.10 - Atherosclerotic heart disease of [place] coronary artery without angina pectoris Code(s): I25.10 - Atherosclerotic heart disease of [place] coronary artery without angina pectoris Status: Acute (8) Essential hypertension: Code(s): I10 - Essential (primary) hypertension Status: Acute (9) Chronic respiratory failure with hypoxia, on home oxygen therapy: Code(s): J96.11 - Chronic respiratory failure with hypoxia; Z99.81 - Dependence on supplemental oxygen Status: Acute (10) Paroxysmal atrial fibrillation: Code(s): I48.0 - Paroxysmal atrial fibrillation Status: Acute (11) Chronic kidney disease, stage 3: Qualifiers: Chronic kidney disease stage 3 subtype: stage 3b (GFR 30-44) Qualified Code(s): N18.32 - Chronic kidney disease, stage 3b Code(s): N18.3 - Chronic kidney disease, stage 3 (moderate) Status: Acute (12) Chronic anticoagulation: Code(s): Z79.01 - coke still cleaner (current) use of anticoagulants Status: Acute (13) History of AAA (abdominal aortic aneurysm) repair: Code(s): Z98.890 - Other specified postprocedural states Status: Acute Additional Plan Generalized weakness PT OT to see recommends home health Frequent falls CT head negative CT cervical spine with severe cervical spondylosis without acute findings hypokalemia replace and monitor magnesium level is normal Head contusion Chronic respiratory failure on home oxygen at baseline COPD Not in exacerbation Coronary artery disease Chronic anticoagulation paroxysmal atrial fibrillation on Eliquis Hypertension stable home medication Anxiety depression Chronic tremor Chronic anemia mildly lower than previous levels. Hemoccult done in the ER was negative no signs of bleeding and hemoglobin stable. Hemoglobin dropped to 7.9 today will check iron profile ferritin vitamin B12 reticulocyte count folate. Continue to monitor H&H no active signs of bleeding FOBT ordered as well Chronic kidney disease stage 3 baseline creatinine in mid 1s History abdominal aortic aneurysm status post repair DVT prophylaxis already on Eliquis Code status :full code discussed with the patient Subjective Date/time seen: 02/25/22 12:48 Interval history: HPI:this is an 81-year-old male who presents via EMS for fall. He was walking to the bathroom at night when he is not sure what happened but fell and hit is head. He is not sure if he lost consciousness. He reports that he has been feeling weak over the past several months. He has been using walker since past few months. He lives at home with his daughter for past several years. He denies any other injuries to any other areas. He is on a blood thinner for his history of atrial fibrillation. He denies any chest pain or shortness of breath nausea vomiting abdominal pain. In the ER he was noted to have severe hypokalemia with a potassium of 2
[2022-02-26] VITALS (7 sets, daily range): BP systolic 134; BP diastolic 61; PULSE 75–78; RESP 20; TEMP 36.5; O2SAT 96–99
[2022-02-26 06:18] LABS: Basophils Percent Auto 0.6 % (0.2-1.2); Eosinophils Absolute Auto 0.3 K/mm3 (0-0.3); Eosinophils Percent Auto 6.3 % (0-4.4); Hematocrit 28.3 % (42.0-52.0); Hemoglobin 8.9 g/dL (14.0-18.0); Immature Granulocyte Absolute 0.03 K/mm3 (0.00-0.031); Immature Granulocyte Percent A 0.6 % (0-0.5); Lymphocytes Absolute Auto 0.86 K/mm3 (0.9-3.2); Lymphocytes Percent Auto 17.3 % (18.3-44.2); Mean Corpuscular HGB Conc 31.4 g/dl (32-36); Mean Corpuscular Hemoglobin 30.1 pg (26-34); Mean Corpuscular Volume 95.6 fl (80-100); Monocytes Absolute Auto 0.5 K/mm3 (0.1-0.6); Monocytes Percent Auto 10.7 % (2.6-8.5); Neutrophils Absolute Auto 3.2 K/mm3 (1.3-6.7); Neutrophils Percent Auto 64.5 % (45.5-73.1); Platelet Count Result 178 k/mm3 (150-375); Red Blood Count 2.96 M/mm3 (4.6-6.20); Red Cell Distribution Width 13.3 % (11.5-14.5)
[2022-02-26 06:41] LABS: Alanine Aminotransferase 12 U/L (6-50); Albumin Level 3.4 g/dL (3.5-5.1); Alkaline Phosphatase 83 U/L (38-126); Aspartate Amino Transferase 23 U/L (17-59); Bilirubin,Total 0.3 mg/dL (0.2-1.3); Blood Urea Nitrogen 29 mg/dL (9-20); Calcium 8.6 mg/dL (8.4-10.2); Carbon Dioxide > 40 mmol/L (22-30); Chloride 90 mmol/L (98-107); Estimated CRCL calculation 38 ml/min; Estimated Glomerular Filt Rate 42; Glucose 95 mg/dL (65-110); Potassium 3.5 mmol/L (3.4-5.0); Sodium 137 mmol/L (137-145)
[2022-02-26] MEDS: polyethylene glycoL 3350 17 GM POWD.PACK PO (08:08)
[2022-02-26] MEDS: CHOLECALCIFEROL 1,000 UNITS TABLET 5000 UNITS PO (08:08)
[2022-02-26] MEDS: ASPIRIN 81 MG CHEWABLE TABLET PO (08:09)
[2022-02-26] MEDS: PANTOPRAZOLE 40 MG TABLET PO (08:09)
[2022-02-26] MEDS: APIXABAN 2.5 MG TABLET PO (08:09)
[2022-02-26] MEDS: SENNOSIDES 8.6 MG TABLET 17.2 MG PO (08:09)
[2022-02-26] MEDS: MULTIVITS W-FE,MIN CHEWABLE TABLET 1 TABLET PO (08:09)
[2022-02-26] MEDS: FLECAINIDE ACETATE 100 MG TABLET PO (08:09)
[2022-02-26] MEDS: ISOSORBIDE MONONITRATE 30 MG TAB.ER.24H PO (08:09)
[2022-02-26] MEDS: POTASSIUM CHLORIDE 20 MEQ TABLET.ER PO (08:09)
[2022-02-26] MEDS: FUROSEMIDE 40 MG TABLET PO (08:09)
[2022-02-26] MEDS: TRIAMTERENE 37.5 MG/HCTZ 25 MG (MAXZIDE) TABLET 1 TAB PO (08:09)
[2022-02-26] MEDS: MONTELUKAST SODIUM 10 MG TABLET PO (08:09)
[2022-02-26] MEDS: atenoloL 12.5 MG TABLET PO (08:10)
[2022-02-26] MEDS: FLUTICASONE/SALMETEROL 115-21 MCG INHALER 1 PUFF 2 PUFF INHALATION (08:59)
[2022-02-26] MEDS: POTASSIUM CHLORIDE 20 MEQ TABLET 40 MEQ PO (09:41)
--- NOTE | 2022-02-26 09:45 | PM.DS ---
DS: Admitting Diagnosis Discharge Date 02/26/2022 Admitting Diagnosis weakness DS: Discharge Diagnosis Discharge Diagnosis (1) Acute hypokalemia: Code(s): E87.6 - Hypokalemia Status: Acute (2) Anemia: Code(s): D64.9 - Anemia, unspecified Status: Acute (3) Contusion of head: Code(s): S00.93XA - Contusion of unspecified part of head, initial encounter Status: Acute (4) Frequent falls: Code(s): R29.6 - Repeated falls Status: Acute (5) COPD (chronic obstructive pulmonary disease): Qualifiers: COPD type: unspecified COPD Qualified Code(s): J44.9 - Chronic obstructive pulmonary disease, unspecified Code(s): J44.9 - Chronic obstructive pulmonary disease, unspecified Status: Acute (6) Chronic anemia: Code(s): D64.9 - Anemia, unspecified Status: Acute (7) Coronary artery disease: Onset Date: ~05/2016 Qualifiers: Coronary Disease-Associated Artery/Lesion type: [place] artery [place] vs. transplanted heart: [place] heart Associated angina: without angina Qualified Code(s): I25.10 - Atherosclerotic heart disease of [place] coronary artery without angina pectoris Code(s): I25.10 - Atherosclerotic heart disease of [place] coronary artery without angina pectoris Status: Acute (8) Essential hypertension: Code(s): I10 - Essential (primary) hypertension Status: Acute (9) Chronic respiratory failure with hypoxia, on home oxygen therapy: Code(s): J96.11 - Chronic respiratory failure with hypoxia; Z99.81 - Dependence on supplemental oxygen Status: Acute (10) Paroxysmal atrial fibrillation: Code(s): I48.0 - Paroxysmal atrial fibrillation Status: Acute (11) Chronic kidney disease, stage 3: Qualifiers: Chronic kidney disease stage 3 subtype: stage 3b (GFR 30-44) Qualified Code(s): N18.32 - Chronic kidney disease, stage 3b Code(s): N18.3 - Chronic kidney disease, stage 3 (moderate) Status: Acute (12) Chronic anticoagulation: Code(s): Z79.01 - continuous churn buttermaker (current) use of anticoagulants Status: Acute (13) History of AAA (abdominal aortic aneurysm) repair: Code(s): Z98.890 - Other specified postprocedural states Status: Acute DS: Summary Hospital Course Hospital Course: patient presented with generalized weakness and frequent falls. CT head cervical spine negative for any acute findings. CT cervical spine does show severe cervical spondylosis. He was noted to have hypokalemia. He had recently stopped his potassium supplement. Hypokalemia was treated with replacement and monitored. His regular potassium supplement was restarted. Because of the fall he had minor head contusion. He did have acute on chronic anemia. Hemoccult done in the ER was negative for GI bleed. He has H&H was monitored through the hospital stay and remained stable without any further drop. He does have history of chronic anemia likely related to chronic kidney disease. He should follow-up with printing technician for ongoing treatment and evaluation. His kidney disease remained stable throughout the hospital stay. He also has chronic tremor. He also has history of abdominal aortic aneurysm and had stented in the past. The size of the aneurysm noted to be stable. He had recently seen a vascular surgery with regard to this finding. He was evaluated by physical therapy and occupational therapy during the hospital stay and required home health to be continued at discharge. Status at Discharge Overall status at discharge: patient is progressing back to baseline Time Spent with Patient Time attestation: Total time spent providing and/or coordinating discharge services: Exam Narrative: APPEARANCE: No acute distress, nontoxic, resting in bed EYES: EOMI PERRLA HEENT: Normocephalic, ecchymosis to right forehead Neck supple nontender RESPIRATORY: No respiratory distress
== END 2022-02-26 11:09 | disposition home health service (06) | DRG 641 ==
LOC: ANHED 06:56 → ANH3MEDSUR 08:07 → ANH2MED 09:54
PROVIDERS: Physician Assistant; Admitting Provider Internal Medicine; Emergency Provider Emergency Medicine; PCP Emergency Medicine; Visit Provider Internal Medicine
DX: E87.6 Hypokalemia (principal); J96.11 Chronic respiratory failure with hypoxia; I12.9 Hypertensive chronic kidney disease with stage 1 through stage 4 chronic kidney disease, or unspecified chronic kidney disease; N18.32 Chronic kidney disease, stage 3b; D63.1 Anemia in chronic kidney disease; W19.XXXA Unspecified fall, initial encounter; R29.6 Repeated falls; Z20.822 Contact with and (suspected) exposure to COVID-19; J44.9 Chronic obstructive pulmonary disease, unspecified; I25.10 Atherosclerotic heart disease of native coronary artery without angina pectoris; I48.0 Paroxysmal atrial fibrillation; S00.93XA Contusion of unspecified part of head, initial encounter; S51.801A Unspecified open wound of right forearm, initial encounter; F41.8 Other specified anxiety disorders; M47.892 Other spondylosis, cervical region; Z99.81 Dependence on supplemental oxygen; Z98.890 Other specified postprocedural states; Z79.01 Long term (current) use of anticoagulants; Z79.82 Long term (current) use of aspirin; Z86.711 Personal history of pulmonary embolism; Z90.49 Acquired absence of other specified parts of digestive tract; Z98.42 Cataract extraction status, left eye; Z98.41 Cataract extraction status, right eye; Z87.891 Personal history of nicotine dependence; Z85.51 Personal history of malignant neoplasm of bladder
CPT/HCPCS: 36415; 51701; 70450; 71045; 72125; 73110; 74176; 80048; 80053; 81003; 82607; 82728; 82746; 82948; 83540; 83550; 83735; 84132; 85025; 85046; 85610; 85730; 93005; 94640; 96361; 96365; 96366; 97110; 97162; 97165; 97530; 99285; A9270; C9803; G0378; J3480; J7030; U0003; U0005

== ENCOUNTER 2022-03-06 14:11 | Outpatient (NON) | payer MEDICARE, SELFPAY ==
[2022-03-06 14:35] LABS: Basophils Percent Auto 0.6 % (0.2-1.2); Eosinophils Absolute Auto 0.1 K/mm3 (0-0.3); Eosinophils Percent Auto 1.9 % (0-4.4); Hematocrit 28.9 % (42.0-52.0); Immature Granulocyte Absolute 0.02 K/mm3 (0.00-0.031); Immature Granulocyte Percent A 0.3 % (0-0.5); Lymphocytes Absolute Auto 0.58 K/mm3 (0.9-3.2); Lymphocytes Percent Auto 8.6 % (18.3-44.2); Mean Corpuscular HGB Conc 31.1 g/dl (32-36); Mean Corpuscular Hemoglobin 29.8 pg (26-34); Mean Corpuscular Volume 95.7 fl (80-100); Mean Platelet Volume 10.2 fl (7.4-10.4); Monocytes Absolute Auto 0.6 K/mm3 (0.1-0.6); Monocytes Percent Auto 8.9 % (2.6-8.5); Neutrophils Absolute Auto 5.4 K/mm3 (1.3-6.7); Neutrophils Percent Auto 79.7 % (45.5-73.1); Platelet Count Result 188 k/mm3 (150-375); Red Blood Count 3.02 M/mm3 (4.6-6.20); White Blood Count 6.7 K/mm3 (4.5-10.0)
[2022-03-06 14:47] LABS: Blood Urea Nitrogen 51 mg/dL (9-20); Calcium 9.7 mg/dL (8.4-10.2); Carbon Dioxide > 40 mmol/L (22-30); Chloride 87 mmol/L (98-107); Estimated Glomerular Filt Rate 36; Glucose 148 mg/dL (65-110); Sodium 139 mmol/L (137-145)
== END 2022-03-06 14:12 | disposition home or self-care (01) ==
PROVIDERS: PCP Emergency Medicine; Visit Provider Internal Medicine
DX: D64.9 Anemia, unspecified (principal); E87.6 Hypokalemia
CPT/HCPCS: 80048; 85025

== ENCOUNTER 2022-03-15 14:52 | Outpatient (NON) | payer MEDICARE, SELFPAY ==
[2022-03-15 16:18] LABS: Magnesium 2.4 mg/dL (1.6-2.3)
[2022-03-15 17:16] LABS: Folic Acid 14.9 ng/mL (2.76->20)
== END 2022-03-15 14:53 | disposition home or self-care (01) ==
LOC: HOME HLTH 14:54
PROVIDERS: PCP Emergency Medicine; Visit Provider Emergency Medicine
DX: E87.6 Hypokalemia (principal); D64.9 Anemia, unspecified
CPT/HCPCS: 82607; 82746; 83735

== ENCOUNTER 2022-03-18 09:54 | Inpatient (IN) | payer MEDICARE, SELFPAY ==
[2022-03-18] VITALS (27 sets, daily range): BP systolic 92–140; BP diastolic 38–75; PULSE 68–121; RESP 13–23; TEMP 36.2–36.8; O2SAT 92–100; BMI 31.4
--- NOTE | ~2022-03-18 | XR_ITS ---
XR chest 1V 03/18/2022 10:42 Indication: Fall. Syncope. Procedure: AP view of the chest Comparison: Comparison to multiple prior studies sequentially, with oldest reviewed study dated 07/08. Findings: Prominent aortic knob, consistent with known aneurysm. Cardiomegaly. There is atheroscleros is and ectasia of the aorta. Mild pulmonary vascular congestion. There is left upper lobe atelectasis /scarring. No significant effusion or pneumothorax. Impression: 1: No acute cardiopulmonary disease. Reviewed, dictated and finalized at location A. Impression: 1: No acute cardiopulmonary disease.
--- NOTE | ~2022-03-18 | XR_ITS ---
XR shoulder RT min 2V 03/18/2022 10:43 INDICATION: Right shoulder pain after fall PROCEDURE: 4 views right shoulder COMPARISON: No prior studies for comparison. FINDINGS: Fracture, dislocation or subluxation is not identified. There is polyarticular osteoarthrit is. The soft tissues appear within normal limits. No foreign bodies are identified. IMPRESSION: 1: NO ACUTE BONE OR JOINT ABNORMALITY IDENTIFIED. Reviewed, dictated and finalized at location A.
--- NOTE | ~2022-03-18 | CT_ITS ---
EXAMINATION: CT brain wo con DATE: 03/18/2022 10:39 INDICATION: Status post fall. TECHNIQUE: Computed tomography (CT) of the head was performed without intravenous contrast. The dose- length product was 681.00 mGy-cm. Automated exposure control and iterative reconstruction technique w ere employed. COMPARISON: None FINDINGS: Streak artifact limits evaluation of the posterior fossa. Mild atrophy. There are scattered mild periventricular and subcortical white matter changes, most likely related to small vessel ische anahi disease (microangiopathy). No acute intracranial hemorrhage, infarction, mass or mass effect. The re is mucosal thickening of the right maxillary, frontal and ethmoid sinuses. No depressed skull frac tures. Mastoids are pneumatized. Left mastoid effusion. There is intracranial atherosclerosis. IMPRESSION: 1. No acute intracranial abnormality. 2: Chronic age-related findings. Reviewed, dictated and finalized at location A.
--- NOTE | ~2022-03-18 | CT_ITS ---
EXAMINATION: CT lumbar spine wo con DATE: 03/18/2022 10:39 INDICATION: Low back pain after fall TECHNIQUE: Computed tomography (CT) of the lumbar spine was performed without intravenous contrast. Eva frank dose-length product was 1359.70 mGy-cm. Automated exposure control and iterative reconstruction te talhareba were employed. COMPARISON: None FINDINGS: There are mild compression deformities of L1, L4 and L5 which appear chronic. There is bila teral lower lobe atelectasis. No pneumothorax. There is an endovascular stent in the abdominal aorta and iliac arteries. There is an abdominal aortic aneurysm measuring 6.9 cm. There is bilateral spondy lolysis at L4. No evidence for spondylolisthesis. There is moderate lower facet hypertrophy. IMPRESSION: 1. No acute fracture. 2: Mild chronic compression fractures of L1, L4 and L5 which are likely chronic. 3: Moderate-severe lumbar spondylosis. Reviewed, dictated and finalized at location A. IMPRESSION: 1. No acute fracture. 2: Mild chronic compression fractures of L1, L4 and L5 which are likely chronic . 3: Moderate-severe lumbar spondylosis.
--- NOTE | ~2022-03-18 | CT_ITS ---
EXAMINATION: CT cervical spine wo con DATE: 03/18/2022 10:39 INDICATION: Neck pain TECHNIQUE: Computed tomography (CT) of the cervical spine was performed without intravenous contrast. The dose-length product was 531 mGy-cm. Automated exposure control and iterative reconstruction tech nique were employed. COMPARISON: None FINDINGS: There is emphysema. There is severe cervical spondylosis at C3-4 through C6-7 characterized by disc narrowing, endplate sclerosis and marginal osteophytes. Odontoid process is normal. Craniove rtebral junction is unremarkable. 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 Vertebral body height s are maintained. There is advanced multilevel uncinate hypertrophy. There is mild levocurvature of t he cervical spine. There is carotid atherosclerosis. Thyroid gland is heterogeneous with subcentimete r hypodense nodules, likely benign. IMPRESSION: 1. No acute fracture. Reviewed, dictated and finalized at location A. IMPRESSION: 1. No acute fracture.
--- NOTE | 2022-03-18 10:05 | ECG_ITS ---
Measurements Intervals [place] Rate: 77 P: 94 ME: 270 QRS: -56 QRSD: 174 T: 19 QT: 415 QTc: 470 Interpretive Statements SINUS RHYTHM WITH FIRST DEGREE AV BLOCK RIGHT BUNDLE BRANCH BLOCK [120+ ms QRS DURATION, UPRIGHT V1, 40+ ms S IN I/aVL/V4/V5/V6] LEFT ANTERIOR FASCICULAR BLOCK [QRS AXIS <= -45, QR IN I, RS IN II] COMPARED TO ECG 02/23/2022 05:24:15 NO SIGNIFICANT CHANGES Electronically Signed On 03-18-2022 11:09:29 CDT by Tj Whyte M.D.
[2022-03-18 10:19] LABS: Alveolar/Arterial O2 Gradient 120.5 mmHg; Base Excess ABG 10.3 mEq/l (+/-2.0); Carboxyhemoglobin 0.7 % THb (0-2.0); Fractional Inspired Oxygen 36 %; HCO3 ABG 36.2 mEq/l (22.0-26.0); Methemoglobin ABG 0.1 %THb (0-1.5); Oxygen Content ABG 11.3 %vol (16.0-22.0); Oxygen Saturation ABG 93.6 % (95.0-100.0); Oxyhemoglobin 91.7 % THb (90.0-100.0); PCO2 ABG 57.8 mmHg (35.0-45.0); PO2 ABG 69.1 mmHg (80.0-100.0); PO2 FiO2 Ratio Arterial Blood 1.92 %; Reduced Hemoglobin 7.5 %THb (0-5.0); Total Hemoglobin 8.7 g/dL (12.0-18.0); pH ABG 7.415 (7.350-7.450)
--- NOTE | 2022-03-18 10:19 | ED.FALL ---
HPI - Fall General Chief Complaint: Fall Stated Complaint: GLF Time Seen by Provider: 03/18/22 10:00 Source: patient, EMS, RN notes reviewed and old records reviewed Mode of arrival: EMS Limitations: no limitations History of Present Illness HPI Narrative: This is an 81 year old male with history of chronic respiratory failure on 3 L [place] oxygen, atrial fibrillation, chronic anticoagulation, AAA s/p repair who presents for evaluation of fall vs syncope. Patient states he is unsure why he fell but he thinks he may have passed out. He fell backwards, and he is complaining of neck pain and low back pain. Patient is also complaining of right shoulder pain. He denies chest pain, sob, abdominal pain, nausea or vomiting. PAtient is takes eliquis. Related Data Home Medications Medication Instructions Recorded Confirmed budesonide-formoterol HFA 160 2 puff inhalation BID 10/27/19 03/18/22 mcg-4.5 mcg/actuation aerosol inhaler (Symbicort) flecainide 100 mg tablet 100 mg PO BID 10/27/19 03/18/22 fluticasone propionate 50 1 spray intranasal DAILY PRN 10/27/19 03/18/22 mcg/actuation nasal Allergy Symptoms spray,suspension ipratropium 20 mcg-albuterol 100 1 puff inhalation QID 10/27/19 03/18/22 mcg/actuation mist for inhalation (Combivent Respimat) isosorbide mononitrate 30 mg 30 mg PO DAILY 10/27/19 03/18/22 tablet,extended release 24 hr apixaban 2.5 mg tablet (Eliquis) 2.5 mg PO BID 02/23/20 03/18/22 aspirin 81 mg chewable tablet 81 mg PO DAILY 02/23/20 03/18/22 cholecalciferol (vitamin D3) 125 125 mcg PO DAILY 02/23/20 03/18/22 mcg (5,000 unit) tablet (Vitamin D3) nitroglycerin 0.4 mg sublingual 0.4 mg sublingual DIRECTED PRN 02/23/20 03/18/22 tablet Chest pain polyethylene glycol 3350 17 17 g PO DAILY 02/23/20 03/18/22 gram/dose oral powder (Miralax) sennosides 15 mg tablet (Perdiem 30 mg PO DAILY 02/23/20 03/18/22 Overnight Relief) albuterol sulfate 90 mcg/actuation 2 puff inhalation QID PRN dyspnea 07/12/21 03/18/22 aerosol inhaler pediatric multivitamin no.76 1 tablet PO DAILY 07/12/21 03/18/22 (Flintstones Complete chewable tablet) atenolol 25 mg tablet 12.5 mg PO DAILY 03/18/22 03/18/22 famotidine 20 mg tablet (Pepcid) 20 mg PO DAILY PRN Indigestion 03/18/22 03/18/22 furosemide 40 mg tablet 0.5 tablet PO DAILY 03/18/22 03/18/22 Allergies Allergy/AdvReac Type Severity Reaction Status Date / Time budesonide Allergy Severe Difficulty Verified 03/18/22 10:15 [From [employer]] Breathing formoterol Allergy Severe Difficulty Verified 03/18/22 10:15 [From [employer]] Breathing glycopyrrolate Allergy Severe Difficulty Verified 03/18/22 10:15 [From [employer]] Breathing tetanus and diphtheria Allergy Severe FEVER, Verified 03/18/22 10:15 toxoids CHILLS clindamycin Allergy Unknown RASH Verified 03/18/22 10:15 amiodarone AdvReac Severe liver Verified 03/18/22 10:15 toxicity pantoprazole AdvReac Mild Nausea Verified 03/18/22 10:15 Review of Systems Review of Systems: All systems reviewed & are unremarkable except as noted in HPI and below Constitutional: Constitutional: Denies chills, Denies fatigue and Denies fever(s) Cardiovascular: Cardiovascular: Denies chest pain and Denies rapid heart rate Respiratory: Respiratory: Denies chest congestion and Denies cough Gastrointestinal: Gastrointestinal: Denies abdominal pain, Denies bloating and Denies constipation Genitourinary: Genitourinary: Denies hematuria Musculoskeletal: Musculoskeletal: Reports back pain and Reports arthralgias Neurologic: Reports syncope, Denies headache(s) and Denies focal weakness [facility] Past Medical History Medical History Atrial flutter with rapid ventricular response (~03/2017) Status post DC cardioversion. Benign prostatic hyperplasia Bladder cancer (~06/2019) Noninvasive low-grade papillary uroth
[2022-03-18 10:20] LABS: Device NASAL CANNULA; Modified Allen's Test Pass; Site Drawn RIGHT RADIAL
--- NOTE | 2022-03-18 10:40 | PC.NURSE ---
pt at imaging at this time
--- NOTE | 2022-03-18 10:51 | PC.NURSE ---
pt needs to have BM however doesn't want to use bedpan will wait for imaging results before use bedside commode. Pt unable to provide urine while laying down and refused straight cath at this time.
[2022-03-18 10:56] LABS: Basophils Percent Auto 0.5 % (0.2-1.2); Eosinophils Absolute Auto 0.2 K/mm3 (0-0.3); Eosinophils Percent Auto 3.5 % (0-4.4); Hematocrit 26.7 % (42.0-52.0); Hemoglobin 7.8 g/dL (14.0-18.0); Immature Granulocyte Absolute 0.03 K/mm3 (0.00-0.031); Immature Granulocyte Percent A 0.5 % (0-0.5); Lymphocytes Absolute Auto 0.66 K/mm3 (0.9-3.2); Lymphocytes Percent Auto 10.2 % (18.3-44.2); Mean Corpuscular HGB Conc 29.2 g/dl (32-36); Mean Corpuscular Volume 99.3 fl (80-100); Mean Platelet Volume 9.3 fl (7.4-10.4); Monocytes Absolute Auto 0.6 K/mm3 (0.1-0.6); Monocytes Percent Auto 8.6 % (2.6-8.5); Neutrophils Percent Auto 76.7 % (45.5-73.1); Platelet Count Result 179 k/mm3 (150-375); Red Blood Count 2.69 M/mm3 (4.6-6.20); Red Cell Distribution Width 13.9 % (11.5-14.5); White Blood Count 6.5 K/mm3 (4.5-10.0)
[2022-03-18 11:13] LABS: Alanine Aminotransferase 11 U/L (6-50); Albumin Level 3.2 g/dL (3.5-5.1); Alkaline Phosphatase 86 U/L (38-126); Aspartate Amino Transferase 19 U/L (17-59); Bilirubin,Total 0.3 mg/dL (0.2-1.3); Blood Urea Nitrogen 32 mg/dL (9-20); Calcium 8.8 mg/dL (8.4-10.2); Carbon Dioxide > 40 mmol/L (22-30); Chloride 101 mmol/L (98-107); Estimated CRCL calculation 44 ml/min; Estimated Glomerular Filt Rate 49; Glucose 91 mg/dL (65-110); INR 1.2; Magnesium 2.5 mg/dL (1.6-2.3); Potassium 3.9 mmol/L (3.4-5.0); Prothrombin Time 15.1 Seconds (11.1-14.7); Sodium 142 mmol/L (137-145)
[2022-03-18 11:14] LABS: Partial Thromboplastin Time 26.7 SECONDS (22.3-36.8)
[2022-03-18 11:18] LABS: Troponin I < 0.012 ng/mL (0.000-0.034)
--- NOTE | 2022-03-18 11:18 | PC.NURSE ---
pt on bedside commode at this time attempting to pass a BM. Pt instructed to not get up alone and press call light when finished.
[2022-03-18 11:25] LABS: Anisocytosis 1+ (NORMAL); Hypochromasia 2+ (NORMAL); Platelet Estimate Adequate (Adequate); Tear Drop Cells 1+ (NORMAL)
[2022-03-18 11:39] LABS: Appearance Urine Clear (Clear); Bilirubin Urine Negative (Negative); Blood Urine Negative (Negative); Color Urine Yellow (Yellow); Glucose Urine UA Negative (Negative); Ketones Urine Negative (Negative); Leukocyte Esterase Ur Negative LEU/UL (Negative); Nitrate Urine Negative (Negative); Protein Urine Negative (Negative); Specific Grav Ur 1.015 (1.001-1.035); Urobilinogen Urine 0.2 mg/dL (<2.0)
[2022-03-18 11:40] LABS: Add Urine Microscopic? NO
[2022-03-18] MEDS: SODIUM CHLORIDE 0.9% IV 500 ML 999 ML IV CONT (14:17)
--- NOTE | 2022-03-18 14:18 | PC.NURSE ---
Dr. Hawley at bedside doing a rectal exam
[2022-03-18] MEDS: PANTOPRAZOLE SODIUM IV 40 MG VIAL IV PUSH (15:03)
[2022-03-18 15:57] LABS: Hemoglobin 7.4 g/dL (14.0-18.0)
--- NOTE | 2022-03-18 16:30 | PM.IMHP ---
H&P: HPI History of Present Illness Date/Time: Patient was placed observation status for expected length of stay less than 23 hours for management, will plan to re-evaluate tomorrow for improvement. 03/18/22 16:30 Chief Complaint: Fall Narrative: Mr. Grubbs is an 81-year-old gentleman who presented emergency room with complaints of falls. Patient states he has been admitted multiple times to the hospital for falls and hypotension. Patient states he has had multiple medication adjustments including discontinuation of his triamterene, decrease dosage of atenolol and Lasix. Patient states today he was standing up and trying to put something in a cabinet he turned around and he fell backwards onto his butt and is unsure if he lost consciousness. Patient states he was dizzy and did have some tunnel vision, but he is not sure if he told lost consciousness. Patient's family is at bedside states that they do not believe he lost consciousness. Patient states he has had weakness in his knees that has worsened recently. Patient was recently admitted on 02/23/2022 for a fall. At that point time patient had fallen in the bathroom and at that time he was also unsure if he lost consciousness. Patient does have bruising to bilateral arms and under his right eye from his previous falls. Patient states he has been taking all medications without any difficulty. Patient denies any chest pain, abnormal shortness of breath, palpitations, melena, hematochezia, or hematemesis. Upon evaluation in emergency room patient patient was noted to have a hemoglobin of 7.8 and hematocrit of 26.7. This is decreased from previous admission in February. Hemoccult of the stool was performed and it was positive. Patient does have a known history of atrial fibrillation and is on anticoagulation. Patient states he also has a known history of abdominal aortic aneurysm, parkinsonism, hypotension, atrial fibrillation, and COPD. Patient states he wears oxygen at home at 3 L per nasal cannula at all times. Patient states he has never been diagnosed with Parkinson's disease, but has been told he has parkinsonism symptoms. Patient does have tremors to bilateral upper extremities. Review of Systems Review of Systems: A 12 point review of systems was completed patient all pertinent positive and negative per HPI the remainder are unremarkable. [facility] Past Medical History Medical History Atrial flutter with rapid ventricular response (~03/2017) Status post DC cardioversion. Benign prostatic hyperplasia Bladder cancer (~06/2019) Noninvasive low-grade papillary urothelial carcinoma. Bowel obstruction Chronic anemia Chronic kidney disease, stage 3 Baseline creatinine ranges between 1.3 and 1.50. Chronic obstructive pulmonary disease Chronic respiratory failure with hypoxia, on home oxygen therapy Compression fracture Chronic compression fractures in the low thoracic and lumbar spine. Coronary artery disease (~05/2016) Cardiac catheterization per Dr. Bills showed a 99% mid RCA lesion with unsuccessful PTCA as lesion was unable to be crossed. Depression with anxiety Essential hypertension Hyperlipidemia Osteoarthritis Paroxysmal atrial fibrillation Pneumonia Pulmonary embolism Tremor Surgical History Surgical History History of abdominal aortic aneurysm repair (~2003) History of cardiac cath History of cataract extraction History of cholecystectomy History of inguinal hernia repair Status post surgical removal and fulguration of bladder neoplasm (~06/2019) Family History Family History Mother Acute myocardial infarction Father Aortic aneurysm Sibling Aortic aneurysm Social History Social History Social History: The patient lives in [place]. He
[2022-03-18 16:34] LABS: SARS-CoV-2 RNA PCR Negative
--- NOTE | 2022-03-18 17:09 | ADMGEN ---
This patient, Kenan Grubbs, was admitted to [address] [place] [address] Room 304-02. Patient/family oriented to hospital policies and general routines including ID bracelet, bed and alarms, visiting hours, pain management, procedures, bathroom and other care routines, personal items, smoking policy, room service/diet, and visiting hours. Information on how to activate the Rapid Response Team has been discussed. Patient/Family are encouraged to report perceived risks to care and to ask questions if they do not understand what they are told or what they should do.
[2022-03-18 18:20] LABS: Glucose Point of Care 115 mg/dl (65-105)
--- NOTE | 2022-03-18 19:31 | PC.NURSE ---
Hospitalist made aware of dysrhythmia on telemetry. Provider viewed monitor and noted it is artifact r/t tremors. Orders noted to DC Telemetry.
[2022-03-18 20:59] LABS: Hematocrit 26.4 % (42.0-52.0); Hemoglobin 7.9 g/dL (14.0-18.0)
[2022-03-19] VITALS (11 sets, daily range): BP systolic 91–139; BP diastolic 51–68; PULSE 60–77; RESP 18–20; TEMP 36.4–36.7; O2SAT 92–99
[2022-03-19 03:48] LABS: Hematocrit 26.9 % (42.0-52.0)
[2022-03-19 04:19] LABS: Alanine Aminotransferase 11 U/L (6-50); Alkaline Phosphatase 91 U/L (38-126); Aspartate Amino Transferase 19 U/L (17-59); Bilirubin,Total 0.3 mg/dL (0.2-1.3); Blood Urea Nitrogen 27 mg/dL (9-20); Calcium 8.3 mg/dL (8.4-10.2); Carbon Dioxide > 40 mmol/L (22-30); Chloride 101 mmol/L (98-107); Estimated CRCL calculation 44 ml/min; Estimated Glomerular Filt Rate 49; Glucose 93 mg/dL (65-110); Potassium 4.1 mmol/L (3.4-5.0); Sodium 141 mmol/L (137-145)
--- NOTE | 2022-03-19 06:56 | WPDGICN ---
Assessment and Plan Assessment and plan (1) Guaiac positive stools: Code(s): R19.5 - Other fecal abnormalities Status: Acute Assessment and Plan: he has not seen gross blood in his stools but he was heme-positive in the emergency room. I discussed endoscopy and colonoscopy with him. By tomorrow he will have been off Eliquis 48 hours and should be safe to proceed. (2) Anemia: Code(s): D64.9 - Anemia, unspecified Status: Acute Assessment and Plan: Hemoglobin had been 11 2 years ago, now is 7.8. (3) Paroxysmal atrial fibrillation: Code(s): I48.0 - Paroxysmal atrial fibrillation Status: Acute Assessment and Plan: He is on Eliquis. He believes that his last dose was yesterday morning (4) Chronic kidney disease, stage 3: Qualifiers: Chronic kidney disease stage 3 subtype: stage 3b (GFR 30-44) Qualified Code(s): N18.32 - Chronic kidney disease, stage 3b Code(s): N18.3 - Chronic kidney disease, stage 3 (moderate) Status: Acute Assessment and Plan: Creatinine is holding at 1.4. it was 1.6 about a month ago. GI Consult Note Consult date/time: 03/19/22 06:56 I am asked to see this patient because he came to the emergency room having fallen several times recently. He was trying to put something in a cabinet when he fell. He denies losing consciousness. He was hospitalized just a few weeks ago because of a fall also. He denies having pain or disability in his legs. He denies shortness of breath. He was however found to be anemic with a hemoglobin of 7.8. Two years ago his hemoglobin was 11. He has chronic atrial fibrillation for which he is anticoagulated with Eliquis. He cannot recall when he had his last colonoscopy. We have no record of 1 here. He denies seen blood in his stools having black tarry stools. His stool however was Hemoccult positive. HPI: Kenan Grubbs is a 81 year old male Who presented with episodes of falling and found to be anemic. See above regarding details Review of Systems Review of Systems: All systems reviewed & are unremarkable except as noted in HPI and below PMFSH Past Medical History Medical History Atrial flutter with rapid ventricular response (~03/2017) Status post DC cardioversion. Benign prostatic hyperplasia Bladder cancer (~06/2019) Noninvasive low-grade papillary urothelial carcinoma. Bowel obstruction Chronic anemia Chronic kidney disease, stage 3 Baseline creatinine ranges between 1.3 and 1.50. Chronic obstructive pulmonary disease Chronic respiratory failure with hypoxia, on home oxygen therapy Compression fracture Chronic compression fractures in the low thoracic and lumbar spine. Coronary artery disease (~05/2016) Cardiac catheterization per Dr. Bills showed a 99% mid RCA lesion with unsuccessful PTCA as lesion was unable to be crossed. Depression with anxiety Essential hypertension Hyperlipidemia Osteoarthritis Paroxysmal atrial fibrillation Pneumonia Pulmonary embolism Tremor Surgical History Surgical History History of abdominal aortic aneurysm repair (~2003) History of cardiac cath History of cataract extraction History of cholecystectomy History of inguinal hernia repair Status post surgical removal and fulguration of bladder neoplasm (~06/2019) Family History Family History Mother Acute myocardial infarction Father Aortic aneurysm Sibling Aortic aneurysm Social History Social History Social History: The patient lives in [place]. He is . His daughter lives at home with him. 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 He was a heavy smoker, up to 2 packs of cigarettes per day for 45 years, and he ultimately quit in 1999. H
[2022-03-19 07:48] LABS: Glucose Point of Care 83 mg/dl (65-105)
--- NOTE | 2022-03-19 08:33 | PM.IMPN ---
Progress Note: A&P Assessment and Plan (1) Guaiac positive stools: Code(s): R19.5 - Other fecal abnormalities Status: Acute Assessment and Plan: Patient did have a positive Hemoccult stool and drop in H/H. Gastroenterology has been consult and appreciate further recommendations. Patient will be kept NPO after midnight. Will avoid any anticoagulation at this time until seen by GI tomorrow for his colonoscopy, SCDs for DVT prophylaxis. No tachycardia at this time. Continue protonix BID H&H Colonoscopy in the AM with prep tonight. (2) Frequent falls: Code(s): R29.6 - Repeated falls Status: Acute Assessment and Plan: Patient orthostatics were checked and found to be positive. We will hold his home alfuzosin at this time. CT head, CXR, Right shoulder XR, C-Spine and L-Spine XR all show no acute fractures, no acute intracranial abnormality, no acute cardiopulmonary abnormality, respectively. Patient's INR 1.2, UA normal, Mag 2.5, troponins negative, covid negative, and EKG showing NSR, 1st degree AV block, RBBB, LAFB. PT/OT evaluation requested given multiple recent falls. (3) Anemia: Code(s): D64.9 - Anemia, unspecified Status: Acute Assessment and Plan: H*H stable around 8/26.9 Transfuse if <7 Plan as above. (4) COPD (chronic obstructive pulmonary disease): Qualifiers: COPD type: unspecified COPD Qualified Code(s): J44.9 - Chronic obstructive pulmonary disease, unspecified Code(s): J44.9 - Chronic obstructive pulmonary disease, unspecified Status: Acute Assessment and Plan: Patient is on baseline oxygen of 3 L per nasal cannula that he does wear at home. Patient does have an elevated CO2 level, but this does appear to be his baseline. No further workup or treatment needed at this time for COPD. Will continue patient's home medications. Subjective Date/time seen: 03/19/22 08:33 81 yo male with known history of abdominal aortic aneurysm s/p repair, parkinsonism, hypotension, atrial fibrillation, and COPD on 3L home O2 who presents to us after a fall and possible syncope. He states he is feeling well today. He has no complaints of chest pain, syncope, dizziness, shortness of breath, loose or bloody stools, nausea, or vomiting. He is asking to continue his combivent while in the hospital. Exam Narrative: GENERAL APPEARANCE: Alert and oriented x 3, in no apparent distress. HEENT: PERRL, EOMI. Sclerae anicteric. Moist mucous membranes. NECK: Supple. No JVD or obvious carotid bruits. RESPIRATORY: Respirations are nonlabored. Breath sounds are equal bilaterally, he has supplemental oxygen. CARDIOVASCULAR: Regular rate and rhythm with normal S1-S2. No murmurs, gallops, or rubs. GASTROINTESTINAL: Soft, flat, and benign. No mass, tenderness, guarding, or rebound. No organomegaly or hernia. Bowel sounds are present. SKIN: Warm, dry, well perfused. Good turgor. No lesions, nodules, or rashes noted. EXTREMITIES: No cyanosis, clubbing, or edema. Radial and pedal pulses intact. NEUROLOGICAL: Alert. Cranial nerves 2-12 are grossly intact. No gross focal deficits to casual conversation. PSYCHIATRIC: Pleasant and cooperative with normal mood and affect. Objective Data Vital Signs Vital Signs: Vital Signs - 24 hr 03/18/22 09:54 03/18/22 11:16 03/18/22 10:07 Temperature 98.2 F Pulse Rate 76 121 H 81 Respiratory Rate 19 18 17 Blood Pressure 137/67 121/71 Pulse Oximetry 95 97 95 Oxygen Delivery Nasal Cannula Oxygen Flow Rate 3 03/18/22 10:15 03/18/22 10:44 03/18/22 10:45 Temperature Pulse Rate 75 85 Respiratory Rate 16 20 Blood Pressure 125/74 Pulse Oximetry 97 93 93 Oxygen Delivery Oxygen Flow Rate 03/18/22 10:46 03/18/22 11:00 03/18/22 11:01 Temperature Pulse Rate 75 74 74 Respiratory Rate 16 16 18 Blood Pressure 121/71 Pulse Oximetry 96 95 98 Ox
[2022-03-19 08:44] LABS: Hematocrit 26.4 % (42.0-52.0); Hemoglobin 8.1 g/dL (14.0-18.0)
[2022-03-19] MEDS: PANTOPRAZOLE SODIUM IV 40 MG VIAL IV PUSH ×2 (08:50→17:49)
[2022-03-19] MEDS: MULTIVITS W-FE,MIN CHEWABLE TABLET 1 TABLET PO (08:52)
[2022-03-19] MEDS: MONTELUKAST SODIUM 10 MG TABLET PO (08:52)
[2022-03-19] MEDS: FUROSEMIDE 20 MG TABLET PO (08:52)
[2022-03-19] MEDS: ISOSORBIDE MONONITRATE 30 MG TAB.ER.24H PO (08:52)
[2022-03-19] MEDS: SENNOSIDES 8.6 MG TABLET PO (08:52)
[2022-03-19] MEDS: CHOLECALCIFEROL 1,000 UNITS TABLET 5000 UNITS PO (08:53)
[2022-03-19] MEDS: POTASSIUM CHLORIDE 20 MEQ TABLET.ER PO (08:53)
[2022-03-19] MEDS: atenoloL 12.5 MG TABLET PO (08:53)
[2022-03-19] MEDS: polyethylene glycoL 3350 17 GM POWD.PACK PO (08:53)
[2022-03-19 11:15] LABS: Glucose Point of Care 97 mg/dl (65-105)
--- NOTE | 2022-03-19 11:27 | PHAR ---
HOME MEDICATION VERIFIED BY PHARMACY COMBIVENT RESPIMAT INHALER 20MCG/100MCG PER ACTUATION
[2022-03-19] MEDS: BISACODYL 5 MG TABLET EC 10 MG PO ×3 (12:28→22:21)
[2022-03-19] MEDS: polyethylene glycoL 3350 238 GM BOTTLE PO (12:59)
--- NOTE | 2022-03-19 14:20 | PCOTNOTE ---
Attempted to see pt. for occupational therapy evaluation. Pt. declined to participate at this time as he is preparing for colonoscopy.
[2022-03-19 14:37] LABS: Hematocrit 27.3 % (42.0-52.0); Hemoglobin 8.1 g/dL (14.0-18.0)
[2022-03-19 16:28] LABS: Glucose Point of Care 108 mg/dl (65-105)
[2022-03-20] VITALS (17 sets, daily range): BP systolic 81–138; BP diastolic 49–97; PULSE 65–81; RESP 18–30; TEMP 36–36.9; O2SAT 85–100
--- NOTE | 2022-03-20 03:38 | PC.NURSE ---
Patient states he wants to sit on side of bed and does not want the bed alarm on at this time. Patient was educated on fall risk and use of alarms to assist in fall prevention. Patient verbalized he understood and stated he still wanted to sit on the side of bed and use the BSC unassisted.
[2022-03-20] MEDS: MAGNESIUM CITRATE 300 ML BTL 180 ML PO (05:20)
[2022-03-20 06:02] LABS: Glucose Point of Care 97 mg/dl (65-105)
[2022-03-20 07:45] LABS: Glucose Point of Care 98 mg/dl (65-105)
--- NOTE | 2022-03-20 07:56 | WPDANESEPPF ---
Anes - Initial Pre Proc Eval Procedure: Operation Date: 03/20/22 12:30 Proposed Procedures p Esophagogastroduodenoscopy & Colonoscopy - Satnam Tran MD Date/Time: 03/20/22 07:56 Surgeon: Lizet Pre Op Diagnosis: frequent falls,anemia,guaic positive,dizziness Patient Data Age: 81 Gender: M Height: 1.78 m Weight: 99.5 kg Last Vital Signs Temp 36.4 C L 03/20/22 05:38 Pulse 80 03/20/22 05:38 Resp 18 03/20/22 05:38 BP 138/97 H 03/20/22 05:38 Pulse Ox 96 03/20/22 05:38 O2 Del Method Nasal Cannula 03/19/22 13:28 O2 Flow Rate 3 03/19/22 13:28 Allergies Allergy/AdvReac Type Severity Reaction Status Date / Time budesonide Allergy Severe Difficulty Verified 03/20/22 11:00 [From [employer]] Breathing formoterol Allergy Severe Difficulty Verified 03/20/22 11:00 [From [employer]] Breathing glycopyrrolate Allergy Severe Difficulty Verified 03/20/22 11:00 [From [employer]] Breathing tetanus and diphtheria Allergy Severe FEVER, Verified 03/20/22 11:00 toxoids CHILLS clindamycin Allergy Unknown RASH Verified 03/20/22 11:00 amiodarone AdvReac Severe liver Verified 03/20/22 11:00 toxicity pantoprazole AdvReac Mild Nausea Verified 03/20/22 11:00 Home Medications Medication Instructions Recorded Confirmed Type budesonide-formoterol HFA 160 2 puff inhalation BID 10/27/19 03/18/22 History mcg-4.5 mcg/actuation aerosol inhaler (Symbicort) flecainide 100 mg tablet 100 mg PO BID 10/27/19 03/18/22 History fluticasone propionate 50 1 spray intranasal DAILY PRN 10/27/19 03/18/22 History mcg/actuation nasal Allergy Symptoms spray,suspension ipratropium 20 mcg-albuterol 100 1 puff inhalation QID 10/27/19 03/18/22 History mcg/actuation mist for inhalation (Combivent Respimat) isosorbide mononitrate 30 mg 30 mg PO DAILY 10/27/19 03/18/22 History tablet,extended release 24 hr apixaban 2.5 mg tablet (Eliquis) 2.5 mg PO BID 02/23/20 03/18/22 History aspirin 81 mg chewable tablet 81 mg PO DAILY 02/23/20 03/18/22 History cholecalciferol (vitamin D3) 125 125 mcg PO DAILY 02/23/20 03/18/22 History mcg (5,000 unit) tablet (Vitamin D3) nitroglycerin 0.4 mg sublingual 0.4 mg sublingual DIRECTED PRN 02/23/20 03/18/22 History tablet Chest pain polyethylene glycol 3350 17 17 g PO DAILY 02/23/20 03/18/22 History gram/dose oral powder (Miralax) sennosides 15 mg tablet (Perdiem 30 mg PO DAILY 02/23/20 03/18/22 History Overnight Relief) albuterol sulfate 90 mcg/actuation 2 puff inhalation QID PRN dyspnea 07/12/21 03/18/22 History aerosol inhaler pediatric multivitamin no.76 1 tablet PO DAILY 07/12/21 03/18/22 History (Cesario Complete chewable tablet) alfuzosin 10 mg tablet,extended 10 mg PO DAILY #90 tabs 01/05/22 03/18/22 Rx release 24 hr montelukast 10 mg tablet 10 mg PO DAILY #90 tabs 01/09/22 03/18/22 Rx potassium chloride 20 mEq 20 meq PO DAILY #90 tabs 03/07/22 03/18/22 Rx tablet,extended release(part/cryst) atenolol 25 mg tablet 12.5 mg PO DAILY 03/18/22 03/18/22 History famotidine 20 mg tablet (Pepcid) 20 mg PO DAILY PRN Indigestion 03/18/22 03/18/22 History furosemide 40 mg tablet 0.5 tablet PO DAILY 03/18/22 03/18/22 History Laboratory Tests 03/19/22 03/19/22 03/19/22 08:38 11:00 14:13 Hgb 8.1 g/dL L g/dL 8.1 g/dL L g/dL (14.0-18.0) (14.0-18.0) Hct 26.4 % L % 27.3 % L % (42.0-52.0) (42.0-52.0) POC Capillary Glucose 97 mg/dl mg/dl (65-105) 03/19/22 03/19/22 03/20/22 16:11 22:19 07:40 Hgb Hct POC Capillary Glucose 108 mg/dl H mg/dl 97 mg/dl mg/dl 98 mg/dl mg/dl (65-105) (65-105) (65-105) Patient hx anesthesia problems: none Family hx anesthesia problems: none Results Review: All pre-operative results and documents have been reviewed as part of the pre-operative evaluation. PMFSH Past Medical History Medical
--- NOTE | 2022-03-20 08:38 | PM.IMPN ---
Progress Note: A&P Assessment and Plan (1) Guaiac positive stools: Code(s): R19.5 - Other fecal abnormalities Status: Acute Assessment and Plan: Patient did have a positive Hemoccult stool and drop in H/H. Gastroenterology has been consult and appreciate further recommendations. Patient will be kept NPO after midnight. Will avoid any anticoagulation at this time until seen by GI tomorrow for his colonoscopy, SCDs for DVT prophylaxis. No tachycardia at this time. Continue protonix BID H&H tending w/ AM labs. Colonoscopy in the AM with prep tonight. 03/20- Colonoscopy today. H& H remain stable at 8.1/27.3 (2) Frequent falls: Code(s): R29.6 - Repeated falls Status: Acute Assessment and Plan: Patient orthostatics were checked and found to be positive. We will hold his home alfuzosin at this time. CT head, CXR, Right shoulder XR, C-Spine and L-Spine XR all show no acute fractures, no acute intracranial abnormality, no acute cardiopulmonary abnormality, respectively. Patient's INR 1.2, UA normal, Mag 2.5, troponins negative, covid negative, and EKG showing NSR, 1st degree AV block, RBBB, LAFB. PT/OT evaluation requested given multiple recent falls. 03/20- PT/OT recommended rehab placement for this patient. He continues with therapy today. (3) Anemia: Code(s): D64.9 - Anemia, unspecified Status: Acute Assessment and Plan: H*H stable around 8/26.9 Transfuse if <7 Plan as above. 03/20- H/H Stable. Plan as above. (4) COPD (chronic obstructive pulmonary disease): Qualifiers: COPD type: unspecified COPD Qualified Code(s): J44.9 - Chronic obstructive pulmonary disease, unspecified Code(s): J44.9 - Chronic obstructive pulmonary disease, unspecified Status: Acute Assessment and Plan: Patient is on baseline oxygen of 3 L per nasal cannula that he does wear at home. Patient does have an elevated CO2 level, but this does appear to be his baseline. No further workup or treatment needed at this time for COPD. Will continue patient's home medications. 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 Subjective Date/time seen: 03/20/22 08:38 Exam Narrative: GENERAL APPEARANCE: Alert and oriented x 3, in no apparent distress. HEENT: PERRL, EOMI. Sclerae anicteric. Moist mucous membranes. NECK: Supple. No JVD or obvious carotid bruits. RESPIRATORY: Respirations are nonlabored. Breath sounds are equal bilaterally, he has supplemental oxygen. CARDIOVASCULAR: Regular rate and rhythm with normal S1-S2. No murmurs, gallops, or rubs. GASTROINTESTINAL: Soft, flat, and benign. No mass, tenderness, guarding, or rebound. No organomegaly or hernia. Bowel sounds are present. SKIN: Warm, dry, well perfused. Good turgor. No lesions, nodules, or rashes noted. EXTREMITIES: No cyanosis, clubbing, or edema. Radial and pedal pulses intact. NEUROLOGICAL: Alert. Cranial nerves 2-12 are grossly intact. No gross focal deficits to casual conversation. PSYCHIATRIC: Pleasant and cooperative with normal mood and affect. Objective Data Vital Signs Vital Signs: Vital Signs - 24 hr 03/19/22 08:53 03/19/22 11:07 03/19/22 13:28 Temperature Pulse Rate 60 Respiratory Rate Blood Pressure Pulse Oximetry 97 Oxygen Delivery Nasal Cannula Nasal Cannula Oxygen Flow Rate 3 3 03/19/22 13:46 03/19/22 13:45 03/19/22 13:46 Temperature 97.5 F L Pulse Rate 71 Respiratory Rate 18 Blood Pressure 102/51 L 100/51 L 91/55 L Pulse Oximetry 96 Oxygen Delivery Oxygen Flow Rate 03/19/22 08:50 03/19/22 21:10 03/19/22 21:13 Temperature 97.8 F 97.7 F Pulse Rate 71 75 Respiratory Rate 18 18 Blood Pressure 130/58 L 126/68 Pulse Oximetry 96 99 98 Oxygen Delivery Nasal Cannula Oxyge
[2022-03-20] MEDS: SENNOSIDES 8.6 MG TABLET PO (08:55)
[2022-03-20] MEDS: CHOLECALCIFEROL 1,000 UNITS TABLET 5000 UNITS PO (08:55)
[2022-03-20] MEDS: atenoloL 12.5 MG TABLET PO (08:56)
[2022-03-20] MEDS: MONTELUKAST SODIUM 10 MG TABLET PO (08:56)
[2022-03-20] MEDS: POTASSIUM CHLORIDE 20 MEQ TABLET.ER PO (08:57)
[2022-03-20] MEDS: FUROSEMIDE 20 MG TABLET PO (08:57)
[2022-03-20] MEDS: ISOSORBIDE MONONITRATE 30 MG TAB.ER.24H PO (08:57)
[2022-03-20] MEDS: PANTOPRAZOLE SODIUM IV 40 MG VIAL IV PUSH (08:57)
[2022-03-20] MEDS: MULTIVITS W-FE,MIN CHEWABLE TABLET 1 TABLET PO (08:57)
[2022-03-20 09:31] LABS: Hematocrit 27.1 % (42.0-52.0); Hemoglobin 8.2 g/dL (14.0-18.0); Mean Corpuscular HGB Conc 30.3 g/dl (32-36); Mean Corpuscular Hemoglobin 28.8 pg (26-34); Mean Corpuscular Volume 95.1 fl (80-100); Mean Platelet Volume 9.7 fl (7.4-10.4); Platelet Count Result 192 k/mm3 (150-375); Red Blood Count 2.85 M/mm3 (4.6-6.20); Red Cell Distribution Width 13.7 % (11.5-14.5); White Blood Count 6.2 K/mm3 (4.5-10.0)
[2022-03-20 09:59] LABS: Alanine Aminotransferase 10 U/L (6-50); Alkaline Phosphatase 92 U/L (38-126); Anion Gap -1 mmol/L (8-16); Aspartate Amino Transferase 21 U/L (17-59); Bilirubin,Total 0.1 mg/dL (0.2-1.3); Blood Urea Nitrogen 23 mg/dL (9-20); Calcium 7.9 mg/dL (8.4-10.2); Carbon Dioxide 38 mmol/L (22-30); Chloride 101 mmol/L (98-107); Estimated CRCL calculation 47 ml/min; Estimated Glomerular Filt Rate 53; Glucose 89 mg/dL (65-110); Potassium 3.6 mmol/L (3.4-5.0); Sodium 138 mmol/L (137-145)
--- NOTE | 2022-03-20 10:49 | PCOTNOTE ---
Attempted OT evaluation, Patient is currently off the unit for a procedure, will follow.
[2022-03-20] MEDS: LACTATED RINGERS 1,000 ML 150 ML IV CONT (10:58)
--- NOTE | 2022-03-20 12:26 | SUR.OPER ---
EGD: [id number] COLON: [id number]
--- NOTE | 2022-03-20 13:03 | SUR.OPER ---
1240- ASCENDING COLON POLYPECTOMY X4. ONLY [address] ALFREDO VALDIVIA.
--- NOTE | 2022-03-20 15:53 | PM.IMPN ---
Subjective Date/time seen: 03/20/22 15:53 Review of Systems Review of Systems: All systems reviewed & are unremarkable except as noted in HPI and below Objective Data Vital Signs Vital Signs: Vital Signs - 24 hr 03/19/22 21:10 03/19/22 21:13 03/19/22 21:16 Temperature 97.8 F 97.7 F 97.7 F Pulse Rate 71 75 77 Respiratory Rate 18 18 20 Blood Pressure 130/58 L 126/68 99/52 L Pulse Oximetry 99 98 92 Oxygen Delivery Oxygen Flow Rate 03/19/22 21:33 03/20/22 05:38 03/20/22 08:56 Temperature 97.8 F 97.5 F L Pulse Rate 71 80 80 Respiratory Rate 18 18 Blood Pressure 130/58 L 138/97 H Pulse Oximetry 99 96 Oxygen Delivery Oxygen Flow Rate 03/20/22 08:00 03/20/22 10:53 03/20/22 10:54 Temperature 97.5 F L 97.5 F L Pulse Rate 74 80 Respiratory Rate 18 18 Blood Pressure 94/55 L 98/55 L Pulse Oximetry 96 98 100 Oxygen Delivery Nasal Cannula Oxygen Flow Rate 3 03/20/22 10:54 03/20/22 11:04 03/20/22 12:46 Temperature 97.5 F L 97.6 F Pulse Rate 79 81 65 Respiratory Rate 18 21 H 19 Blood Pressure 81/49 L 119/54 L 99/54 L Pulse Oximetry 99 97 100 Oxygen Delivery Nasal Cannula Nasal Cannula Oxygen Flow Rate 3 3 03/20/22 12:56 03/20/22 13:06 03/20/22 13:55 Temperature 96.8 F L Pulse Rate 69 74 77 Respiratory Rate 23 H 30 H 18 Blood Pressure 116/62 121/68 111/49 L Pulse Oximetry 98 98 85 L Oxygen Delivery Nasal Cannula Nasal Cannula Oxygen Flow Rate 3 3 03/20/22 14:00 03/20/22 14:29 03/20/22 15:44 Temperature 97.1 F L 96.9 F L 97.3 F L Pulse Rate 70 66 74 Respiratory Rate 18 18 18 Blood Pressure 108/53 L 102/53 L 105/56 L Pulse Oximetry 99 100 92 Oxygen Delivery Oxygen Flow Rate Intake/Output Intake/Output: Intake & Output 03/17/22 03/18/22 03/19/22 03/20/22 23:59 23:59 23:59 23:59 Intake Total 740 880 50 Output Total 0 1150 1400 Balance 119 -[phone] -[phone] Meds/Results Medications: Active Medications Generic Name Dose Route Start Last Admin Trade Name Freq PRN Reason Stop Dose Admin Albuterol 2 puff 03/18/22 18:19 Albuterol Sulfate (*Sp) Aerosol 1 Puff INHALATION QIDRT PRN dyspnea Atenolol 12.5 mg 03/19/22 09:00 03/20/22 08:56 Atenolol 12.5 Mg Tablet PO 12.5 mg DAILY MARY Administration Famotidine 20 mg 03/18/22 18:19 Famotidine 20 Mg Tablet PO DAILY PRN Indigestion Fluticasone Propionate 1 spray 03/18/22 18:19 Fluticasone Propionate 0.05% Na Spr 16 Gm Btl (*Bkc) NASAL DAILY PRN Allergy Symptoms Furosemide 20 mg 03/19/22 09:00 03/20/22 08:57 Furosemide 20 Mg Tablet PO 20 mg DAILY MARY Administration Home Med 1 each 03/19/22 12:00 03/20/22 15:16 Combivent Respimat Inhaler (Home Med) INHALATION 04/18/22 11:59 1 each QIDRT MARY Administration Isosorbide Mononitrate 30 mg 03/19/22 09:00 03/20/22 08:57 Isosorbide Mononitrate 30 Mg Tab.Er.24h PO 30 mg DAILY MARY Administration Montelukast Sodium 10 mg 03/19/22 09:00 03/20/22 08:56 Montelukast Sodium 10 Mg Tablet PO 10 mg DAILY MARY Administration Multivitamins/Minerals 1 tablet 03/19/22 09:00 03/20/22 08:57 Multivits W-Fe,Min Chewable Tablet PO 04/18/22 08:59 1 tablet DAILY MARY Administration Nitroglycerin 0.4 mg 03/18/22 18:19 Nitroglycerin Sl 0.4 Mg Tablet SUBLINGUAL DIRECTED PRN Chest pain Ondansetron HCl 4 mg 03/18/22 14:54 Ondansetron Inj 4 Mg/2 Ml Vial IV PUSH Q4H PRN Nausea Pantoprazole Sodium 40 mg 03/19/22 09:00 03/20/22 08:57 Pantoprazole Sodium Iv 40 Mg Vial IV PUSH 40 mg BID AMRY Administration Polyethylene Glycol 17 gm 03/19/22 09:00 03/20/22 10:51 Polyethylene Glycol 3350 17 Gm Powd.Pack PO Not Given DAILY MARY Potassium Chloride 20 meq 03/19/22 09:00 03/20/22 08:57 Potassium Chloride 20 Meq Tablet.Er PO 20 meq DAILY MARY Administration Fluticasone/Salmeterol 2 puff 03/20/22 20:00 Fluticasone
--- NOTE | 2022-03-20 15:58 | PM.DS ---
DS: Admitting Diagnosis Discharge Date 03/20 1600 Admitting Diagnosis Fall and possible syncope. DS: Discharge Diagnosis Discharge Diagnosis (1) Guaiac positive stools: Code(s): R19.5 - Other fecal abnormalities Status: Acute Assessment and Plan: Patient did have a positive Hemoccult stool and drop in H/H.? Gastroenterology has been consult and appreciate further recommendations.? Patient will be kept NPO after midnight.? Will avoid any anticoagulation at this time until seen by GI tomorrow for his colonoscopy, SCDs for DVT prophylaxis.? No tachycardia at this time. Protonix PO Daily. H&H has remained stable at 8.2 today, this appears to be around his baseline. Colonoscopy from today found multiple polyps which seem adenomatous in nature, melanosis coli, and internal hemorrhoids. Several of the polyps were resected via hot snare polypectomy, and pathology will be resulted in 7 days. GI advised that patient should avoid aspirin and NSAIDs for 7 days and resume his blood thinner in 3 days. Follow-up with GI upon discharge. (2) Frequent falls: Code(s): R29.6 - Repeated falls Status: Acute Assessment and Plan: Patient was found to be orthostatic during his stay, will discontinue his alfuzosin at this time until he follows up with his primary care provider. Patient has continued to be mildly hypotensive during his stay. I will hold his furosemide today, recheck orthostatics and BPs tomorrow, and see if this improves his hypotension. Will continue Atenolol. Orthostatics Don Hose hold lasix at this time. (3) Anemia: Code(s): D64.9 - Anemia, unspecified Status: Acute Assessment and Plan: As above. (4) COPD (chronic obstructive pulmonary disease): Qualifiers: COPD type: unspecified COPD Qualified Code(s): J44.9 - Chronic obstructive pulmonary disease, unspecified Code(s): J44.9 - Chronic obstructive pulmonary disease, unspecified Status: Acute Assessment and Plan: Patient continues to saturate well on his home 3 L of supplemental oxygen. He has no respiratory complaints at this time, and we have continued his home inhaler therapy while here at the hospital. Plan Of note patient also has a pedunculated cauliflower shaped silver dollar sized skin lesion the midline upper back. He reports that is known to be skin cancer and is supposed to have it removed after he leaves the hospital for this stay. DS: Summary Hospital Course Reason for hospitalization: Falls Hospital Course: See above for full hospital course Time Spent with Patient Time attestation: Total time spent providing and/or coordinating discharge services: DS: Data Data Completed and Pending Pending studies at discharge: Pending at discharge 03/20/22 12:46 Surgical [PTH] Routine Labs on day of discharge: Labs from last 24 hours 03/20/22 03/20/22 03/20/22 09:11 09:11 07:40 WBC 6.2 RBC 2.85 L Hgb 8.2 L Hct 27.1 L MCV 95.1 MCH 28.8 MCHC 30.3 L RDW 13.7 Plt Count 192 MPV 9.7 Sodium 138 Potassium 3.6 Chloride 101 Carbon Dioxide 38 H Anion Gap -1 L BUN 23 H Creatinine 1.30 Estim Creat Clear Calc 47 Estimated GFR 53 L Glucose 89 POC Capillary Glucose 98 Calcium 7.9 L Total Bilirubin 0.1 L AST 21 ALT 10 Alkaline Phosphatase 92 Total Protein 6.0 L Albumin 3.0 L 03/19/22 03/19/22 22:19 16:11 WBC RBC Hgb Hct MCV MCH MCHC RDW Plt Count MPV Sodium Potassium Chloride Carbon Dioxide Anion Gap BUN Creatinine Estim Creat Clear Calc Estimated GFR Glucose POC Capillary Glucose 97 108 H Calcium Total Bilirubin AST ALT Alkaline Phosphatase Total Protein Albumin Discharge Plan Discharge Consulting providers: Satnam Tran Patient Disposition: Home Health Service Discharge
[2022-03-20 16:18] LABS: Glucose Point of Care 79 mg/dl (65-105)
--- NOTE | 2022-03-20 16:19 | PM.IMPN ---
Progress Note: A&P Assessment and Plan (1) Guaiac positive stools: Code(s): R19.5 - Other fecal abnormalities Status: Acute Assessment and Plan: Patient did have a positive Hemoccult stool and drop in H/H.? Gastroenterology has been consult and appreciate further recommendations.? Patient will be kept NPO after midnight.? Will avoid any anticoagulation at this time until seen by GI tomorrow for his colonoscopy, SCDs for DVT prophylaxis.? No tachycardia at this time. Protonix PO Daily. H&H has remained stable at 8.2 today, this appears to be around his baseline. Colonoscopy from today found multiple polyps which seem adenomatous in nature, melanosis coli, and internal hemorrhoids. Several of the polyps were resected via hot snare polypectomy, and pathology will be resulted in 7 days. GI advised that patient should avoid aspirin and NSAIDs for 7 days and resume his blood thinner in 3 days. Follow-up with GI upon discharge. Hold Eliquis for 3 days and then re-initiate Hold aspirin for 7 days and then re-initiate (2) Frequent falls: Code(s): R29.6 - Repeated falls Status: Acute Assessment and Plan: Patient was found to be orthostatic during his stay, will discontinue his alfuzosin at this time until he follows up with his primary care provider. Patient has continued to be mildly hypotensive during his stay. I will hold his furosemide today, recheck orthostatics and BPs tomorrow, and see if this improves his hypotension. Will continue Atenolol. Orthostatics Don Hose Hold lasix at this time. If BPs stabilize tomorrow, patient ok for d/c. (3) Anemia: Code(s): D64.9 - Anemia, unspecified Status: Acute Assessment and Plan: As above. (4) COPD (chronic obstructive pulmonary disease): Qualifiers: COPD type: unspecified COPD Qualified Code(s): J44.9 - Chronic obstructive pulmonary disease, unspecified Code(s): J44.9 - Chronic obstructive pulmonary disease, unspecified Status: Acute Assessment and Plan: Patient continues to saturate well on his home 3 L of supplemental oxygen. He has no respiratory complaints at this time, and we have continued his home inhaler therapy while here at the hospital. Plan Of note patient also has a pedunculated cauliflower shaped silver dollar sized skin lesion the midline upper back. He reports that is known to be skin cancer and is supposed to have it removed after he leaves the hospital for this stay. Subjective Date/time seen: 03/20/22 16:19 81 yo male with known history of abdominal aortic aneurysm s/p repair, parkinsonism, hypotension, atrial fibrillation, and COPD on 3L home O2 who presents to us after a fall and possible syncope.? He states he is feeling well today. He has no complaints of chest pain, syncope, dizziness, shortness of breath, loose or bloody stools, nausea, or vomiting.? He continues with PT/OT during his stay. . Exam Narrative: GENERAL APPEARANCE: Alert and oriented x 3, in no apparent distress. HEENT:? PERRL, EOMI.? Sclerae anicteric. Moist mucous membranes. NECK:? Supple. No JVD or obvious carotid bruits. RESPIRATORY: Respirations are nonlabored. Breath sounds are equal bilaterally, he has supplemental oxygen. CARDIOVASCULAR:? Regular rate and rhythm with normal S1-S2. No murmurs, gallops, or rubs. GASTROINTESTINAL:? Soft, flat, and benign. No mass, tenderness, guarding, or rebound. No organomegaly or hernia. Bowel sounds are present. SKIN: Warm, dry, well perfused. Good turgor. large, 2.5 centimeter pedunculated oozing lesion on mid upper back. Known skin cancer. EXTREMITIES:? No cyanosis, clubbing, or edema. Radial and pedal pulses intact. NEUROLOGICAL:? Alert.? Cranial nerves 2-12 are grossly intact. No gross focal deficits to casual conversation. PSYCHIATRIC:? Pleasant and cooperative with normal mood and affect. Objective Data Vital Signs Vital Signs: Vital
--- NOTE | 2022-03-20 17:18 | PHAR ---
HOME MEDICATION VERIFIED BY PHARMACY: SYMBICORT 160 INHALER
--- NOTE | 2022-03-20 22:11 | PC.NURSE ---
Spoke with patient at beginning of shift while son was at bedside. Educated them on safety and precautions and using the bed alarm to prevent falls. Patient refused alarm and stated he would call for assistance before leaving the bed or transporting to the bedside commode.
[2022-03-21 00:02] LABS: Glucose Point of Care 99 mg/dl (65-105)
[2022-03-21 05:34] VITALS: BP 123/59; PULSE 80; RESP 20; TEMP 36.5; O2SAT 92
[2022-03-21 06:13] LABS: Hematocrit 26.6 % (42.0-52.0); Hemoglobin 7.9 g/dL (14.0-18.0); Mean Corpuscular HGB Conc 29.7 g/dl (32-36); Mean Corpuscular Hemoglobin 28.9 pg (26-34); Mean Corpuscular Volume 97.4 fl (80-100); Mean Platelet Volume 9.5 fl (7.4-10.4); Platelet Count Result 164 k/mm3 (150-375); Red Blood Count 2.73 M/mm3 (4.6-6.20); Red Cell Distribution Width 13.7 % (11.5-14.5); White Blood Count 7.1 K/mm3 (4.5-10.0)
[2022-03-21 06:40] LABS: Anion Gap 0 mmol/L (8-16); Blood Urea Nitrogen 21 mg/dL (9-20); Carbon Dioxide 37 mmol/L (22-30); Chloride 100 mmol/L (98-107); Estimated CRCL calculation 51 ml/min; Estimated Glomerular Filt Rate 58; Glucose 84 mg/dL (65-110); Potassium 3.7 mmol/L (3.4-5.0); Sodium 137 mmol/L (137-145)
[2022-03-21 07:25] LABS: Glucose Point of Care 80 mg/dl (65-105)
[2022-03-21 08:00] VITALS: BP 109/52; PULSE 74; RESP 20; TEMP 35.9; O2SAT 100
[2022-03-21 08:17] VITALS: O2SAT 97
--- NOTE | 2022-03-21 08:38 | WPDANESPN ---
Anes - Prog Note Post-Op Date/Time: 03/21/22 08:38 Cardiovascular status: normal Respiratory status: normal Airway patency: baseline Mental status: baseline Post-Op hydration status: normal Vital Signs: Last Vital Signs Temp 36.5 C 03/21/22 05:34 Pulse 80 03/21/22 05:34 Resp 20 03/21/22 05:34 BP 123/59 L 03/21/22 05:34 Pulse Ox 97 03/21/22 08:17 O2 Del Method Nasal Cannula 03/21/22 08:17 O2 Flow Rate 3 03/21/22 08:17 Pain Score (VAS): 0 I/O: Intake & Output 03/20/22 03/21/22 03/21/22 23:59 07:59 15:59 Intake Total 477 100 Output Total 600 Balance 477 -500 Laboratory Tests 03/21/22 05:54 03/21/22 05:54 03/20/22 03/20/22 03/20/22 09:11 09:11 16:04 WBC 6.2 RBC 2.85 L Hgb 8.2 L Hct 27.1 L MCV 95.1 MCH 28.8 MCHC 30.3 L RDW 13.7 Plt Count 192 MPV 9.7 Sodium 138 Potassium 3.6 Chloride 101 Carbon Dioxide 38 H Anion Gap -1 L BUN 23 H Creatinine 1.30 Estim Creat Clear Calc 47 Estimated GFR 53 L Glucose 89 POC Capillary Glucose 79 Calcium 7.9 L Total Bilirubin 0.1 L AST 21 ALT 10 Alkaline Phosphatase 92 Total Protein 6.0 L Albumin 3.0 L 03/20/22 03/21/22 03/21/22 22:47 05:54 05:54 WBC 7.1 RBC 2.73 L Hgb 7.9 L Hct 26.6 L MCV 97.4 MCH 28.9 MCHC 29.7 L RDW 13.7 Plt Count 164 MPV 9.5 Sodium 137 Potassium 3.7 Chloride 100 Carbon Dioxide 37 H Anion Gap 0 L BUN 21 H Creatinine 1.20 Estim Creat Clear Calc 51 Estimated GFR 58 L Glucose 84 POC Capillary Glucose 99 Calcium 8.0 L Total Bilirubin AST ALT Alkaline Phosphatase Total Protein Albumin 03/21/22 07:19 WBC RBC Hgb Hct MCV MCH MCHC RDW Plt Count MPV Sodium Potassium Chloride Carbon Dioxide Anion Gap BUN Creatinine Estim Creat Clear Calc Estimated GFR Glucose POC Capillary Glucose 80 Calcium Total Bilirubin AST ALT Alkaline Phosphatase Total Protein Albumin Post-procedural complaints: none Patient Feedback: Patient satisfied with anesthetic care.
[2022-03-21] MEDS: CHOLECALCIFEROL 1,000 UNITS TABLET 5000 UNITS PO (08:46)
[2022-03-21 08:47] VITALS: PULSE 70
[2022-03-21] MEDS: MULTIVITS W-FE,MIN CHEWABLE TABLET 1 TABLET PO (08:47)
[2022-03-21] MEDS: POTASSIUM CHLORIDE 20 MEQ TABLET.ER PO (08:47)
[2022-03-21] MEDS: atenoloL 12.5 MG TABLET PO (08:47)
[2022-03-21] MEDS: MONTELUKAST SODIUM 10 MG TABLET PO (08:47)
[2022-03-21] MEDS: ISOSORBIDE MONONITRATE 30 MG TAB.ER.24H PO (08:47)
[2022-03-21] MEDS: SENNOSIDES 8.6 MG TABLET PO (08:48)
[2022-03-21] MEDS: PANTOPRAZOLE 40 MG TABLET PO (08:49)
--- NOTE | 2022-03-21 09:10 | WPDGIPROGNO ---
Progress Note: A&P Assessment and Plan (1) Guaiac positive stools: Code(s): R19.5 - Other fecal abnormalities Status: Acute Assessment and Plan: Patient did have a positive Hemoccult stool and drop in H/H.? Protonix PO Daily. H&H has remained stable at 8.2 today, this appears to be around his baseline. Colonoscopy from today found multiple polyps which seem adenomatous in nature, melanosis coli, and internal hemorrhoids. Several of the polyps were resected via hot snare polypectomy, and pathology will be resulted in 7 days. He should avoid aspirin and NSAIDs for 7 days and resume his blood thinner in 3 days. Follow-up with GI upon discharge. Hold Eliquis for 3 days and then re-initiate Hold aspirin for 7 days and then re-initiate (2) Anemia: Code(s): D64.9 - Anemia, unspecified Status: Acute Assessment and Plan: he is chronically anemic, but his hemoglobin was 11 2 years ago. Now it is 7.8. EGD was unremarkable and colonoscopy revealed multiple polyps, some fairly large which could have resulted in some blood loss. (3) Paroxysmal atrial fibrillation: Code(s): I48.0 - Paroxysmal atrial fibrillation Status: Acute Assessment and Plan: He is on Eliquis for that although we are holding it for couple of days because of the polypectomy (4) Chronic kidney disease, stage 3: Qualifiers: Chronic kidney disease stage 3 subtype: stage 3b (GFR 30-44) Qualified Code(s): N18.32 - Chronic kidney disease, stage 3b Code(s): N18.3 - Chronic kidney disease, stage 3 (moderate) Status: Acute Subjective Date/time seen: 03/21/22 09:10 he has no complaints this morning. He has had no bowel movements. He has has seen no blood in his stools. Denies abdominal pain. He is hoping to go home today. He has had some issues with his blood pressure Review of Systems Review of Systems: All systems reviewed & are unremarkable except as noted in HPI and below Exam Const: General: alert Orientation/consciousness: patient oriented x3 Resp: Auscultation: clear to auscultation bilaterally Cardio: Rhythm: regular rhythm GI: GI Palp: Yes Soft to palpation and No Tenderness to palpation present (GI) Neuro: General: patient oriented x3 Objective Data Vital Signs Vital Signs: Vital Signs - 24 hr 03/20/22 10:53 03/20/22 10:54 03/20/22 10:54 Temperature 36.4 C L 36.4 C L 36.4 C L Pulse Rate 74 80 79 Respiratory Rate 18 18 18 Blood Pressure 94/55 L 98/55 L 81/49 L Pulse Oximetry 98 100 99 Oxygen Delivery Oxygen Flow Rate 03/20/22 11:04 03/20/22 12:46 03/20/22 12:56 Temperature 36.4 C Pulse Rate 81 65 69 Respiratory Rate 21 H 19 23 H Blood Pressure 119/54 L 99/54 L 116/62 Pulse Oximetry 97 100 98 Oxygen Delivery Nasal Cannula Nasal Cannula Nasal Cannula Oxygen Flow Rate 3 3 3 03/20/22 13:06 03/20/22 13:55 03/20/22 14:00 Temperature 36.0 C L 36.2 C L Pulse Rate 74 77 70 Respiratory Rate 30 H 18 18 Blood Pressure 121/68 111/49 L 108/53 L Pulse Oximetry 98 85 L 99 Oxygen Delivery Nasal Cannula Oxygen Flow Rate 3 03/20/22 14:29 03/20/22 15:44 03/20/22 20:25 Temperature 36.1 C L 36.3 C L 36.9 C Pulse Rate 66 74 73 Respiratory Rate 18 18 20 Blood Pressure 102/53 L 105/56 L 121/57 L Pulse Oximetry 100 92 94 Oxygen Delivery Oxygen Flow Rate 03/20/22 20:28 03/20/22 20:31 03/20/22 21:35 Temperature 36.8 C 36.5 C 36.9 C Pulse Rate 76 77 73 Respiratory Rate 20 20 20 Blood Pressure 108/60 99/54 L 121/57 L Pulse Oximetry 96 93 94 Oxygen Delivery Oxygen Flow Rate 03/21/22 05:34 03/21/22 08:17 03/21/22 08:47 Temperature 36.5 C Pulse Rate 80 70 Respiratory Rate 20 Blood Pressure 123/59 L Pulse Oximetry 92 97 Oxygen Delivery Nasal Cannula Oxygen Flow Rate 3 Intake/Output Intake/Output: Intake & Output 03/18/22 03/19/22 03/20/22 03/21/22 23:59 23:59 23:59 23:59 Intake Total 740 880 52
[2022-03-21 09:15] VITALS: O2SAT 96
--- NOTE | 2022-03-21 10:49 | PM.DS ---
DS: Admitting Diagnosis Discharge Date 03/21/2022 Admitting Diagnosis Anemia Physical debility COPD Positive occult stool DS: Discharge Diagnosis Discharge Diagnosis (1) Guaiac positive stools: Code(s): R19.5 - Other fecal abnormalities Status: Acute Assessment and Plan: Monitor serum electrolytes, CBC, hemoglobin/hematocrit q.8 hours. If hemoglobin drops below 7 transfuse packed red blood cells Monitor for bloody bowel movements,chest pain,SOB or dizziness/lightheadedness Gastroenterology was consulted and performed a colonoscopy and an EGD. Pantoprazole BID Diet: NPO DVT Px: SCDs Avoid anti-coagulations (2) Frequent falls: Code(s): R29.6 - Repeated falls Status: Acute Assessment and Plan: PT/OT eval and treat (3) Anemia: Code(s): D64.9 - Anemia, unspecified Status: Acute Assessment and Plan: 2/to above (4) COPD (chronic obstructive pulmonary disease): Qualifiers: COPD type: unspecified COPD Qualified Code(s): J44.9 - Chronic obstructive pulmonary disease, unspecified Code(s): J44.9 - Chronic obstructive pulmonary disease, unspecified Status: Acute Assessment and Plan: Continue home medications DS: Summary Hospital Course Reason for hospitalization: Acute anemia GI bleed COPD Physical debility Hospital Course: 81-year-old gentleman ?has a known history of abdominal aortic aneurysm, parkinsonism, hypotension, atrial fibrillation, and COPD.? Patient states he wears oxygen at home at 3 L per nasal cannula at all times.? Patient states he has never been diagnosed with Parkinson's disease, but has been told he has parkinsonism symptoms.? Patient does have tremors to bilateral upper extremities. presented emergency room with complaints of falls.? Patient states he has been admitted multiple times to the hospital for falls and hypotension.? Patient states he has had multiple medication adjustments including discontinuation of his triamterene, decrease dosage of atenolol and Lasix.? Patient states today he was standing up and trying to put something in a cabinet he turned around and he fell backwards onto his butt and is unsure if he lost consciousness.? Patient states he was dizzy and did have some tunnel vision, but he is not sure if he told lost consciousness.? Patient's family is at bedside states that they do not believe he lost consciousness.? Patient states he has had weakness in his knees that has worsened recently.? Patient was recently admitted on 02/23/2022 for a fall.? At that point time patient had fallen in the bathroom and at that time he was also unsure if he lost consciousness.? Patient does have bruising to bilateral arms and under his right eye from his previous falls.? Patient states he has been taking all medications without any difficulty.? Patient denies any chest pain, abnormal shortness of breath, palpitations, melena, hematochezia, or hematemesis.?? Upon further evaluation in the emergency department labs and imaging were obtained. Patient had hemoglobin of 7.8, WBC 6.5, hematocrit 26.7 and platelet of 179, sodium 142, potassium 3.9, BUN 30 and creatinine 1.4. Negative troponins and negative UA. LFTs WNL. CT of the lumbar spine was obtained during the patient's hospitalization due to compute complaints mild back pain. Revealed mild chronic compression fractures of the L1, L4 and L5 and he was suggested to follow-up with his primary care provider. CT of the cervical spine did not reveal acute fracture. Shoulder x-ray did not reveal acute abnormality nor did his chest x-ray. Patient was admitted for mild acute anemia and monitor hemoglobin hematocrit during his hospitalization. Monitored for 6 hours and gastroenterology was consulted. Gastroenterology was able to perform a colonoscopy and EGD in his hospitalization. Colonoscopy from today found multiple polyps which seem adenomatous in nature, melanosis coli, and internal
[2022-03-21 11:11] LABS: Glucose Point of Care 125 mg/dl (65-105)
[2022-03-21 11:27] VITALS: BP 84/50; PULSE 80; RESP 19; TEMP 35.9; O2SAT 98
== END 2022-03-21 12:15 | disposition home health service (06) | DRG 812 ==
LOC: ANHED 10:25 → ANH3MEDSUR 16:38
PROVIDERS: Internal Medicine Gastroenterology; Student in an Organized Health Care Education/Training Program; Admitting Provider Internal Medicine; Emergency Provider General Practice; PCP Emergency Medicine; Visit Provider Nurse Practitioner Family
PROC: 0DJ08ZZ Inspection of Upper Intestinal Tract, Via Natural or Artificial Opening Endoscopic (ICD-10-PCS; CPT 43235; principal; 2022-03-20 12:30)
DX: D50.0 Iron deficiency anemia secondary to blood loss (chronic) (principal); J96.11 Chronic respiratory failure with hypoxia; Z20.822 Contact with and (suspected) exposure to COVID-19; K57.30 Diverticulosis of large intestine without perforation or abscess without bleeding; D12.3 Benign neoplasm of transverse colon; D12.2 Benign neoplasm of ascending colon; I12.9 Hypertensive chronic kidney disease with stage 1 through stage 4 chronic kidney disease, or unspecified chronic kidney disease; N18.32 Chronic kidney disease, stage 3b; E78.5 Hyperlipidemia, unspecified; I48.0 Paroxysmal atrial fibrillation; J44.9 Chronic obstructive pulmonary disease, unspecified; F41.8 Other specified anxiety disorders; I25.10 Atherosclerotic heart disease of native coronary artery without angina pectoris; M19.90 Unspecified osteoarthritis, unspecified site; K63.89 Other specified diseases of intestine; K64.8 Other hemorrhoids; N40.0 Benign prostatic hyperplasia without lower urinary tract symptoms; I71.4 Abdominal aortic aneurysm, without rupture; G20 Parkinson's disease; R29.6 Repeated falls; R19.5 Other fecal abnormalities; W19.XXXA Unspecified fall, initial encounter; Z79.01 Long term (current) use of anticoagulants; Z99.81 Dependence on supplemental oxygen; Z86.711 Personal history of pulmonary embolism; Z85.51 Personal history of malignant neoplasm of bladder; Z98.42 Cataract extraction status, left eye; Z98.41 Cataract extraction status, right eye; Z87.891 Personal history of nicotine dependence; E66.9 Obesity, unspecified; Z68.31 Body mass index [BMI] 31.0-31.9, adult; S40.022A Contusion of left upper arm, initial encounter; S40.021A Contusion of right upper arm, initial encounter; S00.83XA Contusion of other part of head, initial encounter
CPT/HCPCS: 36415; 36600; 70450; 71045; 72125; 72131; 73030; 80048; 80053; 81003; 82375; 82805; 82948; 83050; 83735; 84484; 85014; 85018; 85025; 85027; 85610; 85730; 87081; 88305; 93005; 94640; 96361; 96374; 96376; 97110; 97161; 97165; 99285; A9270; C9113; C9803; G0378; J2001; J2704; J7040; J7120; U0003; U0005

== ENCOUNTER 2022-03-28 23:39 | Inpatient (IN) | payer MEDICARE, SELFPAY ==
--- NOTE | ~2022-03-28 | XR_ITS ---
EXAMINATION: XR chest 1V portable DATE: 03/29/2022 00:40 INDICATION: Shortness of breath. TECHNIQUE: A single frontal view of the chest was obtained. COMPARISON: Chest single view 03/18/2022, chest CT 01/27/2022 FINDINGS: There are lucencies in the lungs, consistent with emphysema. There are coarse interstitial opacities throughout right lung and in left mid and lower lung zones. No pleural effusion or pneumoth orax. The heart size is normal. The aorta is tortuous. IMPRESSION: 1. Worsened diffuse lung disease, right worse than left, consistent with pulmonary edema versus pneum onia superimposed on emphysema. Reviewed, dictated and finalized at location A. IMPRESSION: 1. Worsened diffuse lung disease, right worse than left, consistent with pulmon zeynep edema versus pneumonia superimposed on emphysema.
[2022-03-28 23:42] VITALS: BP 169/111; PULSE 112; RESP 25; TEMP 37.2; O2SAT 100
[2022-03-28 23:45] VITALS: PULSE 113; RESP 24; O2SAT 97
--- NOTE | 2022-03-28 23:47 | ED.GENADULT ---
HPI - General Adult General Chief complaint: Shortness of Breath/Dyspnea Stated complaint: N/V/D Time Seen by Provider: 03/28/22 23:40 History of Present Illness HPI narrative: 81-year-old male presented to the emergency department for nausea and worsening shortness of breath. Patient did start taking finasteride yesterday, he has taken it for a total of 2 doses. states that the patient also restarted his flecainide as well. Patient states he started developing some worsening shortness of breath tonight. Patient was saturating at 85% on room air. We have documented the patient normally on 5 L by nasal cannula. Patient does have baseline tremor. Patient denies any increase in his tremor. Patient does have a significant past medical history of COPD Related Data Home Medications Medication Instructions Recorded Confirmed budesonide-formoterol HFA 160 2 puff inhalation BID 10/27/19 03/29/22 mcg-4.5 mcg/actuation aerosol inhaler (Symbicort) fluticasone propionate 50 1 spray intranasal DAILY PRN 10/27/19 03/29/22 mcg/actuation nasal Allergy Symptoms spray,suspension ipratropium 20 mcg-albuterol 100 1 puff inhalation QID 10/27/19 03/29/22 mcg/actuation mist for inhalation (Combivent Respimat) isosorbide mononitrate 30 mg 30 mg PO DAILY 10/27/19 03/29/22 tablet,extended release 24 hr apixaban 2.5 mg tablet (Eliquis) 2.5 mg PO BID 02/23/20 03/29/22 aspirin 81 mg chewable tablet 81 mg PO DAILY 02/23/20 03/29/22 cholecalciferol (vitamin D3) 125 125 mcg PO DAILY 02/23/20 03/29/22 mcg (5,000 unit) tablet (Vitamin D3) nitroglycerin 0.4 mg sublingual 0.4 mg sublingual DIRECTED PRN 02/23/20 03/29/22 tablet Chest pain sennosides 15 mg tablet (Perdiem 30 mg PO DAILY 02/23/20 03/29/22 Overnight Relief) albuterol sulfate 90 mcg/actuation 2 puff inhalation QID PRN dyspnea 07/12/21 03/29/22 aerosol inhaler atenolol 25 mg tablet 12.5 mg PO DAILY 03/18/22 03/29/22 famotidine 20 mg tablet (Pepcid) 20 mg PO DAILY PRN Indigestion 03/18/22 03/29/22 furosemide 40 mg tablet 0.5 tablet PO DAILY 03/18/22 03/29/22 Allergies Allergy/AdvReac Type Severity Reaction Status Date / Time budesonide Allergy Severe Difficulty Verified 03/20/22 11:00 [From PBS-Bio] Breathing formoterol Allergy Severe Difficulty Verified 03/20/22 11:00 [From PBS-Bio] Breathing glycopyrrolate Allergy Severe Difficulty Verified 03/20/22 11:00 [From PBS-Bio] Breathing tetanus and diphtheria Allergy Severe FEVER, Verified 03/20/22 11:00 toxoids CHILLS clindamycin Allergy Unknown RASH Verified 03/20/22 11:00 amiodarone AdvReac Severe liver Verified 03/20/22 11:00 toxicity pantoprazole AdvReac Mild Nausea Verified 03/20/22 11:00 Review of Systems Review of Systems: CONSTITUTIONAL: Denies fever, chills, or sweats. EYES: Denies visual changes, redness, or discharge. ENT: Denies rhinorrhea, congestion, sore throat, or otalgia. CARDIOVASCULAR: Denies chest pain, palpitations, or edema. RESPIRATORY: See HPI GASTROINTESTINAL: Denies abdominal pain, nausea, vomiting, or diarrhea. GENITOURINARY: Denies dysuria or hematuria. SKIN: Denies rash or itching. MUSCULOSKELETAL: Denies back pain, joint pain, or myalgia. NEUROLOGIC: Baseline tremor is slightly worsened PMFSH Past Medical History Medical History Atrial flutter with rapid ventricular response (~03/2017) Status post DC cardioversion. Benign prostatic hyperplasia Bladder cancer (~06/2019) Noninvasive low-grade papillary urothelial carcinoma. Bowel obstruction Chronic anemia Chronic kidney disease, stage 3 Baseline creatinine ranges between 1.3 and 1.50. Chronic obstructive pulmonary disease Chronic respiratory failure with hypoxia, on home oxygen therapy Compression fracture Chronic compression fractures in the low thoracic and lumbar spine. Coronary artery disease (~05/2016) Ca
[2022-03-28 23:55] VITALS: O2SAT 100
[2022-03-29] VITALS (29 sets, daily range): BP systolic 103–158; BP diastolic 66–88; PULSE 85–111; RESP 18–32; TEMP 36.5–37; O2SAT 90–100; BMI 30.2
[2022-03-29] MEDS: ALBUTEROL SULFATE NEB 2.5 MG/3 ML INH 5 MG INHALATION ×3 (00:06→23:25)
[2022-03-29 00:28] LABS: Basophils Percent Auto 0.2 % (0.2-1.2); Eosinophils Absolute Auto 0.3 K/mm3 (0-0.3); Eosinophils Percent Auto 4.5 % (0-4.4); Hematocrit 28.5 % (42.0-52.0); Hemoglobin 8.5 g/dL (14.0-18.0); Immature Granulocyte Absolute 0.04 K/mm3 (0.00-0.031); Immature Granulocyte Percent A 0.7 % (0-0.5); Lymphocytes Absolute Auto 0.45 K/mm3 (0.9-3.2); Lymphocytes Percent Auto 7.5 % (18.3-44.2); Mean Corpuscular HGB Conc 29.8 g/dl (32-36); Mean Corpuscular Hemoglobin 28.5 pg (26-34); Mean Corpuscular Volume 95.6 fl (80-100); Mean Platelet Volume 10.1 fl (7.4-10.4); Monocytes Absolute Auto 0.8 K/mm3 (0.1-0.6); Monocytes Percent Auto 12.5 % (2.6-8.5); Neutrophils Absolute Auto 4.5 K/mm3 (1.3-6.7); Neutrophils Percent Auto 74.6 % (45.5-73.1); Platelet Count Result 209 k/mm3 (150-375); Red Blood Count 2.98 M/mm3 (4.6-6.20)
[2022-03-29 00:47] LABS: Alanine Aminotransferase 20 U/L (6-50); Albumin Level 3.6 g/dL (3.5-5.1); Alkaline Phosphatase 82 U/L (38-126); Anion Gap 5 mmol/L (8-16); Aspartate Amino Transferase 27 U/L (17-59); Bilirubin,Total 0.2 mg/dL (0.2-1.3); Blood Urea Nitrogen 25 mg/dL (9-20); Calcium 8.7 mg/dL (8.4-10.2); Carbon Dioxide 37 mmol/L (22-30); Chloride 100 mmol/L (98-107); Estimated CRCL calculation 46 ml/min; Estimated Glomerular Filt Rate 53; Glucose 117 mg/dL (65-110); Potassium 3.9 mmol/L (3.4-5.0); Sodium 142 mmol/L (137-145)
[2022-03-29 00:51] LABS: Anisocytosis 1+ (NORMAL); Platelet Estimate Adequate (Adequate)
[2022-03-29 00:52] LABS: Hypochromasia 1+ (NORMAL)
[2022-03-29 01:27] LABS: NT Pro B Type Natriuretic Pept 1810 pg/mL (5-100)
[2022-03-29 02:12] LABS: Influenza A QL RT-PCR Negative (Negative); Influenza B QL RT-PCR Negative (Negative); SARS-CoV-2 RNA PCR Negative
[2022-03-29 02:14] LABS: Alveolar/Arterial O2 Gradient 122.1 mmHg; Base Excess ABG 7.3 mEq/l (+/-2.0); Fractional Inspired Oxygen 35 %; HCO3 ABG 33.4 mEq/l (22.0-26.0); Oxygen Content ABG 10.5 %vol (16.0-22.0); Oxygen Saturation ABG 90.3 % (95.0-100.0); Oxyhemoglobin 88.1 % THb (90.0-100.0); PCO2 ABG 57.4 mmHg (35.0-45.0); PO2 ABG 60.7 mmHg (80.0-100.0); PO2 FiO2 Ratio Arterial Blood 1.73 %; Total Hemoglobin 8.4 g/dL (12.0-18.0); pH ABG 7.383 (7.350-7.450)
[2022-03-29 02:15] LABS: Device NON-INVASIVE VENT; Modified Allen's Test Pass; Non-Invasive Expiratory Pressure 5 CMH2O; Non-Invasive Inspiratory Pressure 10 CMH2O; Non-Invasive Vent Rate 12 /MIN; Site Drawn LEFT RADIAL
[2022-03-29] MEDS: FUROSEMIDE INJ 40 MG/4 ML VIAL IV PUSH (03:33)
--- NOTE | 2022-03-29 04:52 | ADMGEN ---
This patient, Kenan Grubbs, was admitted to IMU Room 232-01. Patient/family oriented to hospital policies and general routines including ID bracelet, bed and alarms, visiting hours, pain management, procedures, bathroom and other care routines, personal items, smoking policy, room service/diet, and visiting hours. Information on how to activate the Rapid Response Team has been discussed. Patient/Family are encouraged to report perceived risks to care and to ask questions if they do not understand what they are told or what they should do.
[2022-03-29 05:37] LABS: Appearance Urine Clear (Clear); Bilirubin Urine Negative (Negative); Color Urine Yellow (Yellow); Glucose Urine UA Negative (Negative); Ketones Urine Negative (Negative); Leukocyte Esterase Ur Negative LEU/UL (Negative); Nitrate Urine Negative (Negative); Protein Urine Negative (Negative); Specific Grav Ur 1.015 (1.001-1.035); Urobilinogen Urine 0.2 mg/dL (<2.0); pH Urine 5.5 (5.0-9.0)
[2022-03-29 05:39] LABS: Mucus Urine Rare /lpf; RBC Urine 0-2 /hpf (0-2); Squamous Epithelial Cell Urine Rare /hpf (Few); WBC Urine 0-3 /hpf
[2022-03-29 05:41] LABS: Add Urine Microscopic? YES; Blood Urine Trace (Negative)
--- NOTE | 2022-03-29 07:20 | PM.IMHP ---
H&P: HPI History of Present Illness Date/Time: 03/29/22 07:20 Chief Complaint: shortness of breath Narrative: 81M with a past medical history of AAA repair 2003, COPD on 3LNC continuous, coronary artery disease, chronic kidney disease, atrial flutter, tremor, depression, BPH with urinary retention, anxiety who presented to the ED with shortness of breath. Patient is a poor historian and says he thinks he was brought here for shortness of breath. When asked if the shortness of breath has been worsening over the last few days, he says he doesn't know. Daughter says she sent him to the ED because she believes he is having a side effect from finasteride. She says the patient started the finasteride caused him to feel tired and have chills for the past two days. Daughter says she always reads the side effects of the medications the patient has and says he is having every side effect listed on the finasteride handout given by the pharmacist. She says the patient uses 3.5L at rest and will go up 5L with walking. In the ED, BNP 1810, CXR with pulmonary edema. ABG with hypercarbia. Given methylprednisolone and duo neb. Review of Systems Constitutional: Constitutional: Denies chills ENT: Denies nasal congestion and Reports nasal discharge Comments: chronic nasal discharge Cardiovascular: Cardiovascular: Denies chest pain, Reports pedal edema, Denies leg edema and Denies lightheadedness Comments: foot swelling is chronic in the left foot Respiratory: Respiratory: Reports dyspnea Gastrointestinal: Gastrointestinal: Denies abdominal pain, Denies nausea and Denies vomiting Genitourinary: Genitourinary: Denies dysuria [facility] Past Medical History Medical History (Updated 03/29/22 @ 12:52 by Alda Miller MD) Atrial flutter with rapid ventricular response (~03/2017) Status post DC cardioversion. Benign prostatic hyperplasia Bladder cancer (~06/2019) Noninvasive low-grade papillary urothelial carcinoma. Bowel obstruction Chronic anemia Chronic kidney disease, stage 3 Baseline creatinine ranges between 1.3 and 1.50. Chronic obstructive pulmonary disease Chronic respiratory failure with hypoxia, on home oxygen therapy Compression fracture Chronic compression fractures in the low thoracic and lumbar spine. Coronary artery disease (~05/2016) Cardiac catheterization per Dr. Bills showed a 99% mid RCA lesion with unsuccessful PTCA as lesion was unable to be crossed. Depression with anxiety Essential hypertension Hyperlipidemia Osteoarthritis Paroxysmal atrial fibrillation Pneumonia Pulmonary embolism Tremor Surgical History Surgical History History of abdominal aortic aneurysm repair (~2003) History of cardiac cath History of cataract extraction History of cholecystectomy History of inguinal hernia repair Status post surgical removal and fulguration of bladder neoplasm (~06/2019) Family History Family History Mother Acute myocardial infarction Father Aortic aneurysm Sibling Aortic aneurysm Social History Social History Social History: The patient lives in [place]. He is . His daughter lives at home with him. 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 He was a heavy smoker, up to 2 packs of cigarettes per day for 45 years, and he ultimately quit in 1999. He denies alcohol and drug abuse. He designates his daughter, Brandy Watt, as his surrogate decision maker and he wishes to be a full code. Smoking status: Former smoker Second hand tobacco smoke exposure: No Alcohol intake: current Substance use: current Substance use type: does not use Additional living arrangements comments: Lives at home with daughter
[2022-03-29 08:57] LABS: Alveolar/Arterial O2 Gradient 114.1 mmHg; Base Excess ABG 10.1 mEq/l (+/-2.0); Fractional Inspired Oxygen 35 %; HCO3 ABG 36.3 mEq/l (22.0-26.0); Oxygen Saturation ABG 92.5 % (95.0-100.0); Oxyhemoglobin 90.2 % THb (90.0-100.0); PCO2 ABG 59.8 mmHg (35.0-45.0); PO2 ABG 65.9 mmHg (80.0-100.0); PO2 FiO2 Ratio Arterial Blood 1.88 %; Total Hemoglobin 8.6 g/dL (12.0-18.0); pH ABG 7.401 (7.350-7.450)
[2022-03-29 08:58] LABS: Device BIPAP; Modified Allen's Test Pass; Site Drawn RIGHT RADIAL
[2022-03-29 09:09] LABS: Expiratory Pressure 5 cmH2O; Inspiratory Pressure 10 cmH2O
[2022-03-29] MEDS: CHOLECALCIFEROL 1,000 UNITS TABLET 5000 UNITS PO (09:24)
[2022-03-29] MEDS: ISOSORBIDE MONONITRATE 30 MG TAB.ER.24H PO (09:25)
[2022-03-29] MEDS: FUROSEMIDE INJ 40 MG/4 ML VIAL 20 MG IV PUSH ×2 (09:25→20:27)
[2022-03-29] MEDS: ASPIRIN 81 MG CHEWABLE TABLET PO (09:25)
[2022-03-29] MEDS: atenoloL 12.5 MG TABLET PO (09:25)
[2022-03-29] MEDS: MONTELUKAST SODIUM 10 MG TABLET PO (09:25)
[2022-03-29] MEDS: FINASTERIDE 5 MG TABLET PO (09:25)
[2022-03-29] MEDS: APIXABAN 2.5 MG TABLET PO ×2 (09:25→17:55)
[2022-03-29] MEDS: FLECAINIDE ACETATE 100 MG TABLET PO ×2 (13:47→20:27)
[2022-03-29] MEDS: ALBUTEROL SULFATE NEB 2.5 MG/0.5 ML INH 5 MG (14:42)
[2022-03-29] MEDS: IPRATROPIUM BR 0.02% INH SOLN 0.5 MG/2.5 ML VIAL (14:48)
--- NOTE | 2022-03-29 16:15 | P.PNCROSS_ITS ---
Event Note Event Note Event Note: Clarified with POA, patient takes Symbicort at home without developing difficul ty breathing. Per the daughter the formoterol allergy is specific to the Breztri Aerosphere inhalers.
--- NOTE | 2022-03-29 16:15 | PM.EVENT ---
Event Note Event Note Event Note: Clarified with POA, patient takes Symbicort at home without developing difficulty breathing. Per the daughter the formoterol allergy is specific to the Breztri Aerosphere inhalers.
[2022-03-29] MEDS: methylPREDNISolone SOD SUCC 125 MG VIAL 60 MG IV PUSH ×2 (17:55→20:28)
[2022-03-29] MEDS: TAMSULOSIN HCL 0.4 MG CAPSULE PO (17:55)
[2022-03-30] VITALS (30 sets, daily range): BP systolic 120–141; BP diastolic 50–74; PULSE 81–105; RESP 16–22; TEMP 36.3–36.8; O2SAT 92–100
[2022-03-30] MEDS: ALBUTEROL SULFATE NEB 2.5 MG/3 ML INH 5 MG INHALATION ×5 (03:56→23:04)
[2022-03-30] MEDS: methylPREDNISolone SOD SUCC 125 MG VIAL 60 MG IV PUSH (06:12)
--- NOTE | 2022-03-30 08:28 | PM.IMPN ---
Progress Note: A&P Assessment and Plan (1) Acute and chronic respiratory failure: Code(s): J96.20 - Acute and chronic respiratory failure, unspecified whether with hypoxia or hypercapnia Status: Acute Assessment and Plan: Required BIPAP in the ED. Flu a/b and COVID19 negative. No pneumonia on CXR. Chronic anticoagulation for previous PE and a fib. BNP 1810 and CXR with pulmonary edema. Likely increased oxygen requirement due to COPD exacerbation and decompensated heart failure. Negative 1.5L yesterday. Clinically improved. -Will continue BIPAP and wean to nasal cannula with goal 3-5LPM oxygen -Albuterol ipratropium neb q4h scheduled -Daughter refused to allow nursing to give the patient methylprednisolone -Ordered prednisone 40 mg to start tomorrow -Furosemide 20 mg IV BID -Monitor and replete lytes (2) COPD with acute exacerbation: Code(s): J44.1 - Chronic obstructive pulmonary disease with (acute) exacerbation Status: Acute Assessment and Plan: Flu & COVID19 negative. No evidence of pneumonia at this time. Will defer antibiotics. -Albuterol neb qw4h scheduled -Discontinued Methylprednisolone 60 mg IV q8h -Prednisone 40 mg po daily ordered for tomorrow (3) Hypokalemia: Code(s): E87.6 - Hypokalemia Status: Acute Assessment and Plan: 3.1 this morning. Ordered 40 mg po TIDWM for today. -Recheck BMP at 1600. (4) Coronary artery disease: Onset Date: ~05/2016 Qualifiers: Coronary Disease-Associated Artery/Lesion type: [place] artery [place] vs. transplanted heart: [place] heart Associated angina: without angina Qualified Code(s): I25.10 - Atherosclerotic heart disease of [place] coronary artery without angina pectoris Code(s): I25.10 - Atherosclerotic heart disease of [place] coronary artery without angina pectoris Status: Acute Assessment and Plan: On bb, asa. Follows with Cardiology. Will continue home medications. February 2020 Lexiscan showed no inducible ischemia. -Continue asa, bb. May benefit from statin but as patient follows with Cardiology will defer and allow them to add a statin outpatient. (5) Chronic kidney disease, stage 3: Qualifiers: Chronic kidney disease stage 3 subtype: stage 3b (GFR 30-44) Qualified Code(s): N18.32 - Chronic kidney disease, stage 3b Code(s): N18.3 - Chronic kidney disease, stage 3 (moderate) Status: Acute Assessment and Plan: Baseline creatinine is 1.4-1.6. Stable. Will monitor. (6) Anemia: Code(s): D64.9 - Anemia, unspecified Status: Acute Assessment and Plan: Chronic likely multifactorial from CKD and chronic illness. Had colonoscopy due to concern for GIB 03/20/22 that showed melanosis coli, internal hemorrhoids, diverticulosis, transverse and ascending colon polyps. No bleeding. Stable. Will monitor. (7) Paroxysmal atrial fibrillation: Code(s): I48.0 - Paroxysmal atrial fibrillation Status: Acute Assessment and Plan: On apixaban and flecainide 100 mg BID at home. Rate controlled. -Tele -Continue home medications (8) Chronic obstructive pulmonary disease: Qualifiers: COPD type: unspecified COPD Qualified Code(s): J44.9 - Chronic obstructive pulmonary disease, unspecified Code(s): J44.9 - Chronic obstructive pulmonary disease, unspecified Status: Acute Assessment and Plan: Takes Combivent and Symbicort at home. Holding for now with acute exacerbation. Will plan to restart for discharge. Additional Plan Patient is fully alert and oriented and chose to be DNR. Chronic Anticoagulation Daughter Karmen Galicia is POA Subjective Date/time seen: 03/30/22 08:28 Patient says he doesn't know if he feels any better this morning. Has questions about the dressing for the wound at the base of his neck. Says he noticed that both of his legs had swelling above where
[2022-03-30 09:07] LABS: Blood Urea Nitrogen 28 mg/dL (9-20); Calcium 8.3 mg/dL (8.4-10.2); Carbon Dioxide > 40 mmol/L (22-30); Chloride 96 mmol/L (98-107); Estimated CRCL calculation 50 ml/min; Estimated Glomerular Filt Rate 58; Glucose 186 mg/dL (65-110); Potassium 3.1 mmol/L (3.4-5.0); Sodium 140 mmol/L (137-145)
[2022-03-30] MEDS: FLECAINIDE ACETATE 100 MG TABLET PO ×2 (10:01→11:56)
[2022-03-30] MEDS: APIXABAN 2.5 MG TABLET PO ×2 (10:02→18:50)
[2022-03-30] MEDS: FUROSEMIDE INJ 40 MG/4 ML VIAL 20 MG IV PUSH (10:02)
[2022-03-30] MEDS: ASPIRIN 81 MG CHEWABLE TABLET PO (10:03)
[2022-03-30] MEDS: MONTELUKAST SODIUM 10 MG TABLET PO (10:03)
[2022-03-30] MEDS: polyethylene glycoL 3350 17 GM POWD.PACK PO (10:03)
[2022-03-30] MEDS: POTASSIUM CHLORIDE 20 MEQ TABLET.ER 40 MEQ PO ×3 (11:33→18:09)
[2022-03-30] MEDS: MAGNESIUM OXIDE 400 MG TABLET PO ×2 (11:54→18:09)
[2022-03-30] MEDS: ISOSORBIDE MONONITRATE 30 MG TAB.ER.24H PO (11:55)
[2022-03-30] MEDS: CHOLECALCIFEROL 1,000 UNITS TABLET 5000 UNITS PO (11:55)
[2022-03-30] MEDS: atenoloL 12.5 MG TABLET PO (11:55)
--- NOTE | 2022-03-30 12:58 | WPDCDIQUERY2 ---
CDI Query Clarification Request 03/28 ER physician documented: Discharge Clinical Impression: ?CHF (congestive heart failure), Hypoxia Emergency Course: Patient is normally on 3 L of oxygen by nasal cannula at home per his most recent discharge instructions.? Patient was not tolerating nasal cannula at 5 L.? Due to his increased breathing patient was placed on BiPAP.? After being on BiPAP and ABG was collected and still show that he had an elevated PCO2.? This x-ray does show interstitial edema.? Patient does have an elevated BNP at 1800.? Patient's influenza and COVID were negative X-ray was read as interstitial infiltrate compatible with nonspecific pneumonia.? Patient is afebrile.? Patient has no leukocytosis.? Patient's BNP is elevated consistent with fluid overload Diagnosis not mentioned after ER review, please clarify if diagnosis: CHF (Congestive Heart Failure), has been ruled in or ruled out. If ruled in: Please clarify if Congestive Heart Failure is: Acute, Chronic, Acute on Chronic or unable to determine. If CHF, (Congestive Heart Failure), is ruled in, please clarify if: Systolic, Diastolic, Combined or unable to determine. <Lauren Mcelroy - Last Filed: 03/30/22 13:06> Clarified Diagnosis (1) CHF (congestive heart failure): Qualifiers: Heart failure chronicity: acute on chronic Heart failure type: unspecified Qualified Code(s): I50.9 - Heart failure, unspecified <Lauren Mcelroy - Last Filed: 03/30/22 13:06> Code(s): I50.9 - Heart failure, unspecified <Lauren Mcelroy - Last Filed: 03/30/22 13:06> Status: Acute <Lauren Mcelroy - Last Filed: 03/30/22 13:06> Assessment and Plan: Acute on chronic. <Alda Miller MD - Last Filed: 04/05/22 01:02>
[2022-03-30 16:55] LABS: Anion Gap 6 mmol/L (8-16); Blood Urea Nitrogen 31 mg/dL (9-20); Calcium 8.2 mg/dL (8.4-10.2); Carbon Dioxide 39 mmol/L (22-30); Chloride 93 mmol/L (98-107); Estimated CRCL calculation 40 ml/min; Estimated Glomerular Filt Rate 45; Glucose 152 mg/dL (65-110); Magnesium 1.8 mg/dL (1.6-2.3); Phosphorus 3.2 mg/dL (2.5-4.5); Potassium 3.2 mmol/L (3.4-5.0); Sodium 138 mmol/L (137-145)
[2022-03-30] MEDS: POTASSIUM CHLORIDE INJ 40 MEQ in SODIUM CHLORIDE 0.9% IV 500 ML 130 MEQ IVPB (18:08)
[2022-03-30] MEDS: TAMSULOSIN HCL 0.4 MG CAPSULE PO (18:09)
[2022-03-30] MEDS: FLUTICASONE/SALMETEROL 115-21 MCG INHALER 1 PUFF 2 PUFF INHALATION (23:04)
[2022-03-31] VITALS (26 sets, daily range): BP systolic 122–159; BP diastolic 50–75; PULSE 79–94; RESP 16–22; TEMP 36.4–36.8; O2SAT 90–100
[2022-03-31] MEDS: ALBUTEROL SULFATE NEB 2.5 MG/3 ML INH 5 MG INHALATION ×5 (04:06→23:59)
[2022-03-31 05:31] LABS: Anion Gap 4 mmol/L (8-16); Blood Urea Nitrogen 38 mg/dL (9-20); Calcium 8.3 mg/dL (8.4-10.2); Carbon Dioxide 36 mmol/L (22-30); Chloride 98 mmol/L (98-107); Estimated CRCL calculation 46 ml/min; Estimated Glomerular Filt Rate 53; Glucose 127 mg/dL (65-110); Potassium 4.4 mmol/L (3.4-5.0); Sodium 138 mmol/L (137-145)
[2022-03-31] MEDS: FLUTICASONE/SALMETEROL 115-21 MCG INHALER 1 PUFF 2 PUFF INHALATION ×2 (08:07→19:23)
--- NOTE | 2022-03-31 08:51 | PM.IMPN ---
Progress Note: A&P Assessment and Plan (1) Acute and chronic respiratory failure: Code(s): J96.20 - Acute and chronic respiratory failure, unspecified whether with hypoxia or hypercapnia Status: Acute Assessment and Plan: Required BIPAP in the ED. Flu a/b and COVID19 negative. No pneumonia on CXR. Chronic anticoagulation for previous PE and a fib. BNP 1810 and CXR with pulmonary edema. Likely increased oxygen requirement due to COPD exacerbation and decompensated heart failure. Improved with oxygen down to 4LNC. -Will continue BIPAP and wean to nasal cannula with goal 3-5LPM oxygen -Albuterol ipratropium neb q4h scheduled -Prednisone 40 mg po daily -Restarted home furosemide 20 mg po daily (2) COPD with acute exacerbation: Code(s): J44.1 - Chronic obstructive pulmonary disease with (acute) exacerbation Status: Acute Assessment and Plan: Flu & COVID19 negative. No evidence of pneumonia at this time. Will defer antibiotics. -Albuterol neb qw4h scheduled -Prednisone 40 mg po daily (3) Hypokalemia: Code(s): E87.6 - Hypokalemia Status: Acute Assessment and Plan: Resolved. (4) Coronary artery disease: Onset Date: ~05/2016 Qualifiers: Coronary Disease-Associated Artery/Lesion type: [place] artery [place] vs. transplanted heart: [place] heart Associated angina: without angina Qualified Code(s): I25.10 - Atherosclerotic heart disease of [place] coronary artery without angina pectoris Code(s): I25.10 - Atherosclerotic heart disease of [place] coronary artery without angina pectoris Status: Acute Assessment and Plan: On bb, asa. Follows with Cardiology. Will continue home medications. February 2020 Lexiscan showed no inducible ischemia. -Continue asa, bb. May benefit from statin but as patient follows with Cardiology will defer and allow them to add a statin outpatient. (5) Chronic kidney disease, stage 3: Qualifiers: Chronic kidney disease stage 3 subtype: stage 3b (GFR 30-44) Qualified Code(s): N18.32 - Chronic kidney disease, stage 3b Code(s): N18.3 - Chronic kidney disease, stage 3 (moderate) Status: Acute Assessment and Plan: Baseline creatinine is 1.4-1.6. Stable. Will monitor. (6) Anemia: Code(s): D64.9 - Anemia, unspecified Status: Acute Assessment and Plan: Chronic likely multifactorial from CKD and chronic illness. Had colonoscopy due to concern for GIB 03/20/22 that showed melanosis coli, internal hemorrhoids, diverticulosis, transverse and ascending colon polyps. No bleeding. Stable. Will monitor. (7) Paroxysmal atrial fibrillation: Code(s): I48.0 - Paroxysmal atrial fibrillation Status: Acute Assessment and Plan: On apixaban and flecainide 100 mg BID at home. Rate controlled. -Tele -Continue home medications (8) Chronic obstructive pulmonary disease: Qualifiers: COPD type: unspecified COPD Qualified Code(s): J44.9 - Chronic obstructive pulmonary disease, unspecified Code(s): J44.9 - Chronic obstructive pulmonary disease, unspecified Status: Acute Assessment and Plan: Takes Combivent and Symbicort at home. Holding for now with acute exacerbation. Will plan to restart for discharge. Additional Plan Patient is fully alert and oriented and chose to be DNR. Chronic Anticoagulation Daughter Karmen Galicia is POA Subjective Date/time seen: 03/31/22 08:51 Patient has questions about his inhalers and why he is getting so many treatments. Patient says he takes the his Combivent inhaler four times a day and symbicort twice a day at home. He says he feels better and that his breathing is better. Review of Systems Respiratory: Respiratory: Denies dyspnea Exam Narrative: GENERAL: NAD, cooperative, looks much better today HEENT: Normocephalic, atraumatic, anicteric, NECK: Supple
[2022-03-31] MEDS: POTASSIUM CHLORIDE 20 MEQ TABLET.ER 40 MEQ PO (09:16)
[2022-03-31] MEDS: atenoloL 12.5 MG TABLET PO (09:17)
[2022-03-31] MEDS: MONTELUKAST SODIUM 10 MG TABLET PO (09:17)
[2022-03-31] MEDS: CHOLECALCIFEROL 1,000 UNITS TABLET 5000 UNITS PO (09:17)
[2022-03-31] MEDS: ISOSORBIDE MONONITRATE 30 MG TAB.ER.24H PO (09:18)
[2022-03-31] MEDS: ASPIRIN 81 MG CHEWABLE TABLET PO (09:18)
[2022-03-31] MEDS: predniSONE 20 MG TABLET 40 MG PO (09:18)
[2022-03-31] MEDS: FLECAINIDE ACETATE 100 MG TABLET PO ×2 (09:18→20:51)
[2022-03-31] MEDS: polyethylene glycoL 3350 17 GM POWD.PACK PO ×2 (09:19→17:43)
[2022-03-31] MEDS: FUROSEMIDE 20 MG TABLET PO (09:19)
[2022-03-31] MEDS: APIXABAN 2.5 MG TABLET PO ×2 (09:26→17:43)
[2022-03-31] MEDS: TAMSULOSIN HCL 0.4 MG CAPSULE PO (17:43)
[2022-04-01] VITALS (11 sets, daily range): BP systolic 130–155; BP diastolic 62–80; PULSE 73–95; RESP 14–22; TEMP 36.4–36.9; O2SAT 95–100
[2022-04-01] MEDS: ALBUTEROL SULFATE NEB 2.5 MG/3 ML INH 5 MG INHALATION (04:39)
[2022-04-01 05:51] LABS: Anion Gap 2 mmol/L (8-16); Blood Urea Nitrogen 44 mg/dL (9-20); Calcium 8.3 mg/dL (8.4-10.2); Carbon Dioxide 35 mmol/L (22-30); Chloride 99 mmol/L (98-107); Estimated CRCL calculation 47 ml/min; Estimated Glomerular Filt Rate 53; Glucose 109 mg/dL (65-110); Potassium 4.6 mmol/L (3.4-5.0); Sodium 136 mmol/L (137-145)
[2022-04-01] MEDS: FLUTICASONE/SALMETEROL 115-21 MCG INHALER 1 PUFF 2 PUFF INHALATION (07:50)
--- NOTE | 2022-04-01 08:34 | PM.DS ---
DS: Admitting Diagnosis Discharge Date 04/01/22 Admitting Diagnosis COPD exacerbation, volume overload DS: Discharge Diagnosis Discharge Diagnosis (1) Acute and chronic respiratory failure: Code(s): J96.20 - Acute and chronic respiratory failure, unspecified whether with hypoxia or hypercapnia Status: Acute Assessment and Plan: Required BIPAP in the ED. Flu a/b and COVID19 negative. No pneumonia on CXR. Chronic anticoagulation for previous PE and a fib. BNP 1810 and CXR with pulmonary edema. Likely increased oxygen requirement due to COPD exacerbation and decompensated heart failure. -Will continue BIPAP and wean to nasal cannula with goal 3-5LPM oxygen -Restart home combivent and spiriva -Prednisone 40 mg po daily to stop on 04/02 -Restarted home furosemide 20 mg po daily (2) COPD with acute exacerbation: Code(s): J44.1 - Chronic obstructive pulmonary disease with (acute) exacerbation Status: Acute Assessment and Plan: Flu & COVID19 negative. No evidence of pneumonia at this time. Will defer antibiotics. -Restart combivent and Spiriva for home -Prednisone 40 mg po daily to stop on 04/02 (3) Hypokalemia: Code(s): E87.6 - Hypokalemia Status: Acute Assessment and Plan: Resolved. (4) Coronary artery disease: Onset Date: ~05/2016 Qualifiers: Associated angina: without angina Coronary Disease-Associated Artery/Lesion type: [place] artery [place] vs. transplanted heart: [place] heart Qualified Code(s): I25.10 - Atherosclerotic heart disease of [place] coronary artery without angina pectoris Code(s): I25.10 - Atherosclerotic heart disease of [place] coronary artery without angina pectoris Status: Acute Assessment and Plan: On bb, asa. Follows with Cardiology. Will continue home medications. February 2020 Lexiscan showed no inducible ischemia. -Continue asa, bb. May benefit from statin but as patient follows with Cardiology will defer and allow them to add a statin outpatient. (5) Chronic kidney disease, stage 3: Qualifiers: Chronic kidney disease stage 3 subtype: stage 3b (GFR 30-44) Qualified Code(s): N18.32 - Chronic kidney disease, stage 3b Code(s): N18.3 - Chronic kidney disease, stage 3 (moderate) Status: Acute Assessment and Plan: Baseline creatinine is 1.4-1.6. Stable. Will monitor. (6) Anemia: Code(s): D64.9 - Anemia, unspecified Status: Acute Assessment and Plan: Chronic likely multifactorial from CKD and chronic illness. Had colonoscopy due to concern for GIB 03/20/22 that showed melanosis coli, internal hemorrhoids, diverticulosis, transverse and ascending colon polyps. No bleeding. Stable. Will monitor. (7) Paroxysmal atrial fibrillation: Code(s): I48.0 - Paroxysmal atrial fibrillation Status: Acute Assessment and Plan: On apixaban and flecainide 100 mg BID at home. Rate controlled. -Tele -Continue home medications (8) Chronic obstructive pulmonary disease: Qualifiers: COPD type: unspecified COPD Qualified Code(s): J44.9 - Chronic obstructive pulmonary disease, unspecified Code(s): J44.9 - Chronic obstructive pulmonary disease, unspecified Status: Acute Assessment and Plan: Takes Combivent and Symbicort at home. Holding for now with acute exacerbation. Will plan to restart for discharge. DS: Summary Hospital Course Reason for hospitalization: Shortness of breath Hospital Course: 81M with a past medical history of AAA repair 2003, COPD on 3.5LNC at rest and 4-5L with movement continuous, coronary artery disease, chronic kidney disease, atrial flutter, tremor, depression, BPH with urinary retention, anxiety who presented to the emergency department with shortness of breath. Patient was found to be having an acute COPD exacerbation as well as decompensated heart failure with volume
[2022-04-01] MEDS: polyethylene glycoL 3350 17 GM POWD.PACK PO (08:58)
[2022-04-01] MEDS: CHOLECALCIFEROL 1,000 UNITS TABLET 5000 UNITS PO (08:59)
[2022-04-01] MEDS: predniSONE 20 MG TABLET 40 MG PO (08:59)
[2022-04-01] MEDS: ASPIRIN 81 MG CHEWABLE TABLET PO (09:00)
[2022-04-01] MEDS: APIXABAN 2.5 MG TABLET PO (09:00)
[2022-04-01] MEDS: FLECAINIDE ACETATE 100 MG TABLET PO (09:00)
[2022-04-01] MEDS: atenoloL 12.5 MG TABLET PO (09:00)
[2022-04-01] MEDS: ISOSORBIDE MONONITRATE 30 MG TAB.ER.24H PO (09:01)
[2022-04-01] MEDS: MONTELUKAST SODIUM 10 MG TABLET PO (09:01)
[2022-04-01] MEDS: FUROSEMIDE 20 MG TABLET PO (09:01)
--- NOTE | 2022-04-01 15:04 | PC.NURSE ---
Patient discharged to home today with family members. Pandey catheter was removed and patient urinated prior to discharge. Education was provided to all on home health follow-up and physician follow-up and home meds. Patient and family had no questions at this time.
== END 2022-04-01 15:00 | disposition home or self-care (01) | DRG 190 ==
LOC: ANHED 03-29 03:36 → ANHIMU 03-29 03:56
PROVIDERS: Admitting Provider Internal Medicine; Emergency Provider Emergency Medicine; PCP Emergency Medicine; Visit Provider Family Medicine
DX: J44.1 Chronic obstructive pulmonary disease with (acute) exacerbation (principal); J96.20 Acute and chronic respiratory failure, unspecified whether with hypoxia or hypercapnia; I13.0 Hypertensive heart and chronic kidney disease with heart failure and stage 1 through stage 4 chronic kidney disease, or unspecified chronic kidney disease; Z20.822 Contact with and (suspected) exposure to COVID-19; Z66 Do not resuscitate; I25.10 Atherosclerotic heart disease of native coronary artery without angina pectoris; N18.32 Chronic kidney disease, stage 3b; D64.9 Anemia, unspecified; I48.0 Paroxysmal atrial fibrillation; Z87.891 Personal history of nicotine dependence; Z85.51 Personal history of malignant neoplasm of bladder; F41.8 Other specified anxiety disorders; Z86.711 Personal history of pulmonary embolism; E78.5 Hyperlipidemia, unspecified; N40.0 Benign prostatic hyperplasia without lower urinary tract symptoms; Z87.01 Personal history of pneumonia (recurrent); Z79.899 Other long term (current) drug therapy; Z99.81 Dependence on supplemental oxygen; E87.6 Hypokalemia; I50.9 Heart failure, unspecified; Z79.51 Long term (current) use of inhaled steroids; Z79.82 Long term (current) use of aspirin
CPT/HCPCS: 36415; 36600; 71045; 80048; 80053; 81001; 82805; 83735; 83880; 84100; 85025; 87502; 94002; 94003; 94640; 96374; 96376; 97110; 97161; 97165; 97530; 99285; A9270; C9803; G0378; J1940; J2930; J3480; J7040; J7512; U0003; U0005

== ENCOUNTER 2022-04-04 01:25 | Observation (INO) | payer MEDICARE, SELFPAY ==
[2022-04-04] VITALS (21 sets, daily range): BP systolic 114–156; BP diastolic 56–93; PULSE 86–122; RESP 16–36; TEMP 37–38.1; O2SAT 90–100; BMI 31.0
--- NOTE | ~2022-04-04 | XR_ITS ---
EXAMINATION: XR chest 1V portable DATE: 04/04/2022 02:15 INDICATION: Shortness of breath TECHNIQUE: frontal view of the chest was obtained. COMPARISON: Chest radiograph dated 03/29/[address] dated 01/27/2022 FINDINGS: Hyperexpansion of lungs consistent with emphysema better appreciated on prior CT. Interval improvemen t in the interstitial opacities in the right mid and upper lung zones. Persistent airspace streaky op acities in the left mid and bilateral lower lung zones. No pleural effusion or pneumothorax. Cardiome felix. Aneurysmal aortic arch. IMPRESSION: 1. Bilateral airspace opacities, decreased in the right mid and upper lung zones are without signific ant change in the left mid and bilateral lower lung zones which could represent improving pulmonary e pop or pneumonia. 2. Cardiac likely. 3. Aneurysmal aortic arch. Reviewed, dictated and finalized at location A. IMPRESSION: 1. Bilateral airspace opacities, decreased in the right mid and upper lung zone s are without significant change in the left mid and bilateral lower lung zones which could represent improving pulmonary edema or pneumonia. 2. Cardiac likely. 3. Aneurysmal aortic arch.
--- NOTE | 2022-04-04 01:57 | ED.GENADULT ---
HPI - General Adult General Chief complaint: Chest Pain Stated complaint: CP/SOB History of Present Illness HPI narrative: 81-year-old male with history of COPD, chronic kidney disease, A. fib with RVR, baseline tremor, presents to the emergency department for evaluation of not feeling well and worsening confusion. Patient was just discharged from the hospital on Saturday. Patient is cared for at home by his daughter. Daughter states that since Saturday he has had declining status. She states earlier in the evening he was complaining of chest pain. She also states that he has been confused. Upon arrival to the emerge department patient denies any complaints other than not feeling well. Patient denies any current chest pain or abdominal pain. Related Data Home Medications Medication Instructions Recorded Confirmed budesonide-formoterol HFA 160 2 puff inhalation BID 10/27/19 03/29/22 mcg-4.5 mcg/actuation aerosol inhaler (Symbicort) fluticasone propionate 50 1 spray intranasal DAILY PRN 10/27/19 03/29/22 mcg/actuation nasal Allergy Symptoms spray,suspension ipratropium 20 mcg-albuterol 100 1 puff inhalation QID 10/27/19 03/29/22 mcg/actuation mist for inhalation (Combivent Respimat) isosorbide mononitrate 30 mg 30 mg PO DAILY 10/27/19 03/29/22 tablet,extended release 24 hr aspirin 81 mg chewable tablet 81 mg PO DAILY 02/23/20 03/29/22 cholecalciferol (vitamin D3) 125 125 mcg PO DAILY 02/23/20 03/29/22 mcg (5,000 unit) tablet (Vitamin D3) nitroglycerin 0.4 mg sublingual 0.4 mg sublingual DIRECTED PRN 02/23/20 03/29/22 tablet Chest pain albuterol sulfate 90 mcg/actuation 2 puff inhalation QID PRN dyspnea 07/12/21 03/29/22 aerosol inhaler atenolol 25 mg tablet 12.5 mg PO DAILY 03/18/22 03/29/22 famotidine 20 mg tablet (Pepcid) 20 mg PO DAILY PRN Indigestion 03/18/22 03/29/22 furosemide 40 mg tablet 0.5 tablet PO DAILY 03/18/22 03/29/22 apixaban 2.5 mg tablet (Eliquis) 2.5 mg PO BID 03/29/22 03/29/22 flecainide 100 mg tablet 100 mg PO Q12H 03/29/22 03/29/22 Allergies Allergy/AdvReac Type Severity Reaction Status Date / Time budesonide Allergy Severe Difficulty Verified 03/20/22 11:00 [From [facility]] Breathing formoterol Allergy Severe Difficulty Verified 03/20/22 11:00 [From [facility]] Breathing glycopyrrolate Allergy Severe Difficulty Verified 03/20/22 11:00 [From [facility]] Breathing tetanus and diphtheria Allergy Severe FEVER, Verified 03/20/22 11:00 toxoids [place] clindamycin Allergy Unknown RASH Verified 03/20/22 11:00 amiodarone AdvReac Severe liver Verified 03/20/22 11:00 toxicity pantoprazole AdvReac Mild Nausea Verified 03/20/22 11:00 Review of Systems Review of Systems: CONSTITUTIONAL: See HPI EYES: Denies visual changes, redness, or discharge. ENT: Denies rhinorrhea, congestion, sore throat, or otalgia. CARDIOVASCULAR: Denies chest pain, palpitations, or edema. RESPIRATORY: See HPI GASTROINTESTINAL: Denies abdominal pain, nausea, vomiting, or diarrhea. GENITOURINARY: Denies dysuria or hematuria. SKIN: Denies rash or itching. MUSCULOSKELETAL: Denies back pain, joint pain, or myalgia. NEUROLOGIC: Denies headache, numbness, or weakness. [facility] Past Medical History Medical History (Updated 04/04/22 @ 03:08 by Gavin Watt MD) Atrial flutter with rapid ventricular response (~03/2017) Status post DC cardioversion. Benign prostatic hyperplasia Bladder cancer (~06/2019) Noninvasive low-grade papillary urothelial carcinoma. Bowel obstruction Chronic anemia Chronic kidney disease, stage 3 Baseline creatinine ranges between 1.3 and 1.50. Chronic obstructive pulmonary disease Chronic respiratory failure with hypoxia, on home oxygen therapy Compression fracture Chronic compression fractures in the low thoracic and lumbar spine. Coronary artery disease (~05/2016) Cardiac catheterization per Dr. Bills showed a 99% mid RCA lesion wi
[2022-04-04 02:01] LABS: Basophils Percent Auto 0.2 % (0.2-1.2); Eosinophils Absolute Auto 0.6 K/mm3 (0-0.3); Eosinophils Percent Auto 7.2 % (0-4.4); Hematocrit 25.5 % (42.0-52.0); Hemoglobin 7.5 g/dL (14.0-18.0); Immature Granulocyte Absolute 0.24 K/mm3 (0.00-0.031); Immature Granulocyte Percent A 2.9 % (0-0.5); Lymphocytes Absolute Auto 0.58 K/mm3 (0.9-3.2); Mean Corpuscular HGB Conc 29.4 g/dl (32-36); Mean Corpuscular Hemoglobin 27.5 pg (26-34); Mean Corpuscular Volume 93.4 fl (80-100); Mean Platelet Volume 9.6 fl (7.4-10.4); Monocytes Absolute Auto 0.7 K/mm3 (0.1-0.6); Monocytes Percent Auto 8.6 % (2.6-8.5); Neutrophils Absolute Auto 6.2 K/mm3 (1.3-6.7); Neutrophils Percent Auto 74.1 % (45.5-73.1); Nucleated Red Blood Cells Perc 0.4 % (0.0-0.2); Platelet Count Result 256 k/mm3 (150-375); Red Blood Count 2.73 M/mm3 (4.6-6.20); Red Cell Distribution Width 14.7 % (11.5-14.5); White Blood Count 8.3 K/mm3 (4.5-10.0)
[2022-04-04] MEDS: ALBUTEROL SULFATE NEB 2.5 MG/3 ML INH 5 MG INHALATION ×3 (02:01→13:45)
[2022-04-04] MEDS: IPRATROPIUM BR 0.02% INH SOLN 0.5 MG/2.5 ML VIAL INHALATION (02:01)
[2022-04-04 02:07] LABS: Alveolar/Arterial O2 Gradient 112.3 mmHg; Base Excess ABG 7.4 mEq/l (+/-2.0); Fractional Inspired Oxygen 36 %; HCO3 ABG 31.8 mEq/l (22.0-26.0); Oxygen Content ABG 10.8 %vol (16.0-22.0); Oxygen Saturation ABG 97.4 % (95.0-100.0); Oxyhemoglobin 94.7 % THb (90.0-100.0); PCO2 ABG 44.6 mmHg (35.0-45.0); PO2 ABG 92.6 mmHg (80.0-100.0); PO2 FiO2 Ratio Arterial Blood 2.57 %; pH ABG 7.471 (7.350-7.450)
[2022-04-04 02:08] LABS: Device NASAL CANNULA; Modified Allen's Test Pass; Site Drawn LEFT RADIAL
[2022-04-04 02:13] LABS: Alanine Aminotransferase 23 U/L (6-50); Albumin Level 3.1 g/dL (3.5-5.1); Alkaline Phosphatase 75 U/L (38-126); Anion Gap 2 mmol/L (8-16); Aspartate Amino Transferase 22 U/L (17-59); Bilirubin,Total 0.1 mg/dL (0.2-1.3); Blood Urea Nitrogen 40 mg/dL (9-20); Calcium 8.6 mg/dL (8.4-10.2); Carbon Dioxide 38 mmol/L (22-30); Chloride 99 mmol/L (98-107); Estimated CRCL calculation 41 ml/min; Estimated Glomerular Filt Rate 45; Glucose 111 mg/dL (65-110); Potassium 4.3 mmol/L (3.4-5.0); Sodium 139 mmol/L (137-145)
[2022-04-04 02:22] LABS: NT Pro B Type Natriuretic Pept 1370 pg/mL (5-100)
[2022-04-04 02:41] LABS: Appearance Urine Clear (Clear); Bilirubin Urine Negative (Negative); Color Urine Yellow (Yellow); Glucose Urine UA Negative (Negative); Ketones Urine Negative (Negative); Leukocyte Esterase Ur Negative LEU/UL (Negative); Nitrate Urine Negative (Negative); Protein Urine Negative (Negative); Urobilinogen Urine 0.2 mg/dL (<2.0); pH Urine 5.5 (5.0-9.0)
[2022-04-04 02:44] LABS: Add Urine Microscopic? YES; Blood Urine Trace-Intact (Negative)
[2022-04-04 02:51] LABS: RBC Urine 0-2 /hpf (0-2); WBC Urine 0-3 /hpf
[2022-04-04 03:14] LABS: Influenza A QL RT-PCR Negative (Negative); Influenza B QL RT-PCR Negative (Negative); SARS-CoV-2 RNA PCR Negative
--- NOTE | 2022-04-04 08:51 | PM.IMHP ---
H&P: HPI History of Present Illness Date/Time: 04/04/22 08:51 Chief Complaint: Not feeling well Narrative: This patient is an 81-year-old male with past medical history of COPD, CKD, AFib with RVR, baseline tremor. Patient presented to [facility] by his daughter. She reports that the patient is not ?feeling well? and has increased worsening confusion since discharge on Saturday. Patient was cared for by daughter. Daughter states that he has been continuously declined. She also reports the patient had some chest pain, although the emergency department he denied having chest pain. Patient was able to speak to the emergency department physician without difficulty. He denies any chest pain or abdominal pain, shortness breath. While in the emergency department emergency department physician spoke to the patient and the family about possible senior living placement. Family denied senior living placement. This discussion has taken place multiple times during the patient's multiple hospitalizations within the last several months. Patient recently had an EGD and colonoscopy with minimal findings. Patient was just discharged on the 01 of April, at that time the patient was brought to the emergency department because the daughter believed the patient was having an allergic reaction to medication he has been taking. At that time his finasteride was DC then the patient was transition to tamsulosin and set home with his home medication list. While in the emergency department for this admission the patient had labs and imaging performed. Patient's hemoglobin 7.5, hematocrit 25.5, WBC 8.3 and platelet count of 256. An ABG was performed which revealed a pH of 7.471, pCO2 44.6, PO2 92.6 and a bicarb of 31.8, sodium 139, potassium 4.3, chloride 99, carbon dioxide 38, anion gap 2, BUN 40, creatinine 1.5-this is the patient's baseline, GFR 45, glucose 111. BNP mildly elevated at 1370 although given the patient's age of 81, this value was normal. UA negative and patient was negative for influenza a and B as well as the COVID-19 virus. Chest x-ray was performed which revealed bilateral airspace opacities decreased right mid and upper lung zones consistent with improving pulmonary edema and/or pneumonia. AAA also visualized. Patient is being referred to observation from the emergency department for further evaluation for possible failure to thrive. Will have continue discussion about plan of care and requirements for the custodial facility to improve strength and mobility. Case Management to be consulted for further management and discussions. Review of Systems Review of Systems: All systems reviewed & are unremarkable except as noted in HPI and below [facility] Past Medical History Medical History (Updated 04/04/22 @ 03:08 by Gavin Watt MD) Atrial flutter with rapid ventricular response (~03/2017) Status post DC cardioversion. Benign prostatic hyperplasia Bladder cancer (~06/2019) Noninvasive low-grade papillary urothelial carcinoma. Bowel obstruction Chronic anemia Chronic kidney disease, stage 3 Baseline creatinine ranges between 1.3 and 1.50. Chronic obstructive pulmonary disease Chronic respiratory failure with hypoxia, on home oxygen therapy Compression fracture Chronic compression fractures in the low thoracic and lumbar spine. Coronary artery disease (~05/2016) Cardiac catheterization per Dr. Bills showed a 99% mid RCA lesion with unsuccessful PTCA as lesion was unable to be crossed. Depression with anxiety Essential hypertension Hyperlipidemia Osteoarthritis Paroxysmal atrial fibrillation Pneumonia Pulmonary embolism Tremor Surgical History Surgical History History of abdominal aortic aneurysm repair (~2003) History of cardiac cath History of cataract extraction History of cholecystectomy History of inguinal hernia repair Status post surgical removal
--- NOTE | 2022-04-04 09:01 | ECHO_ITS ---
Patient Info Name: Kenan Grubbs Age: 81 years : 1940 Gender: Male Ht: 70 in Wt: 220 lbs BSA: 2.25 m2 HR: 41 bpm BP: 156 / 56 mmHg Heart Rhythm: Sinus Rhythm Technical Quality: Fair Exam Date: 04/04/2022 2:16 PM Exam Location: [facility] Patient Status: Outpatient Admit Date: 04/04/2022 Staff Ordering Physician: Princess Burleson APRN Electrolysis Operator: Nisha Jackson RDCS Attending Provider: Magi Barron MD Referring Physician: Benjy GONZALEZ; Exam Type: CA echo doppler color flow Study Info Indications - sob Complete two-dimensional, color flow and Doppler transthoracic echocardiogram is performed. Summary 1. Complete two-dimensional, color flow and Doppler transthoracic echocardiogram is performed. 2. Normal left ventricular size thickness with hyperdynamic left ventricular systolic function. No segmental wall motion abnormalities. Ejection fraction greater than 70%. Indeterminate diastolic function. 3. No pulmonary hypertension, estimated pulmonary arterial systolic pressure is 34 mmHg. 4. No significant valve disease. 5. Sinus tachycardia. Left Ventricle Left ventricular chamber dimension is normal. Left ventricular systolic function is hyperdynamic, estimated at >70%. There is no increased left ventricular wall thickness. Left ventricular septal wall motion is normal. The left ventricular diastolic function is indeterminate. Right Ventricle Right ventricular chamber dimension is normal. Right ventricular systolic function is normal. Left Atria Left atrial chamber dimension is normal. Right Atria Right atrial chamber dimension is normal. Aortic Valve The aortic valve is trileaflet. There is no aortic valve sclerosis. There is no aortic valve stenosis. There is no aortic valve regurgitation. Pulmonic Valve The pulmonic valve is normal. There is no pulmonic valve stenosis. There is no pulmonic regurgitation. Mitral Valve The mitral valve has calcified annulus. There is no mitral valve stenosis. There is trace mitral valve regurgitation. Tricuspid Valve The tricuspid valve leaflets are normal. There is no significant tricuspid valve stenosis. There is trace tricuspid valve regurgitation. No pulmonary hypertension, estimated pulmonary arterial systolic pressure is 34 mmHg. Pericardium/Pleural The pericardium appears normal. There is no pericardial effusion. Inferior Vena Cava Normal inferior vena cava with >50% collapse upon inspiration consistent with Empty right atrial pressure, 10 mmHg. Aorta The aortic root size at the sinus of Valsalva is normal. The prox ascending aorta size is normal. Left Ventricular Outflow Tract Name Value Normal LVOT 2D LVOT Diameter 1.9 cm LVOT Doppler LVOT Peak Velocity 127 cm/s LVOT Peak Gradient 6 mmHg LVOT Mean Gradient 3 mmHg LVOT VTI 20 cm LVOT VTI/AV VTI Ratio 0.8 LVOT Stroke Volume 57 ml LVOT CO
--- NOTE | 2022-04-04 09:48 | PC.NURSE ---
Patients daughter called to give room assignment 206-1.
--- NOTE | 2022-04-04 10:46 | ADMGEN ---
This patient, Kenan Grubbs, was admitted to IMU Room 206-01 at 1010 on 04/04/2022. Report received from Nydia BRODERICK. Patient/family oriented to hospital policies and general routines including ID bracelet, bed and alarms, visiting hours, pain management, procedures, bathroom and other care routines, personal items, smoking policy, room service/diet, and visiting hours. Information on how to activate the Rapid Response Team has been discussed. Patient/Family are encouraged to report perceived risks to care and to ask questions if they do not understand what they are told or what they should do.
--- NOTE | 2022-04-04 13:32 | ECG_ITS ---
Measurements Intervals Velpen Rate: 98 P: 50 AR: 225 QRS: -49 QRSD: 157 T: 27 QT: 359 QTc: 460 Interpretive Statements SINUS RHYTHM WITH FIRST DEGREE AV BLOCK RIGHT BUNDLE BRANCH BLOCK [120+ ms QRS DURATION, UPRIGHT V1, 40+ ms S IN I/aVL/V4/V5/V6] LEFT ANTERIOR FASCICULAR BLOCK [QRS AXIS <= -45, QR IN I, RS IN II] COMPARED TO ECG 03/18/2022 10:04:37 NO SIGNIFICANT CHANGES Electronically Signed On 04-05-2022 17:53:50 CDT by Gladys Jenkins M.D.
--- NOTE | 2022-04-04 13:37 | PCOTNOTE ---
Attempted occupational therapy evaluation this afternoon, patient would not follow commands and would occasionally respond to questions. Will attempt tomorrow to see if more coherent. RN notified.
--- NOTE | 2022-04-04 14:07 | PCPTNOTE ---
Attempted physical therapy evaluation this afternoon, patient would not follow commands and would occasionally respond to questions. Will attempt tomorrow to see if more coherent. RN notified.
--- NOTE | 2022-04-04 15:45 | WPDPROCEDUR ---
Procedures Intubation Intubation Date: 04/04/22 Intubation Time: 15:45 Consent: No consent. Emergent need. A pre-procedural Time-Out was completed immediately before starting the procedure and confirmed: Patient Identification, Site, Procedure, Patient Position and the Availability of Requisite Equipment: No Sedative: etomidate Mg given: 30 Paralytic: succinylcholine Mg given: 100 Laryngoscope: fiber optic video scope Assist device used: fiber optic device ET tube size: 8 Tube secured depth (cm): 23 Tube secured location: lips Tube placement confirmation: visualized tube passing through cords, equal breath sounds bilaterally, no breath sounds over epigastrium and confirmation by capnometry Patient tolerated procedure: well Additional comments: I was called to the room to intubate the patient post-code. On arrival, the patient demonstrated agonal breathing and the respiratory therapist was providing respirations via bag valve mask. I attempted to open the patients mouth for examination but his jaw was tight and thus etomidate and succinylcholine were given for RSI. Initial attempt with MAC 4 laryngoscope was unsuccessful due to the patients long mustache which obscured the view. The laryngoscope was immediately removed and he was bagged easily while the mustache was trimmed. The glidescope was then used to intubate the patient quickly and atraumatically on first attempt. Placement was confirmed by visualization of the rubes passing through the cords, misting in the tube, color change by capnography, and equal breath sounds over the lungs.
--- NOTE | 2022-04-04 16:22 | PM.DDS ---
Discharge Summary Date and Time Date of : 04/04/22 Time of : 16:07 Probable Cause of Probable Cause of : Possible acute hypoxic respiratory failure Summary Hospital Course: Patient is an 81-year-old male with a past medical history of COPD CKD, AFib with RVR, baseline tremors. Patient presented to the [facility] emergency department with his daughter with reports of not feeling well since discharge. Patient had increasing confusion since discharge on Saturday. Patient is cared by his daughter. Daughter reported that he has continuously declined after multiple hospitalizations. The daughter also reported the patient chest pain at home although the patient denied this to the emergency department physician. The patient was recently discharged on April 01 after being treated for congestive heart failure and administered furosemide IV P with improvement. The patient was discharged at that time. Patient also return to the emergency department due to a possible allergic reaction to finasteride, this medication was discontinued and the patient was transitioned tamsulosin and sent home with this home medication list. While in the emergency department the patient's hemoglobin was noted to be 7.5, hematocrit 25.5, WBC 8.3 and platelet count of 256. ABG performed which revealed a pH of 7.47, pCO2 44.6, PO2 92.6 and bicarb is 31.8, sodium 139, potassium 4.3, chloride 99, carbon dioxide 38 and anion gap of 2. BUN 40, creatinine 1.5-this is the patient's baseline, GFR 45 and a glucose of 111. BNP was mildly elevated at 13 70 older given the patient's age of 81 this is considered a normal value. UA was negative and the patient's influenza a and B as well as COVID-19 virus PCR was negative. Chest x-ray that was performed in the emergency room department revealed bilateral airspace opacities decreased right mid and upper lung zones consistent with improving pulmonary edema and/or pneumonia since his last hospitalization. AAA was also visualized. Initially the patient was admitted for failure to thrive due to no significant findings in the emergency department with further workup by hospitalist team. Echocardiogram was ordered, B12, iron iron panel and other labs were obtained. During the evaluation in the morning the patient reported he was doing well and just felt mildly weak after being in consistently and out of the hospital for the last several months. Discussed possible placement, patient refused. Patient did not eat his lunch and reported mild nausea. Call it was pressed and nursing staff was notified. Patient requested to wait to call his daughter as she was up in the emergency department with him all night and call later in the evening. However, later on in the day a rapid response was called due to the daughter being present in the room. She recognized the patient did not have his oxygen on and he was found unresponsive. Daughter reported she felt a pulse at that time. She notified nursing staff who was able to call the rapid response. Shortly after a call for the rapid response a code blue was called as the patient had lost his pulse. His daughter wished to continue with chest compressions, IV Push medications and defibrillation if necessary. She was also agreeable to intubation. RASC was obtained. However the patient still had agonal breathing. Patient required intubation to maintain oxygen saturations. Patient was a difficult intubation however was obtained by jazzmine CASTELLANO. shortly after intubation the patient became asystole and chest compressions were started again. Patient's daughter and power of document review attorney decided to discontinue active code. Therefore the patient at 4:07 p.m. Additional Data Confirmation of as documented by pronouncing clinician: [facility] Family: at bedside Additional persons at bedside: other Name of Provider Notified: Princess Burleson NP Was code activated?: Yes Hospice patient?: No
--- NOTE | 2022-04-04 16:24 | PC.NURSE ---
At 1535, this RN was on the phone with a executive director of marketing in regards to another patient when the patient's (Kenan Grubbs) daughter came out to the nurse's station stating that the patient was not wearing any oxygen and was not responding. The patient had been confused and was removing his nasal cannula several times throughout the day. I immediately got off the phone with the executive director of marketing and went in to assess the patient. Upon entering the room the patient was unresponsive but still had a weak pulse. I immediately called a Rapid Response and within 60 seconds a Code Blue. Patient at 1607.
== END 2022-04-04 16:07 | disposition expired ==
LOC: ANHED 03:08 → ANHIMU 09:49
PROVIDERS: Admitting Provider Internal Medicine; Emergency Provider Emergency Medicine; PCP Emergency Medicine; Visit Provider Nurse Practitioner Family
DX: R62.7 Adult failure to thrive (principal); R25.1 Tremor, unspecified; R07.9 Chest pain, unspecified; R06.02 Shortness of breath; D64.9 Anemia, unspecified; J44.9 Chronic obstructive pulmonary disease, unspecified; I48.91 Unspecified atrial fibrillation; Z79.82 Long term (current) use of aspirin; N18.30 Chronic kidney disease, stage 3 unspecified; I25.10 Atherosclerotic heart disease of native coronary artery without angina pectoris; I13.0 Hypertensive heart and chronic kidney disease with heart failure and stage 1 through stage 4 chronic kidney disease, or unspecified chronic kidney disease; I50.9 Heart failure, unspecified; E78.5 Hyperlipidemia, unspecified; Z85.51 Personal history of malignant neoplasm of bladder; Z86.711 Personal history of pulmonary embolism; Z79.01 Long term (current) use of anticoagulants; Z87.891 Personal history of nicotine dependence; Z20.822 Contact with and (suspected) exposure to COVID-19
CPT/HCPCS: 31500; 36415; 36600; 51701; 71045; 80053; 81001; 82805; 83880; 85025; 87040; 87502; 92950; 93005; 93306; 94640; 96365; 96366; 96367; 99285; C1751; C9803; G0378; J0330; J0456; J0692; J3370; U0003; U0005